=== PATIENT | male | born 1940 | race Caucasian/White ===

== ENCOUNTER 2016-11-20 19:35 | Inpatient (IN) | payer MEDICARE, OTHER ==
[~2016-11-20] VITALS: Ht 180.3 cm; Wt 87.4 kg
[~2016-11-20 19:35] MED LIST: ACET-2321 PO; ACET-62 PO; ACET325T51 PO; ASPI81TA2 PO; ATOR40TA64 PO; CARV25TA PO; CARV6.252 PO; CHOL100047 PO; CILO50TA PO; CLIN300C86 PO; DOCU-175 PO; DONE23TA7 PO; ESCI10TA PO; FLUT16SP EA NOSTRIL; FURO20TA4 PO; FURO40TA5 PO; IPRA3AMP AEROSOL; LATA2.5D7 BOTH EYES; MAGN400T6 PO; MULT-933 PO; NYST15CR TOP; OLAN20TA17 PO; PANT40TA27 PO; POLY17PO6 PO; POTA-81 PO; TIMO5DRO7 OP; VITA1TAB21 PO; WARF1TAB6 PO; WARF5TAB6 PO; [UNRECOGNIZED DRUG - CODE] BOTH EYES
[2016-11-20 19:43] VITALS: BP 126/92; PULSE 95; RESP 16; TEMP 97.6; O2SAT 96
--- OUTSIDE RECORDS SUMMARY | 2016-11-20 19:59 | XMS REPORT | Continuity of Care Document ---
Author Author [facility] Organization [facility] Address Unknown Phone Unavailable Allergies Active Description Code Type Severity Reaction Onset Reported/Identified Relationship to Patient Clinical Status Yes NKDA N/A N/A Yes No Known Drug Allergies No Known Drug Allergies Drug Allergy Unknown NKDA 03/02/2013 Medications Problems Date Dx Coded Attending Type Code Diagnosis Diagnosed By 03/09/2013 Raghu Barfield MD 272.4 HYPERLIPIDEMIA NEC/NOS 03/09/2013 Raghu Barfield MD 275.2 DIS MAGNESIUM METABOLISM 03/09/2013 Raghu Barfield MD 276.8 HYPOPOTASSEMIA 03/09/2013 Raghu Barfield MD 285.1 AC POSTHEMORRHAG ANEMIA 03/09/2013 Raghu Barfield MD 365.9 GLAUCOMA NOS 03/09/2013 Raghu Barfield MD 403.90 HYPTNSV CHR KID DIS, UNSPEC, 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 03/09/2013 Raghu Barfield MD 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 [place] CORONARY VESSEL 03/09/2013 Raghu Barfield MD 427.31 ATRIAL FIBRILLATION 03/09/2013 Raghu Barfield MD 428.0 CONGESTIVE HEART FAILURE NOS 03/09/2013 Raghu Barfield MD 585.9 CHRONIC KIDNEY DISEASE, UNSPECIFIED 03/09/2013 Raghu Barfield MD 715.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 03/09/2013 Raghu Barfield MD 719.46 JOINT PAIN-L/LEG 03/09/2013 Raghu Barfield MD V45.82 PERCUTANEOUS TRANSLUM CORON ANGIOPLASTY STATUS Procedures Code Description Performed By Performed On 81.54 TOTAL KNEE REPLACEMENT Raghu Barfield MD 03/09/2013 Results Test Result Range URINALYSIS WITH MICROSCOPIC - 03/02/13 13:45 UA LEUKOCYTE ESTERASE DIPSTICK NEGATIVE NEGATIVE UA NITRITE DIPSTICK NEGATIVE NEGATIVE UA PROTEIN DIPSTICK NEGATIVE NEGATIVE UA GLUCOSE DIPSTICK NEGATIVE NEGATIVE UA KETONE DIPSTICK NEGATIVE NEGATIVE UA UROBILINOGEN DIPSTICK NORMAL NORMAL UA BILIRUBIN DIPSTICK NEGATIVE NEGATIVE UA BLOOD DIPSTICK NEGATIVE NEGATIVE UA EPITHELIAL CELLS 1+ epi/hpf 0 - 1+ UA RBC 0-3 rbc/hpf 0 - 3 UA VOLUME FOR EXAM 12.0 mL (12mL STD) UA WBC 0-1 wbc/hpf 0 - 5 UA SPECIFIC GRAVITY 1.015 1.015-1.025 UR PH 7.0 5.0-7.0 MRSA SURVEILLANCE SCREEN - 03/02/13 13:45 Uncategorized CBC W/DIFF - 03/02/13 14:00 BASOPHIL # 0.1 k/cumm 0.0-0.2 BASOPHIL % 1 % 0-1 EOSINOPHIL # 0.4 k/cumm 0.1-0.5 EOSINOPHIL % 6 % 2-4 GRANULOCYTE # 4.8 k/cumm 2.0-9.0 GRANULOCYTE % 67 % 50-75 LYMPHOCYTE # 1.2 k/cumm 1.0-4.0 LYMPHOCYTE % 17 % 20-30 MEAN CELL HGB 32.2 pg 27.0-33.0 MEAN CELL HGB CONCENTRATION 35.0 g/dL 32.0-37.0 MEAN CELL VOLUME 91.9 fl 80.0-100.0 MONOCYTE # 0.7 k/cumm 0.1-1.0 MONOCYTE % 9 % 4-6 RED BLOOD CELL 4.47 m/cumm 4.00-6.00 RED CELL DISTRIBUTION WIDTH 12.4 % 11.0- 15.6 WHITE BLOOD CELL 7.2 k/cumm 5.0-10.0 HEMOGLOBIN 14.4 gm/dL 14.0-18.0 HEMATOCRIT 41.1 % 40.0-54.0 PLATELET COUNT 236 k/cumm 150-400 SED RATE - 03/02/13 14:00 SED RATE 10 mm/hr 0-7 PROTHROMBIN TIME WITH INR - 03/02/13 14:00 INTERNATIONAL NORMAL RATIO 2.9 0.9-1.1 PROTHROMBIN TIME 31.4 sec 9.3-12.2 PARTIAL THROMBOPLASTIN TIME - 03/02/13 14:00 PARTIAL THROMBOPLASTIN TIME 49 sec 24-36 METABOLIC PANEL, BASIC - 03/02/13 14:00 POTASSIUM 3.7 mmol/L 3.5-5.3 EST GFR (MDRD) 57 mL/min > 59 ANION GAP 8 mmol/L 5-15 EST CrCl (CG) 51 mL/min > 59 GLUCOSE 77 mg/dL 70-99 CALCIUM 9.5 mg/dL 8.5-10.1 BLOOD UREA NITROGEN 32 mg/dL 7-20 CREATININE 1.3 mg/dL 0.8-1.3 SODIUM 140 mmol/L 135-148 CHLORIDE 105 mmol/L 98-110 CARBON DIOXIDE 27 mmol/L 21-32 PROTHROMBIN TIME WITH INR - 03/09/13 09:48 INTERNATIONAL NORMAL RATIO 1.0 0.9-1.1 PROTHROMBIN TIME 11.3 sec 9.3-12.2 PROTHROMBIN TIME WITH INR - 03/09/13 14:39 INTERNATIONAL NORMAL RATIO 1.1 0.9-1.1 PROTHROMBIN TIME 11.7 sec 9.3-12.2 CBC - 03/10/13 04:34 MEAN CELL HGB 31.6 pg 27.0-33.0 MEAN CELL HGB CONCENTRATION 33.6 g/dL 32.0-37.0 MEAN CELL VOLUME 94.0 fl 80.0-100.0 RED BLOOD CELL 3.83 m/cumm 4.00-6.00 RED CELL DISTRIBUTION WIDTH 12.6 % 11.0- 15.6 WHITE BLOOD CELL 11.8 k/cumm 5.0-10.0 HEMOGLOBIN 12.1 gm/dL 14.0-18.0 HEMATOCRIT 36.0 % 40.0-54.0 PLATELET COUNT 171 k/cumm 150-400 METABOLIC PANEL, COMPREHN - 03/10/13 04:34 POTASSIUM 3.5 mmol/L 3.5-5.3 EST GFR (MDRD) 53 mL/min > 59 ANION GAP 7 mmol/L 5-15 EST CrCl (CG) 47 mL/min > 59 GLUCOSE 129 mg/dL 70-99 CALCIUM 8.3 mg/dL 8.5-10.1 BLOOD UREA NITROGEN 22 mg/dL 7-20 CREATININE 1.4 mg/dL 0.8-1.3 SODIUM 141 mmol/L 135-148 CHLORIDE 103 mmol/L 98-110 AST/SGOT 21 Units/L 10-37 ALT/SGPT 25 Units/L < 66 CARBON DIOXIDE 31 mmol/L 21-32 TOTAL PROTEIN 5.9 gm/dL 6.4-8.2 ALBUMIN 3.4 gm/dL 3.4-5.0 BILI TOTAL 0.8 mg/dL 0.0-1.0 ALKALINE PHOSPHATASE TOTAL 55 Units/L 50- 136 PROTHROMBIN TIME WITH INR - 03/10/13 04:34 INTERNATIONAL NORMAL RATIO 1.1 0.9-1.1 PROTHROMBIN TIME 11.9 sec 9.3-12.2 CBC - 03/11/13 04:47 MEAN CELL HGB 32.3 pg 27.0-33.0 MEAN CELL HGB CONCENTRATION 34.7 g/dL 32.0-37.0 MEAN CELL VOLUME 93.2 fl 80.0-100.0 RED BLOOD CELL 3.37 m/cumm 4.00-6.00 RED CELL DISTRIBUTION WIDTH 12.4 % 11.0- 15.6 WHITE BLOOD CELL 13.2 k/cumm 5.0-10.0 HEMOGLOBIN 10.9 gm/dL 14.0-18.0 HEMATOCRIT 31.4 % 40.0-54.0 PLATELET COUNT 166 k/cumm 150-400 PROTHROMBIN TIME WITH INR - 03/11/13 04:47 INTERNATIONAL NORMAL RATIO 1.5 0.9-1.1 PROTHROMBIN TIME 16.1 sec 9.3-12.2 METABOLIC PANEL, BASIC - 03/11/13 04:47 POTASSIUM 3.1 mmol/L 3.5-5.3 EST GFR (MDRD) > 60 mL/min > 59 ANION GAP 9 mmol/L 5-15 EST CrCl (CG) 55 mL/min > 59 GLUCOSE 158 mg/dL 70-99 CALCIUM 8.6 mg/dL 8.5-10.1 BLOOD UREA NITROGEN 19 mg/dL 7-20 CREATININE 1.2 mg/dL 0.8-1.3 SODIUM 139 mmol/L 135-148 CHLORIDE 104 mmol/L 98-110 CARBON DIOXIDE 26 mmol/L 21-32 CBC - 03/12/13 04:43 MEAN CELL HGB 31.9 pg 27.0-33.0 MEAN CELL HGB CONCENTRATION 34.4 g/dL 32.0-37.0 MEAN CELL VOLUME 92.9 fl 80.0-100.0 RED BLOOD CELL 3.10 m/cumm 4.00-6.00 RED CELL DISTRIBUTION WIDTH 12.6 % 11.0- 15.6 WHITE BLOOD CELL 11.6 k/cumm 5.0-10.0 HEMOGLOBIN 9.9 gm/dL 14.0-18.0 HEMATOCRIT 28.8 % 40.0-54.0 PLATELET COUNT 170 k/cumm 150-400 PROTHROMBIN TIME WITH INR - 03/12/13 04:43 INTERNATIONAL NORMAL RATIO 1.7 0.9-1.1 PROTHROMBIN TIME 18.6 sec 9.3-12.2 METABOLIC PANEL, BASIC - 03/12/13 04:43 POTASSIUM 3.4 mmol/L 3.5-5.3 EST GFR (MDRD) > 60 mL/min > 59 ANION GAP 9 mmol/L 5-15 EST CrCl (CG) 60 mL/min > 59 GLUCOSE 118 mg/dL 70-99 CALCIUM 8.8 mg/dL 8.5-10.1 BLOOD UREA NITROGEN 21 mg/dL 7-20 CREATININE 1.1 mg/dL 0.8-1.3 SODIUM 140 mmol/L 135-148 CHLORIDE 105 mmol/L 98-110 CARBON DIOXIDE 26 mmol/L 21-32 MAGNESIUM - 03/12/13 04:43 MAGNESIUM 1.6 mg/dL 1.8-2.4 Encounters ACCT No. Visit Date/Time Discharge Status Pt. Type Provider Facility Loc./Unit Complaint [id number] 03/09/2013 07:54:00 2012 14:57:00 DIS Inpatient Lico DUFFY, [facility] [id number] 03/02/2013 12:55:00 2012 12:55:00 DIS Outpatient Lico DUFFY, [facility] SHARI
--- OUTSIDE RECORDS SUMMARY | 2016-11-20 20:01 | XMS REPORT | Continuity of Care Document ---
Author Author [facility] Organization [facility] Address Unknown Phone Unavailable Support Name Relationship Address Phone ANIBAL WALSH MD Caregiver [address] [place] [address] Unavailable TORRES MIJARES MD Caregiver [address] [place] [address] Unavailable EMMANUELLE MINOR MD Caregiver [address] [place] [address] Unavailable CHAY HURD MD Caregiver [address] [place] [address] Unavailable LUPILLO MCKINLEY DPOA Next Of Kin [address] [place] [address] Insurance Providers Guarantor Onur Garay Address [address] [place] [address] Email DENIED 16 Payer Medicare Policy Number [id number] Subscriber's Name Onur Garay Relationship 18 Self Effective Date 03 Payer [employer] Medicare Supplement Policy Number [id number] Subscriber's Name Onur Garay Relationship 18 Self Group Number [id number] Advance Directives Directive Response Recorded Date/Time Advanced Directives Type Unable to Obtain 11/11/16 2:53pm Dr Montelongo Resuscitation Status Do Not Resuscitate 11/11/16 9:19pm Resuscitation Documents on File Yes 11/11/16 8:35pm DPOA for Healthcare Only Yes 11/16/16 8:56pm Living Will No 11/11/16 8:35pm Problems Active Problems Medical Problem Onset Date Status ASHD (arteriosclerotic heart disease) Unknown Chronic Alcohol use disorder, severe, in sustained remission, in controlled environment Unknown Alzheimer's dementia without behavioral disturbance Unknown Chronic Ambulatory dysfunction Unknown Atrial fibrillation with rapid ventricular response Unknown Chronic Atrial fibrillation, chronic Unknown Chronic Bursitis of right knee Unknown CKD (chronic kidney disease) Unknown Cardiomegaly Unknown Chronic Chronic kidney disease (CKD) stage G3a/A1, moderately decreased glomerular filtration rate (GFR) between 45-59 mL/min/1.73 square meter and albuminuria creatinine ratio less than 30 mg/g Unknown Chronic Dehydration Unknown Acute Dysphagia, oropharyngeal ~10/2016 Chronic Encephalopathy chronic Unknown Chronic GERD (gastroesophageal reflux disease) Unknown Chronic Hyperlipidemia Unknown Chronic Hypernatremia Unknown Resolved Hypertension Unknown Chronic Hypokalemia Unknown Resolved Major neurocognitive disorder Unknown Medication-induced movement disorder Unknown Osteoarthritis of right knee Unknown Chronic Parkinsonian tremor Unknown Pericardial effusion Unknown Chronic Schizophrenia, unspecified Unknown Chronic Sinusitis Unknown Unspecified psychosis not due to a substance or known physiological condition Unknown Past Problems Medical Problem Onset Date Pneumonia Unknown Sepsis Unknown Medications Current Home Medications Medication Dose Units Route Directions Days Qty Instructions Start Date Acetaminophen (Tylenol) 325 Mg Tablet 325-650 Mg Oral Every 5 Hours as needed for Discomfort 30 Tablet 11/20/16 Aspirin 81 Mg Tab.chew 81 Mg Oral Daily 11/11/16 Atorvastatin Calcium 40 Mg Tablet 40 Mg Oral Bedtime 11/11/16 Carvedilol (Coreg) 25 Mg Tablet 25 Mg Oral Twice Daily With Meals 60 Tablet 11/20/16 Cholecalciferol (Vitamin D3) (Vitamin D) 1,000 Unit Tablet 1,000 Unit Oral Daily 11/11/16 Cilostazol 50 Mg Tablet 50 Mg Oral Daily 11/11/16 Clindamycin Hcl 300 Mg Capsule 1 Cap Oral Three Times A Day 5 Days 15 Capsule TAKE WITH A FULL GLASS OF WATER TO AVOID ESOPHAGEAL IRRITATION. Docusate Sodium 100 Mg Capsule 100 Mg Oral Daily 11/11/16 Dorzolamide Hcl/Timolol Maleat (Cosopt Eye Drops) 10 Ml Drops 1 Drop Both Eyes Daily 11/11/16 Escitalopram Oxalate (Lexapro) 10 Mg Tablet 10 Mg Oral Daily Fluticasone Propionate (Fluticasone Prop 50 Mcg/Actuation Nasal [place]) 120 [place]/16 G [place] 1 [place] Each Nostril Daily 1 Milliliter 11/20/16 Furosemide 20 Mg Tablet 20 Mg Oral 08,14 60 Tablet 11/20/16 Ipratropium/Albuterol Sulfate (Iprat-Albut 0.5-3(2.5) Mg/3 Ml) 3 Ml Ampul.neb 3 Ml Aerosol Tx. Twice A Day 1 Box 11/20/16 Ipratropium/Albuterol Sulfate (Iprat-Albut 0.5-3(2.5) Mg/3 Ml) 3 Ml Ampul.neb 3 Ml Aerosol Tx. Every Two Hours as needed for Shortness Of Air/Wheezing 1 Box 11/20/16 Latanoprost 2.5 Ml Drops 1 Drop Both Eyes Bedtime 11/11/16 Magnesium Oxide 400 Mg Tablet 400 Mg Oral Twice A Day 11/11/16 Multivitamin (Multi-Day Vitamins) 1 Each Tablet 1 Tab Oral Daily 11/11/16 Pantoprazole Sodium 40 Mg Tablet.dr 40 Mg Oral Daily 11/11/16 Polyethylene Glycol 3350 (Miralax) 17 Gm Powd.pack 17 G Oral Every Other Day 11/11/16 Potassium Chloride 20 Meq Tablet.er 20 Meq Oral Twice A Day 11/11 Timolol Maleate 5 Ml Drops 1 Drop Ophthalmic Twice A Day 11/11/16 Vitamin B Complex 1 Each Tablet 1 Tab Oral Daily 11/11/16 Past Home Medications Medication Directions Ordered Status Acetaminophen 500 Mg Tablet, 500 Mg Oral Every 4 Hours as needed for Pain Discontinued Acetaminophen 325 Mg Tablet, 2 Tab Oral Every 6 Hours as needed for Pain Discontinued Carvedilol 6.25 Mg Tablet, 6.25 Mg Oral Twice A Day 11/11/16 Discontinued Donepezil Hcl 23 Mg Tablet, 23 Mg Oral Bedtime 11/11/16 Discontinued Furosemide 40 Mg Tablet, 40 Mg Oral Daily 11/11/16 Discontinued Nystatin 15 Applic/15 G Cr, 1 Applic Topically Twice A Day as needed for Prn Orders 11/11/16 Discontinued Olanzapine 20 Mg Tablet, 20 Mg Oral Daily 11/11/16 Discontinued Warfarin Sodium 1 Mg Tablet, 0.5 Mg Oral Daily 11/11/16 Discontinued Warfarin Sodium 5 Mg Tablet, 5 Mg Oral Bedtime 11/11/16 Discontinued Social History Social History Problem Response Recorded Date/Time Onset Date Status Reason for Hospitalization pneumonia, sepsis 11/20/2016 6:46pm Not Applicable Not Applicable Chewing Tobacco Status No 11/11/2016 5:37pm Not Applicable Not Applicable Hx Substance Use No 11/11/2016 5:37pm Not Applicable Not Applicable Hx Alcohol Use No 11/11/2016 5:37pm Not Applicable Not Applicable Has the pt used tobacco in the last 12 months No 11/12/2016 9:18am Not Applicable Not Applicable Query Response Start Date Stop Date Smoking Status Never smoker Hospital Discharge Instructions Instructions: Care Instructions: Reason for Hospitalization: pneumonia, sepsis I was in the hospital because (patient own words): Pt nonverbal. Discharge Diet: mechanical soft diet, chopped meats, regular liquids, sit up at 90 for po Discharge Activity: up with sit to stand lift Follow Up Appointments: follow up with Dr Walsh at discharge Pending Lab / Results: No Pending Lab Wound/Incision Care: n/a Pain Management/Treatment: tylenol Expected Signs/Symptoms: n/a Notify Physician If: fever, elevated heart rate, dyspnea During Business Hours:: Please call the physician's office at hospital After Business Hours:: Please call [phone] and have the pulverizer operator page the physician. Condition at time of discharge: Good Plan of Care Discharge Date 11/20/16 7:28pm Disposition 63 TO [facility] Instructions/Education Provided Sepsis (GEN) Prescriptions See Medication Section Additional Instructions/Education Psychiatric medications per psychiatry We'll check daily INR and consult pharmacy for warfarin management-hospitalist will order Check basic metabolic profile tomorrow-hospitalist will order Consult PT for strengthening-hospitalist will order Care Plan and Goals See Discharge Instructions Section Functional Status Query Response Date Recorded Mobility Status Transfer w/assist November 20, 2016 6:46pm Assistive Devices Wheelchair November 20, 2016 6:46pm Activity Limitations Weakness Fatigue Shortness of breath November 20, 2016 6:46pm Feeding Ability Independent November 20, 2016 6:46pm Toileting Ability Dependent November 20, 2016 6:46pm Grooming Ability Dependent November 20, 2016 6:46pm Dressing Ability Dependent November 20, 2016 6:46pm Driving Ability Dependent November 20, 2016 6:46pm Housework Ability Dependent November 20, 2016 6:46pm Meal Preparation Ability Dependent November 20, 2016 6:46pm Stair Climbing Ability Dependent November 20, 2016 6:46pm Ability to complete ADL's impeded by Impaired Mobility Change in Cognition November 20, 2016 6:46pm Cognitive/Perceptual Impairments Chronic confusion Imp. verbal communication November 20, 2016 6:46pm Preferred Method of Learning Listening November 14, 2016 11:32pm Allergies, Adverse Reactions, Alerts No known allergies. Immunizations Query Response on File Recorded Date/Time Influenza Vaccine Hx 06/201611/14/16 12:00pm Vital Signs Acute Vital Signs Vital Response Date/Time Temperature (Fahrenheit) 97.5 deg F (96.8 - 99.1) 11/20/2016 3:43pm Temperature (Calculated Celsius) 36.24746 degrees C (36.0 - 37.3) 11/20/2016 3:43pm Pulse Rate (adult) 100 bpm (60 - 100) 11/20/2016 3:43pm Respiratory Rate 18 breaths/min (10 - 20) 11/20/2016 3:43pm O2 Sat by Pulse Oximetry 94 % (90 - 100) 11/20/2016 3:43pm Oxygen Delivery Method Nasal Cannula 11/14/2016 8:01pm Oxygen Delivery Method Room Air 11/20/2016 3:43pm Oxygen Flow Rate 1.00 L/min 11/15/2016 12:05am Blood Pressure 150/95 mm Hg 11/20/2016 3:43pm Blood Pressure Source Automatic Cuff 11/20/2016 3:43pm Height (Feet) 5 feet 11/19/2016 4:18pm Height (Inches) 11.00 inches 11/19/2016 4:18pm Weight (Kilograms) 88.100 kg 11/20/2016 7:48am Body Mass Index (BMI) 25.6 11/11/2016 11:06pm Results Laboratory Results Test Name Result Units Flags Reference Collection Date/Time Result Date/ Time Comments White Blood Count 8.9 T/MM3 4.5-11.0 11/18/2016 6:08am 11/18/2016 6: 24am Red Blood Count 4.12 M/MM3 L 4.50-5.90 11/18/2016 6:08am 11/18/2016 6: 24am Hemoglobin 11.3 GM/DL L 13.5-17.5 11/18/2016 6:08am 11/18/2016 6:24am Hematocrit 36.8 % L 41-53 11/18/2016 6:08am 11/18/2016 6:24am Mean Corpuscular Volume 89.3 UM3 80-100 11/18/2016 6:08am 11/18/2016 6: 24am Mean Corpuscular Hemoglobin 27.4 UUG 26-34 11/18/2016 6:08am 2016 6:24am Mean Corpuscular Hemoglobin Concent 30.7 GM/DL L 31-37 11/18/2016 6:08am 11/18/2016 6:24am RDW Standard Deviation 56.5 FL H 36.9-50.2 11/18/2016 6:0811/18/2016 6:24am Platelet Count 293 T/MM3 130-400 11/18/2016 6:0811/18/2016 6:24am Mean Platelet Volume 9.9 UM3 9.4-12.4 11/18/2016 6:0811/18/2016 6: 24am Neutrophils (%) (Auto) 82.6 % H 33-66 11/18/2016 6:0811/18/2016 6: 24am Lymphocytes (%) (Auto) 8.9 % L 23-45 11/18/2016 6:0811/18/2016 6: 24am Monocytes (%) (Auto) 8.1 % 0-9.0 11/18/2016 6:0811/18/2016 6:24am Eosinophils (%) (Auto) 0.0 % 0-4 11/18/2016 6:0811/18/2016 6:24am Basophils (%) (Auto) 0.1 % 0-2 11/18/2016 6:0811/18/2016 6:24am Immature Granulocyte % (Auto) 0.3 % 0.0-0.5 11/18/2016 6:082016 6:24am Absolute Neutrophils (auto) 7.3 T/MM3 1.8-7.7 11/18/2016 6:082016 6:24am Absolute Lymphocytes (auto) 0.8 T/MM3 L 1-4.8 11/18/2016 6:082016 6:24am Absolute Monocytes (auto) 0.7 T/MM3 0-0.8 11/18/2016 6:0811/18/2016 6:24am Absolute Eosinophils (auto) 0.0 T/MM3 0-0.5 11/18/2016 6:082016 6:24am Absolute Basophils (auto) 0.0 T/MM3 0-0.2 11/18/2016 6:0811/18/2016 6:24am Absolute Immature Granulocyte (auto 0.03 T/MM3 0.00-0.03 11/18/2016 6: 0811/18/2016 6:24am Neutrophils % (Manual) 96.0 % H 3366 11/15/2016 4:29am 11/15/2016 5: 38am Band Neutrophils % 3.0 % 0-6 11/11/2016 3:pm 11/11/2016 3:55pm Lymphocytes % (Manual) 4.0 % L 23-45 11/15/2016 4:am 11/15/2016 5: 38am Monocytes % (Manual) 10.0 % H 0-9.0 11/11/2016 3:pm 11/11/2016 3:55pm Band Neutrophils # 0.3 T/MM3 11/11/2016 3:pm 11/11/2016 3:55pm Absolute Neutrophils (Manual) 6.2 T/MM3 1.8-7.7 11/15/2016 4:am 11/15 5:38am Lymphocytes # (Manual) 0.3 T/MM3 L 1-4.8 11/15/2016 4:11/15/2016 5: 38am Monocytes # (Manual) 1.1 T/MM3 H 0-0.8 11/11/2016 3:pm 11/11/2016 3: 55pm Red Cell Morphology Comment NORMAL 11/15/2016 4:11/15/2016 5: 38am Prothromb Time International Ratio 1.97 H 0.76-1.04 11/20/2016 4:11/20/2016 5:15am THERAPUTIC RANGE=2.00-3.00 FOR ANTI-THROMBOSIS THERAPUTIC RANGE=2.50-3.50 FOR IMPLANTED VALVE Icterus Index < 2 0-7 11/20/2016 4:11/20/2016 10:15am Chemistry Specimen Hemolysis < 15 0-25 11/20/2016 4:11/20/2016 10:15am 0-25: Specimen Exhibited No Hemolysis. Turbidity < 20 0-20 11/20/2016 4:11/20/2016 10:15am Sodium Level 142 MEQ/L 134-144 11/20/2016 4:11/20/2016 10:15am Potassium Level 3.3 MEQ/L L 3.6-5 11/20/2016 4:11/20/2016 10:15am Chloride Level 103 MEQ/L 98-107 11/20/2016 4:11/20/2016 10:15am Carbon Dioxide Level 31 MEQ/L H 22-30 11/20/2016 4:11/20/2016 10: 15am Anion Gap 8 MEQ/L 5-15 11/20/2016 4:11/20/2016 10:15am Blood Urea Nitrogen 34.0 MG/DL H 9-20 11/20/2016 4:11/20/2016 10: 15am Creatinine 1.1 MG/DL 0.8-1.5 11/20/2016 4:11/20/2016 10:15am BUN/Creatinine Ratio 31 RATIO H 6-11/20/2016 4:11/20/2016 10: 15am Glomerular Filtration Rate Calc 65 11/20/2016 4:11/20/2016 10: 15am Glucose Level 120 MG/DL H 75-110 11/20/2016 4:11/20/2016 10:15am Calculated Osmolality 282 MOSM/KG H 261-280 11/20/2016 4:2016 10:15am Calcium Level 9.5 MG/DL 8.4-10.2 11/20/2016 4:11/20/2016 10:15am Ionized Calcium (Measured) 1.43 MMOL/L H 1.12-1.32 11/18/2016 3:07am 01/2017 3:28am Phosphorus Level 3.2 MG/DL 2.5-4.5 11/18/2016 3:07am 11/19/2016 3:06pm Total Bilirubin 0.50 MG/DL 0.20-1.30 11/12/2016 4:54am 11/12/2016 5: 42am Alkaline Phosphatase 54 U/L 38-126 11/12/2016 4:54am 11/12/2016 5:42am Total Protein 6.1 G/DL L 6.3-8.2 11/12/2016 4:54am 11/12/2016 5:42am Albumin 2.6 G/DL L 3.5-5.0 11/19/2016 4:38am 11/19/2016 5:05am Globulin 3.3 G/DL 2.4-3.6 11/12/2016 4:54am 11/12/2016 5:42am Albumin/Globulin Ratio 0.8 RATIO L 1.1-2.2 11/12/2016 4:54am 11/12/2016 5:42am Aspartate Amino Transf (AST/SGOT) 41 U/L 17-59 11/12/2016 4:54am 2016 5:42am Alanine Aminotransferase (ALT/SGPT) 42 U/L 21-72 11/12/2016 4:54am 5:42am Total Creatine Kinase 34 U/L L 55-170 11/16/2016 4:42am 11/16/2016 5: 21am FQ-Vhi-Q-Type Natriuretic Peptide 6580 PG/ML H 0-175 11/18/2016 3:07am 11/18/2016 3:38am Rule in cut points: <50 years old=450; 50-75 years old=900; >75 years old=1800; When utilizing ProBNP rule-in cut points, adjustment for impaired renal function is typically not required. Magnesium Level 1.7 MG/DL 1.6-2.3 11/20/2016 4:28am 11/20/2016 10:15am Uric Acid 5.4 MG/DL 3.5-8.5 11/18/2016 6:08am 11/19/2016 3:09pm Plasma Lactate 1.2 MMOL/L 0.6-2.2 11/11/2016 11:59pm 11/12/2016 12: 17am Procalcitonin 4.94 NG/ML *H 11/12/2016 4:54am 11/12/2016 6:50am PCT </ =0.5 ng/mL - sepsis not likely; PCT >0.5 and </=2 ng/mL - sepsis possible; PCT >2 ng/mL - sepsis likely; PCT >/=10 ng/mL - systemic inflammatory response - sepsis or septic shock highly indicated. Vancomycin Level Trough 15.15 UG/ML 15-20 11/13/2016 4:39am 11/13/2016 5:27am Thyroid Stimulating Hormone (TSH) 1.60 MIU/L 0.47-4.68 11/15/2016 4: 29am 11/15/2016 5:37pm Parathyroid Hormone (Intact) 62.3 PG/ML 12.1-64.0 11/18/2016 3:07am 01/2017 7:51am Influenza Type A Antigen NEGATIVE NEGATIVE 11/11/2016 5:32pm 2016 5:58pm Negative for Flu A protein antigen. Assay sensitivity is 90%. Influenza Type B Antigen NEGATIVE NEGATIVE 11/11/2016 5:32pm 2016 5:58pm Negative for Flu B protein antigen. Assay sensitivity is 90%. MRSA Specimen Source NASAL 11/12/2016 4:09pm 11/12/2016 5:34pm Methicillin-Resist S.aureus DNA PCR NEGATIVE NEGATIVE 11/12/2016 4: 09pm 11/12/2016 5:34pm Urine Collection Type BURNETTE INDWELLING 11/11/2016 4:30pm 2016 4:44pm Urine Color YELLOW YELLOW 11/11/2016 4:30pm 11/11/2016 4:44pm Urine Turbidity CLEAR CLEAR 11/11/2016 4:30pm 11/11/2016 4:44pm Urine Specific [place] 1.015 1.015-1.025 11/11/2016 4:30pm 2016 4:44pm Urine pH 6.5 5.0-8.0 11/11/2016 4:30pm 11/11/2016 4:44pm Urine Leukocyte Esterase NEGATIVE NEGATIVE 11/11/2016 4:30pm 2016 4:44pm Urine Nitrite NEGATIVE NEGATIVE 11/11/2016 4:30pm 11/11/2016 4:44pm Urine Protein NEGATIVE NEGATIVE 11/11/2016 4:30pm 11/11/2016 4:44pm Urine Glucose (UA) NEGATIVE NEGATIVE 11/11/2016 4:30pm 11/11/2016 4: 44pm Urine Ketones NEGATIVE NEGATIVE 11/11/2016 4:30pm 11/11/2016 4:44pm Urine Urobilinogen 0.2 EU/DL NORMAL 11/11/2016 4:30pm 11/11/2016 4: 44pm Urine Bilirubin NEGATIVE NEGATIVE 11/11/2016 4:30pm 11/11/2016 4: 44pm Urine Blood 1+ A NEGATIVE 11/11/2016 4:30pm 11/11/2016 4:44pm Urine WBC NONE SEEN /HPF 0-5 11/11/2016 4:30pm 11/11/2016 4:54pm Urine RBC 5-10 /HPF H 0-3 11/11/2016 4:30pm 11/11/2016 4:54pm Urine Bacteria TRACE H NEGATIVE 11/11/2016 4:30pm 11/11/2016 4:54pm Urine Culture Indicated CULT NOT INDICATED 11/11/2016 4:30pm 2016 4:54pm Microbiology Results Procedure Source Organism/Result Collection Date/Time Result Date/Time Result Status Sputum Culture Sputum, Suctioned Sputum NORMAL HEIDI 11/11/2016 3:29pm 10/2016 7:50am Final STAPHYLOCOCCUS AUREUS 11/11/2016 3:29pm 11/15/2016 7:50am Final Urine Culture Urine, [place] Indwelling NO GROWTH AFTER 48 HOURS 11/11/2016 4 :30pm 11/14/2016 7:05am Final Blood Culture Peripheral/Iv Start NO GROWTH AFTER 5 DAYS 11/11/2016 3:42pm 11/16/2016 6:11pm Final Name: ONUR GARAY Unit #: [id number] : 1940 Sex: M DISCHARGE SUMMARY Admit Date: 11/11/16 Report #: [id number] [facility] General Date Date DATE: 11/20/16 TIME: 18:44 Attending Physician Torres Mijares MD Admitting Physician Torres Mijares MD Consulting Physician Minda Hdez MD Admitting Diagnosis sepsis, HCAP, acute hypoxic resp failure Discharge Diagnosis Pneumonia right upper lobe and right lower lobe, consistent with aspiration- currently on day 9 of antibiotics, tolerating oral clindamycin Sepsis Parkinsonian tremor Alzheimer's dementia Schizophrenia with recent recurrence of hallucinations especially at night Encephalopathy chronic A. fib chronic Rapid ventricular response-resolved with increased cord dose Chronic anticoagulation with Coumadin Chronic kidney disease Dysphagia-resolved Hypernatremia-resolved Dehydration-resolved Fluid overload-improved, changed to oral Lasix prior to discharge Muscle rigidity possible secondary to Zyprexa Pansinusitis with air-fluid levels-continue clindamycin for 5 more days for a total of 14 days treatment with antibiotics Procedures None Laboratory Item Value Date Time White Blood Count 8.9 T/MM3 11/18/16 0608 Red Blood Count 4.12 M/MM3 L 11/18/16 0608 Hemoglobin 11.3 GM/DL L 11/18/16 0608 Hematocrit 36.8 % L 11/18/16 0608 Mean Corpuscular Volume 89.3 UM3 11/18/16 0608 Mean Corpuscular Hemoglobin 27.4 UUG 11/18/16 0608 Mean Corpuscular Hemoglobin Concent 30.7 GM/DL L 11/18/16 0608 RDW Standard Deviation 56.5 FL H 11/18/16 0608 Platelet Count 293 T/MM3 11/18/16 0608 Prothromb Time International Ratio 1.97 H 11/20/16 0428 Prothromb Time International Ratio 2.31 H 11/19/16 0438 Prothromb Time International Ratio 1.55 H 11/18/16 0307 Prothromb Time International Ratio 1.55 H 11/17/16 0435 Prothromb Time International Ratio 3.39 H 11/16/16 0442 Prothromb Time International Ratio 5.38 *H 11/15/16 0429 Prothromb Time International Ratio 5.07 *H 11/14/16 0442 Prothromb Time International Ratio 5.72 *H 11/13/16 0439 Prothromb Time International Ratio 5.68 *H 11/12/16 0454 Prothromb Time International Ratio 3.94 H 11/11/16 1529 PW-Pez-W-Type Natriuretic Peptide 6580 PG/ML H 11/18/16 0307 Calcium Level 10.1 MG/DL 11/18/16 0608 Calcium Level 9.5 MG/DL 11/20/16 0428 Procalcitonin 6.37 NG/ML *H 11/11/16 1529 Plasma Lactate 1.2 MMOL/L 11/11/16 2359 Procalcitonin 4.94 NG/ML *H 11/12/16 0454 Laboratory Tests Test 11/20/16 04:28 Prothromb Time International Ratio 1.97 (0.76-1.04) Turbidity < 20 (0-20) Sodium Level 142MEQ/L (134-144) Potassium Level 3.3MEQ/L (3.6-5) Chloride Level 103MEQ/L (98-107) Carbon Dioxide Level 31MEQ/L (22-30) Anion Gap 8MEQ/L (5-15) Blood Urea Nitrogen 34.0MG/DL (9-20) Creatinine 1.1MG/DL (0.8-1.5) Glomerular Filtration Rate Calc 65 BUN/Creatinine Ratio 31RATIO (6-26) Glucose Level 120MG/DL (75-110) Calculated Osmolality 282MOSM/KG (261-280) Calcium Level 9.5MG/DL (8.4-10.2) Magnesium Level 1.7MG/DL (1.6-2.3) Icterus Index < 2 (0-7) Chemistry Specimen Hemolysis < 15 (0-25) Microbiology Blood cultures negative 2 from 11/11/2016 Urine culture negative from 11/11/2016 GRAM STAIN Final 11/12/16-1593 RESULT FEW GRAM POSITIVE RODS FEW GRAM NEGATIVE RODS FEW GRAM POSITIVE COCCI IN PAIRS FEW EPITHELIAL CELLS MANY WHITE BLOOD CELLS SPUTUM CULTURE Final 11/15/16-5069 Organism 1 STAPHYLOCOCCUS AUREUS QUANTITY: SLIGHT GROWTH Organism 2 NORMAL HEIDI QUANTITY: MODERATE GROWTH S AUREUS INTERP SCOOBY ------ --------- CIPROFLOXACIN S <=0.5 CLINDAMYCIN S <=0.12 DOXYCYCLINE S <=0.5 ERYTHROMYCIN S <=0.25 GENTAMICIN S <=0.5 LEVOFLOXACIN S <=0.12 LINEZOLID S 2 OXACILLIN S <=0.25 TETRACYCLINE S <=1 TIGECYCLINE S <=0.12 TRIMETH/SULFA S <=10 VANCOMYCIN S <=0.5 SPUTUM CULTURE Preliminary (changed) 11/15/164761 Organism 1 STAPHYLOCOCCUS AUREUS QUANTITY: SLIGHT GROWTH Organism 2 NORMAL HEIDI QUANTITY: MODERATE GROWTH Radiology Chest x-ray on admission showed right-sided pneumonia. There is probably an element of mild congestive failure as well. Severe enlargement of the cardiac silhouette could be due to cardiomegaly or pericardial effusion Chest x-ray prior to discharge shows small bilateral effusions left greater than right. Left pleural fluid is increased. Fluid along the right minor fissure is again noted. Compressive atelectasis noted in both lower lobes. No pneumothorax. CT head done due to increased weakness and new tremor showed no acute intracranial abnormality or hemorrhage. Pansinusitis was seen. History of Present Illness Mr. Garay is a 76-year-old gentleman who resides at [facility]. He is nonverbal today, unclear if this is his baseline, and no further information can be obtained from the patient so the bulk of what is available here is from review of the scant records sent with him today as he has not been admitted here previously. It seems he has a history of alzheimers dementia and schizophrenia as well as HTN, CKD III, chronic encephalopathy (? etiology) as well as CAD, dysphagia, atrial fibrillation. He was febrile today and was sent in for evaluation; CXR demonstrates both RUL and RLL infiltrates. Urinalysis is not concerning for infection. He is septic with tachycardia, and fever; his mental status may be in part to sepsis but unable to d etermine his baseline. In the ED he has received IVF bolus, blood cultures were drawn, he is receiving vancomycin, cefepime, levaquin for broad spectrum HCAP coverage. Per records from the nursing facility he does have an active DNR order and a copy was sent with him. Hospital Course 11/11/16 Admit to the floor with telemetry monitoring for sepsis and HCAP with acute hypoxic respiratory failure Continue IV vancomycin, cefepime, levaquin for broad spectrum coverage with cultures pending 02 support as needed and duoneb treatments as well as RT assessment tonight Hold warfarin anticoagulation and check daily INR, goal 2-3 for afib management Hold antihypertensives acutely due to sepsis; hemodynamics stable currently NS @ 100 cc/hour overnight Keep NPO until swallow can be evaluated by speech tomorrow given h/o dysphagia and altered mental status on arrival Hold home medications until they can be administered safely Repeat CMP, CBC in am for surveillance Will make DNR based on signed DNR order that accompanies him from his nursing facility. 11/12 Clinically improving with patient now responding verbally and able to provide limited history. Discussed with patient's daughter who denies history of dementia although reports patient has been increasingly confused over the past 3 weeks. She describes history of schizophrenia with onset of hallucinations about one year ago requiring several psychiatric hospitalizations and culminating in care home placement. The patient's daughter Lupillo is the patient's DPOA. Patient has an effective cough and continues to require 5-6 L of supplemental oxygen. Speech therapy has seen the patient and recommended pured diet with thickened liquids; aspiration pneumonia likely based on degree of dysphasia and radiographic findings. White count somewhat improved following initiation of antibiotics. Continue same pending blood cultures but will hopefully be able to de-escalate tomorrow. Dr. Hdez consulted for tremors which are consistent with Parkinson's but may be due to psychiatric medications. Haldol discontinued and Zyprexa on hold. Formal psychiatric consultation may become necessary. Attempting to clarify where patient previously hospitalized for psychiatric care so records can be obtained. Resume carvedilol for rate control provided systolic blood pressure above 90. Renal function slightly improved, urine output borderline but oxygenation precludes high-volume fluids. Resume Lasix. Cardiomegaly present on chest [id number] if due to CHF or pericardial effusion, medications consistent with cardiomyopathy/CHF. Will attempt to obtain outpatient records. INR elevated-warfarin on hold. 11/13 Clinically improving with decreased oxygen demand. White count and chest x-ray improved following initiation of antibiotics. Blood cultures negative, patient afebrile. Presentation consistent with aspiration pneumonia/ pneumonitis. Discontinue vancomycin (MRSA swab negative), discontinue Levaquin and cefepime. Convert to Unysyn as single agent. Patient's ex- reports prior hospitalizations in [place] for psychiatric care and outpatient psychiatric care at mental health clinic in [facility]. She additionally reported that the patient's past physician (Dr. Chay Musa in [place], ) would have information regarding past hospitalizations. Tremor significantly improved with initiation of Sinemet and discontinuation of Zyprexa. We'll need to obtain psychiatric records tomorrow. Resume atorvastatin and Pletal in light of history of coronary disease and PVD. Continue carvedilol at current dose but may require slight increase for rate control or addition of second agent. INR remains significantly elevated-warfarin on hold. PT initiated. Bladder retraining overnight-discontinue Burnette in a.m. 11/14 Clinically improving with decreased oxygen demand and currently on 1 L. White count and chest x-ray improved following initiation of antibiotics. Blood cultures negative. Recurrent low-grade fever, probable intermittent aspiration. Speech therapy working with patient. Sputum culture with staph aureus- sensitivity pending, add doxycycline to Unysyn. Spoke with prior caregiver (Dr. Chay Musa in [place], ) who reported patient clearly has dementia but was uncertain of prior psychiatric hospitalizations she had been out on maternity leave. She confirmed that the patient had been hearing voices and had been threatening his based on instructions of the voices he heard. She additionally reported that the patient did not have a tremor when she was seeing him 6 months ago prior to that time which corresponds to pretreatment with antipsychotics. Psychiatry to see. Tremor significantly improved with initiation of Sinemet but not resolved, increase Sinemet to 3 times a day. Discussed the potential conflict in managing Parkinsonian symptoms and psychosis with the patient's daughter Resume atorvastatin and Pletal in light of history of coronary disease and PVD. Carvedilol dose increased for improved rate control, the pressure will support modification in dose. INR remains modestly elevated, warfarin on hold PT initiated. discontinue Burnette catheter. Potassium to be replaced orally and added to IV fluids to prevent recurrent hypokalemia.. 3/2 Clinically improving with decreased white count, resolution of fever, and currently on room air. Chest x-ray to be reassessed in the morning. Staph aureus pansensitive- doxycycline and Unasyn discontinued, clindamycin initiated orally. Continues to have significant tachyarrhythmia with A. fib. Single dose digoxin given IV without slowing; cardiology consulted and echocardiogram being obtained-significant cardiomegaly on chest x- ray, probable underlying cardiomyopathy versus pericardial effusion. Tremor significantly improved although still present and muscle tone remains increased. No further adjustment in Sinemet at this time. On atorvastatin and Pletal in light of history of coronary disease and PVD. Carvedilol dose increased for improved rate control yesterday. INR remains modestly elevated, warfarin on hold since admission, will give 1 mg vitamin K orally today. PT initiated, poor exercise tolerance demonstrated with initial evaluation. discontinue Burnette catheter. Potassium improved, sodium climbing and normal saline discontinued. Psychiatry consultation anticipated today. 3/3 Aspiration pneumonia is radiographically and clinically improved. Patient on room air. Previously treated with triple antibiotics later narrowed to Unasyn and now on oral clindamycin-day 2. Doing well. Remains on pured diet with nectar thickened liquids but speech therapy indicates patient is progressing. There is indication of dehydration with worsening hypernatremia, increasing BUN and minor increase in creatinine/calcium. Half-normal saline started at 75 mL per hour 1 L, labs to be reevaluated in the morning. Persistent tachycardia, carvedilol dose increased yesterday. Dehydration likely contributing. May require saline bolus in addition to above fluids. Tremor significantly improved and rigidity not as bad as it was prior days. Discussed with Dr. Dixon last night who expressed concern that Zyprexa may have induced extrapyramidal symptoms causing the motor symptoms/tremor. Subsequently Sinemet has been discontinued. Cogentin trial plan today. Anticipate discharge to [facility] unit for further evaluation of hallucinations and underlying psychiatric disorder when medically stable and bed available. On atorvastatin and Pletal in light of history of coronary disease and PVD. INR improving, warfarin on hold since admission, anticipate resuming warfarin if INR lower tomorrow. Continue PT/OT/speech therapy. 11/17/16 Pt's mentation stable. Persistent tachy is likely afib with rvr and will evaluate with EKG and try to control better with meds. Work up high Ca, treat hypernatremia (as noted in problem list). Restart Warfarin as INR finally down. Will plan for total of 10 days of abx, currently on D7. Cont. to optimize medically for a transfer to [facility] on Saturday. 11/18/16 Pt seems to be hypervolemic, possibly why he's going into RVR. Echo results don' t seem to be that impressive but mild HFrEF is present. Will try to diurese gently and see how he responds. Otherwise stable, cont. abx tx. Pt will need neuro/psych eval to figure out if he needs further treatment for parkinsonian like sx's. Likely can go to [facility] early next week. 11/18/2016 Aspiration PNA -Much improved -On Clinda currently, total Abx D7/10 -Cx's inconclusive Afib -Tachycardia has been persistent, EKG shows afib with RVR -Will increase Carvedilol to 25mg BID, re-started Warfarin on 11/17 -INR subtherapeutic since just re-started Warfarin (initially supra-therapeutic) , no need for bridging CHF -Echo 11/15/16-->EF 45-50%, LVH -BNP ~6500, LE swelling-->Becoming hypervolemic, could be why pt going into RVR -CXR shows mild effusion with some edema but nothing too impressive -Will have to monitor closely with uptitrated Carvedilol -Will give test dose of lasix and monitor response and then likely start 20mg IV BID lasix and titrate up as needed -Compression stockings, low salt diet, daily weights Hypercalcemia -Even higher when corrected for albumin, ionized Ca elevated at 1.43 -PTH pending Hypernatremia -Likely due to ongoing water losses and poor intake of replacement d/t AMS -Needed 200ml/hr D5 overnight, Na improved to 147, cont. 150ml/hr and check Na this afternoon -Since more acute/subacute in nature, can correct a bit more rapidly Dysphagia -Speech/Swallow following, puree diet Muscle Rigidity -Improved -Possibly extrapyramidal sx's related to zyprexa, d/c zyprexa -Psych following -PT/OT Dementia/Schizophrenia -Stable, psych following -Only psych med currently started is lexapro Ppx DVT-On warfarin 11/20/2016-Dr. Mijares Overall, the patient is medically improving. He is on day 9 of antibiotics for aspiration pneumonia and pansinusitis. I would recommend a 14 day course of antibiotics, and therefore he will need 5 more days of oral clindamycin to finish his course. His diet has been upgraded to regular liquids and soft mechanical with chopped meats. Vital signs have improved and heart rate is no longer tachycardic with an increase in his Coreg. Hypernatremia has resolved. Fluid overload is improved and he we'll be dismissed on twice-daily Lasix. We'll need to monitor fluid status closely. The patient is being [facility] for treatment of his schizophrenia. All of his psychiatric medications were held this hospitalization. He had a possible reaction to Zyprexa with increased rigidity. He continues to have cogwheeling in the arms. He has been getting up with a [id number] lift. We'll consult physical therapy to see him in [facility]. Regarding chronic A. fib, he will continue chronic anticoagulation with Coumadin. Will consult pharmacy to manage Coumadin. Need to check a basic metabolic profile tomorrow regarding initiation of oral Lasix. On exam today the patient is alert and in no acute distress. He denies any pain. He denies shortness of breath. He denies nausea or vomiting. He had a bowel movement today. He states he is urinating okay. Chest is clear to auscultation. Cardiovascular reveals an irregularly irregular rhythm with a normal rate. Abdomen is soft and nontender. Extremities reveal trace to +1 edema. Neurologic reveals that he is slow to answer and has cogwheeling in the upper extremities. Greater than 30 minutes of time was spent on the dismissal day. Problems: (1) Sepsis Status: Resolved Assessment & Plan: Severe sepsis secondary to HCAP; blood cultures drawn and pending at admission (2) Pneumonia Status: Acute Assessment & Plan: RUL/RLL infiltrate as well, c/w aspiration (3) Parkinsonian tremor Assessment & Plan: Subacute vs EPS (4) Bursitis of right knee Assessment & Plan: Subacute per patient history (5) Alzheimer's dementia without behavioral disturbance Status: Chronic Assessment & Plan: Patient's daughter/DPOA denies history dementia however on medications for dementia; history of behavioral abnormalities/hospitalizations in [place] (6) Hypertension Status: Chronic (7) ASHD (arteriosclerotic heart disease) Status: Chronic (8) Dysphagia, oropharyngeal Onset Date: ~ 10/2016 Status: Chronic (9) Schizophrenia, unspecified Status: Chronic Assessment & Plan: Onset of hallucinations within the past year-several psychiatric hospitalizations per patient's daughter (10) Encephalopathy chronic Status: Chronic (11) GERD (gastroesophageal reflux disease) Status: Chronic Assessment & Plan: Aspiration PNA - (12) Hyperlipidemia Status: Chronic (13) Atrial fibrillation, chronic Status: Chronic Assessment & Plan: A. fib with RVR; on chronic warfarin anticoagulation, INR supratherapeutic on arrival (14) CKD (chronic kidney disease) Assessment & Plan: GFR 65 (15) Ambulatory dysfunction Assessment & Plan: Recent falls (16) Cardiomegaly Status: Chronic (17) Hypokalemia Status: Resolved (18) Hypernatremia Status: Resolved (19) Dehydration Status: Acute (20) Sinusitis DVT Prophylaxis: Coumadin Code Status Do Not Resuscitate Home Meds Active Scripts Clindamycin HCl (Clindamycin HCl) 300 Mg Capsule, 1 CAP PO TID for 5 Days, #15 CAP TAKE WITH A FULL GLASS OF WATER TO AVOID ESOPHAGEAL IRRITATION. Prov:TORRES MIJARES MD 11/20/16 Fluticasone Propionate (Fluticasone Prop 50 mcg/actuation Nasal [place]) 120 [place] /16 G [place], 1 SPRAY EA NOSTRIL DAILY, #1 ML Prov:TORRES MIJARES MD 11/20/16 Furosemide (Furosemide) 20 Mg Tablet, 20 MG PO , #60 TAB Prov:TORRES MIJARES MD 11/20/16 Acetaminophen (Tylenol) 325 Mg Tablet, 325-650 MG PO Q5H Y for DISCOMFORT, #30 TAB Prov:TORRES MIJARES MD 11/20/16 Carvedilol (Coreg) 25 Mg Tablet, 25 MG PO BIDWM, #60 TAB Prov:TORRES MIJARES MD 11/20/16 Ipratropium/Albuterol Sulfate (Iprat-Albut 0.5-3(2.5) mg/3 ml) 3 Ml Ampul.neb, 3 ML AEROSOL Q2HR Y for SHORTNESS OF AIR/WHEEZING, #1 BOX Prov:TORRES MIJARES MD 11/20/16 Ipratropium/Albuterol Sulfate (Iprat-Albut 0.5-3(2.5) mg/3 ml) 3 Ml Ampul.neb, 3 ML AEROSOL BID, #1 BOX Prov:TORRES MIJARES MD 11/20/16 Reported Medications Docusate Sodium (Docusate Sodium) 100 Mg Capsule, 100 MG PO DAILY 11/11/16 Cilostazol (Cilostazol) 50 Mg Tablet, 50 MG PO DAILY 11/11/16 Atorvastatin Calcium (Atorvastatin Calcium) 40 Mg Tablet, 40 MG PO HS 11/11/16 Aspirin (Aspirin) 81 Mg Tab.chew, 81 MG PO DAILY 11/11/16 Cholecalciferol (Vitamin D3) (Vitamin D) 1,000 Unit Tablet, 1000 UNIT PO DAILY 11/11/16 Vitamin B Complex (Vitamin B Complex) 1 Each Tablet, 1 TAB PO DAILY 11/11/16 Timolol Maleate (Timolol Maleate) 5 Ml Drops, 1 DROP OP BID 11/11/16 Potassium Chloride (Potassium Chloride) 20 Meq Tablet.er, 20 MEQ PO BID 11/11/16 Pantoprazole Sodium (Pantoprazole Sodium) 40 Mg Tablet.dr, 40 MG PO DAILY 11/11/16 Multivitamin (Multi-Day Vitamins) 1 Each Tablet, 1 TAB PO DAILY 11/11/16 Polyethylene Glycol 3350 (Miralax) 17 Gm Powd.pack, 17 G PO QOD 11/11/16 Magnesium Oxide (Magnesium Oxide) 400 Mg Tablet, 400 MG PO BID 11/11/16 Escitalopram Oxalate (Lexapro) 10 Mg Tablet, 10 MG PO DAILY 11/11/16 Latanoprost (Latanoprost) 2.5 Ml Drops, 1 DROP BOTH EYES HS 11/11/16 Dorzolamide HCl/Timolol Maleat (Cosopt Eye Drops) 10 Ml Drops, 1 DROP BOTH EYES DAILY 11/11/16 Discontinued Reported Medications Carvedilol (Carvedilol) 6.25 Mg Tablet, 6.25 MG PO BID BEST WITH FOOD. 11/11/16 Olanzapine (Olanzapine) 20 Mg Tablet, 20 MG PO DAILY 11/11/16 Donepezil HCl (Donepezil HCl) 23 Mg Tablet, 23 MG PO HS 11/11/16 Warfarin Sodium (Warfarin Sodium) 5 Mg Tablet, 5 MG PO HS 11/11/16 Warfarin Sodium (Warfarin Sodium) 1 Mg Tablet, 0.5 MG PO DAILY GIVE WITH 5MG TAB TO EQUAL 5.5MG DAILY 11/11/16 Acetaminophen (Acetaminophen) 325 Mg Tablet, 2 TAB PO Q6H Y for PAIN 11/11/16 Acetaminophen (Acetaminophen) 500 Mg Tablet, 500 MG PO Q4H Y for PAIN 11/11/16 Nystatin (Nystatin) 15 Applic/15 G Cr, 1 APPLIC TOP BID Y for PRN ORDERS 11/11/16 Furosemide (Furosemide) 40 Mg Tablet, 40 MG PO DAILY 11/11/16 Face to Face Encounter I met with patient on the day of dismissal and discussed follow up appointments , medications, and safety plan. Discharge Disposition Dismiss to [facility] unit in stable condition Copies To 1: ANIBAL WALSH MD; LIBBY PRICE MD, STEPHANIE L MD Nov 20, 2016 18:47 Procedures No known history of procedures. Encounters Encounter Location Arrival/Admit Date Discharge/Depart Date Attending Provider Discharged Inpatient [facility] 11/11/16 6:39pm 11/20/16 7:28pm TORRES MIJARES MD
[2016-11-20] MEDS ORDERED: HALOPERIDOL 5 MG/ML INJECTION IM PRN (22:00)
[2016-11-20] MEDS ORDERED: PRN ORDERS MC (22:00)
[2016-11-20] MEDS ORDERED: HALOPERIDOL 0.5 MG TABLET PO PRN (22:00)
[2016-11-20] MEDS ORDERED: LORAZEPAM 2 MG/ML INJECTION IM PRN (22:00)
[2016-11-20] MEDS: LORAZEPAM 0.5 MG TABLET PO PRN (22:35)
--- NOTE | 2016-11-20 23:12 | NUR ---
PRN Pt received Ativan 0.5mg @ 2245 for restlessness. Pt took medications crushed in pudding.
[2016-11-20 23:53] VITALS: Ht 180.3 cm; Wt 87.4 kg
--- NOTE | 2016-11-21 00:12 | NUR ---
PRN Follow up Pt is sleeping comfortably. No S/S of discomfort or restlessness at this time.
--- NOTE | 2016-11-21 00:32 | NUR ---
ADMISSION Pt is a 76 year old male admitted from [facility] unit at 1945 today. Pt was transported in by and 2 [facility] staff to [facility] room 190. Pt was dressed in hospital gown when admitted. Pt requires a sit to stand lift to transfer and is incontinent of B&B. Pt is oriented to person only and has a flat affect. 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 Pt has no visible wounds other than small scrapes and bruising on arms and legs and no complaints of pain upon admission. When patient is asked why he is here with us he simply states " I don't know why i am here". Pt responds to simple questions and redirects well. Report received from Luly SANCHEZ.
--- NOTE | 2016-11-21 01:43 | NUR ---
STATUS PT was cooperative with assessment, cares and medications. Pt took medications crushed in pudding and is able to take thin liquids but needs to be at 90 degrees. Pt has no complaints of pain or discomfort and no hallucinations have been witnessed. Pt was 1:1 for the first few hours of being on the unit due to poor safety awareness. Pt would continually try and get out of bed. Pt redirected well to get back into bed. Pt is a mechanical soft diet and regular liquids (supervised). Pt is incontinent and has a stage 2 pressure sore on his coccyx with a Mepilex dressing. Dressing is CDI. It was reported that there are issues within the family and that the of the patient has tried to present legal documents when the patient was not of sound mind. The daughter/DPOA has asked that the be restricted from visitation. Pt uses a sit to stand lift to transfer and is very SAMISH so speaking loudly and clearly is necessary. PT is currently in bed sleeping with side rails up x 2 and bed alarm activated.
--- NOTE | 2016-11-21 03:30 | NUR ---
Chart Check 24 hour chart check completed
[2016-11-21 04:24] VITALS: O2SAT 97
[2016-11-21] MEDS: ALBUTEROL/IPRATROPIUM INHAL. 2.5mg-0.5mg/3ml Neb. AEROSOL PRN (04:32)
--- NOTE | 2016-11-21 06:25 | NUR ---
Summary Pt slept 3.0 last night. He was very restless and required additional supervision throughout the shift due to him trying to get out of bed on a consistent basis. Pt has poor safety awareness and is a sit to stand transfer unable to bare weight for any length of time. Pt had incontinent void tonight resulting in bed change. Pt has had no S/S of pain or discomfort and received no additional PRN medications this shift. Pt has had no auditory or visual hallucinations witnessed this shift. Pt is currently in bed sleeping with side rails up x2 and bed alarm activated.
[2016-11-21 06:57] LABS: HCT - HEMATOCRIT 37.5 % (41-53); HGB - HEMOGLOBIN 12.1 GM/DL (13.5-17.5); MEAN CORPUSCULAR HGB 27.9 UUG (26-34); MEAN CORPUSCULAR HGB CONC(MCHC 32.3 GM/DL (31-37); MEAN CORPUSCULAR VOLUME 86.4 UM3 (80-100); MEAN PLATELET VOLUME 10.1 UM3 (9.4-12.4); RED BLOOD COUNT 4.34 M/MM3 (4.50-5.90); WBC - WHITE BLOOD COUNT 13.7 T/MM3 (4.5-11.0)
[2016-11-21 07:08] LABS: ANION GAP 10 MEQ/L (5-15); BUN/CREATININE RATIO 33 RATIO (6-26); CALCIUM 9.3 MG/DL (8.4-10.2); CHLORIDE 104 MEQ/L (98-107); CO2 - CARBON DIOXIDE 29 MEQ/L (22-30); CREATININE 0.9 MG/DL (0.8-1.5); GLOMERULAR FILTRATION RATE 82; GLUCOSE 109 MG/DL (75-110); POTASSIUM 3.5 MEQ/L (3.6-5); SODIUM 143 MEQ/L (134-144)
[2016-11-21 07:18] LABS: INR 1.94 (0.76-1.04); PROTHROMBIN TIME 21.1 SEC (9.31-12.49)
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
[2016-11-21 08:02] LABS: EOSINOPHILS # (MANUAL) 0.1 T/MM3 (0-0.5); LYMPHOCYTES # (MANUAL) 0.5 T/MM3 (1-4.8); MONOCYTES # (MANUAL) 0.7 T/MM3 (0-0.8); NEUTROPHILS #(MANUAL)-ABSOLUTE 12.3 T/MM3 (1.8-7.7); TOTAL CELLS COUNTED 100 %
[2016-11-21 08:03] LABS: BURR CELLS 1+; HELMET CELLS 1+
[2016-11-21 08:04] LABS: ANISOCYTOSIS 2+; OVALOCYTES 1+
[2016-11-21 08:22] LABS: PHOSPHORUS 2.4 MG/DL (2.5-4.5)
--- NOTE | 2016-11-21 09:33 | NUR ---
COUMADIN CONSULT (Recurring): Today's INR = 1.94. Will give Warfarin 2mg today. Will continue to monitor & make adjustments accordingly. Thank you.
[2016-11-21] MEDS: CILOSTAZOL 50 MG TABLET PO SCH (09:38)
[2016-11-21] MEDS: PANTOPRAZOLE 40 MG TABLET PO SCH (09:38)
[2016-11-21] MEDS: ASPIRIN 81 MG CHEWABLE TABLET PO SCH (09:38)
[2016-11-21] MEDS: MAGNESIUM OXIDE 400 MG TABLET PO SCH ×2 (09:38→18:53)
[2016-11-21] MEDS: ESCITALOPRAM 10 MG TABLET PO SCH (09:38)
[2016-11-21] MEDS: CLINDAMYCIN 300 MG CAPSULE PO SCH ×3 (09:39→18:53)
[2016-11-21] MEDS: POTASSIUM CHLORIDE 20 MEQ TABLET PO SCH ×2 (09:39→17:20)
[2016-11-21] MEDS: FUROSEMIDE 20 MG TABLET PO SCH ×2 (09:39→17:19)
[2016-11-21] MEDS: FLUTICASONE NASAL SPRAY 50 MCG EA NOSTRIL SCH (09:39)
[2016-11-21] MEDS: POLYETHYL.GLYCOL 3350 PACKET 17gm PO SCH (09:39)
[2016-11-21 09:51] VITALS: BP 162/98; PULSE 101; RESP 20; O2SAT 96
--- NOTE | 2016-11-21 09:59 | HPPDOC ---
PAULETTE PAEZ V FEATHER EDGER 11/21/16 0925: HPI - Adult Date DATE: 11/21/16 TIME: 09:20 General Chief Complaint: Dementia, schizophrenia History of Present Illness Patient is a 76-year-old male who is well known to the hospitalist services as he was recently admitted acutely with sepsis and pneumonia. He was medically treated and improved with antibiotic therapy. Given his known history of dementia and schizophrenia with hallucinations further psychiatric evaluation and medication recommendations is needed. Patient was screened and [facility] for further inpatient evaluation and treatment. Did review this morning laboratory studies white count 13.7, hemoglobin 12.1, hematocrit 37.5, platelet count 331, neutrophils 90%. Sodium is 143, potassium 3.5, BUN 30 , creatinine 0.9, glucose 109. Hemoglobin A1c 5.8. Lipid panel, B12 and folate are pending. Last reported. Vital signs temperature 97.6, pulse 95, respiration rate 16, blood pressure 126/92, room air saturations 96%. New is seen this morning on initial examination. He is alert, and denies having any discomfort upon examination. Since staff is using a lift to get patient up out of the bed. 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 Current Medications Home Meds Active Scripts Clindamycin HCl (Clindamycin HCl) 300 Mg Capsule, 1 CAP PO TID for 5 Days, #15 CAP TAKE WITH A FULL GLASS OF WATER TO AVOID ESOPHAGEAL IRRITATION. Prov:TORRES MIJARES MD 11/20/16 Fluticasone Propionate (Fluticasone Prop 50 mcg/actuation Nasal [place]) 120 [place] /16 G [place], 1 SPRAY EA NOSTRIL DAILY, #1 ML Prov:TORRES MIJARES MD 11/20/16 Furosemide (Furosemide) 20 Mg Tablet, 20 MG PO 08,14, #60 TAB Prov:TORRES MIJARES MD 11/20/16 Acetaminophen (Tylenol) 325 Mg Tablet, 325-650 MG PO Q5H Y for DISCOMFORT, #30 TAB Prov:TORRES MIJARES MD 11/20/16 Carvedilol (Coreg) 25 Mg Tablet, 25 MG PO BIDWM, #60 TAB Prov:TORRES MIJARES MD 11/20/16 Ipratropium/Albuterol Sulfate (Iprat-Albut 0.5-3(2.5) mg/3 ml) 3 Ml Ampul.neb, 3 ML AEROSOL Q2HR Y for SHORTNESS OF AIR/WHEEZING, #1 BOX Prov:TORRES MIJARES MD 11/20/16 Ipratropium/Albuterol Sulfate (Iprat-Albut 0.5-3(2.5) mg/3 ml) 3 Ml Ampul.neb, 3 ML AEROSOL BID, #1 BOX Prov:TORRES MIJARES MD 11/20/16 Reported Medications Docusate Sodium (Docusate Sodium) 100 Mg Capsule, 100 MG PO DAILY 11/11/16 Cilostazol (Cilostazol) 50 Mg Tablet, 50 MG PO DAILY 11/11/16 Atorvastatin Calcium (Atorvastatin Calcium) 40 Mg Tablet, 40 MG PO HS 11/11/16 Aspirin (Aspirin) 81 Mg Tab.chew, 81 MG PO DAILY 11/11/16 Cholecalciferol (Vitamin D3) (Vitamin D) 1,000 Unit Tablet, 1000 UNIT PO DAILY 11/11/16 Vitamin B Complex (Vitamin B Complex) 1 Each Tablet, 1 TAB PO DAILY 11/11/16 Timolol Maleate (Timolol Maleate) 5 Ml Drops, 1 DROP OP BID 11/11/16 Potassium Chloride (Potassium Chloride) 20 Meq Tablet.er, 20 MEQ PO BID 11/11/16 Pantoprazole Sodium (Pantoprazole Sodium) 40 Mg Tablet.dr, 40 MG PO DAILY 11/11/16 Multivitamin (Multi-Day Vitamins) 1 Each Tablet, 1 TAB PO DAILY 11/11/16 Polyethylene Glycol 3350 (Miralax) 17 Gm Powd.pack, 17 G PO QOD 11/11/16 Magnesium Oxide (Magnesium Oxide) 400 Mg Tablet, 400 MG PO BID 11/11/16 Escitalopram Oxalate (Lexapro) 10 Mg Tablet, 10 MG PO DAILY 11/11/16 Latanoprost (Latanoprost) 2.5 Ml Drops, 1 DROP BOTH EYES HS 11/11/16 Dorzolamide HCl/Timolol Maleat (Cosopt Eye Drops) 10 Ml Drops, 1 DROP BOTH EYES DAILY 11/11/16 Discontinued Reported Medications Carvedilol (Carvedilol) 6.25 Mg Tablet, 6.25 MG PO BID BEST WITH FOOD. 11/11/16 Olanzapine (Olanzapine) 20 Mg Tablet, 20 MG PO DAILY 11/11/16 Donepezil HCl (Donepezil HCl) 23 Mg Tablet, 23 MG PO HS 11/11/16 Warfarin Sodium (Warfarin Sodium) 5 Mg Tablet, 5 MG PO HS 11/11/16 Warfarin Sodium (Warfarin Sodium) 1 Mg Tablet, 0.5 MG PO DAILY GIVE WITH 5MG TAB TO EQUAL 5.5MG DAILY 11/11/16 Acetaminophen (Acetaminophen) 325 Mg Tablet, 2 TAB PO Q6H Y for PAIN 11/11/16 Acetaminophen (Acetaminophen) 500 Mg Tablet, 500 MG PO Q4H Y for PAIN 11/11/16 Nystatin (Nystatin) 15 Applic/15 G Cr, 1 APPLIC TOP BID Y for PRN ORDERS 11/11/16 Furosemide (Furosemide) 40 Mg Tablet, 40 MG PO DAILY 11/11/16 Allergies: Coded Allergies: No Known Allergies (Unverified , 11/12/16) Family History Family History: Unable to obtain from patient Social History Smoking Status: Unknown if ever smoked Does patient use chewing tobac: No Alcohol Intake: former alcohol drinker Marital Status: Housing: [facility] Advance Directives: Yes DNR, Yes DPOA for Healthcare Only Social History Comments Primary care provider, Dr. Walsh Review of Systems Unable to Obtain ROS Due to: clinical condition, dementia Comments Although patient states no pain accurate review of systems is unable to be obtained due to clinical condition in mentation Physical Exam General General Nourishment: well nourished, well developed Vital Signs Vital Signs Date Time Temp Pulse Resp B/P Pulse Ox O2 Delivery O2 Flow Rate FiO2 11/21/16 04:34 115 11/21/16 04:24 20 97 11/20/16 19:43 97.6 126/92 Room Air Height (Feet): 5 Height (Inches): 11.00 Eyes Brief: FOUND: EOMI, PERRL Respiratory Brief: FOUND: clear all sullivan, equal bilaterally Cardiovascular (brief) Cardiac Brief: FOUND: regular rate, regular rhythm Abdomen (brief) Abdominal Brief: FOUND: BS normo active x4, soft Integumentary (brief) Integumentary Brief: FOUND: dry, pink, warm Neurologic (brief) Neurological Brief: FOUND: cranial 2-12 intact Neurologic RN Documented GCS Eye Opening: Verbal: Motor: Total: Psychiatric (brief) FOUND: alert, attentive, normal affect Laboratory Laboratory Tests Test 11/21/16 06:15 White Blood Count 13.7T/MM3 Red Blood Count 4.34M/MM3 Hemoglobin 12.1GM/DL Hematocrit 37.5% Mean Corpuscular Volume 86.4UM3 Mean Corpuscular Hemoglobin 27.9UUG Mean Corpuscular Hemoglobin Concent 32.3GM/DL RDW Standard Deviation 53.3FL Platelet Count 331T/MM3 Mean Platelet Volume 10.1UM3 Immature Granulocyte % (Auto) % Neutrophils (%) (Auto) % Lymphocytes (%) (Auto) % Monocytes (%) (Auto) % Eosinophils (%) (Auto) % Basophils (%) (Auto) % Absolute Immature Granulocyte (auto T/MM3 Absolute Neutrophils (auto) T/MM3 Absolute Lymphocytes (auto) T/MM3 Absolute Monocytes (auto) T/MM3 Absolute Eosinophils (auto) T/MM3 Absolute Basophils (auto) T/MM3 Neutrophils % (Manual) 90.0% Lymphocytes % (Manual) 4.0% Monocytes % (Manual) 5.0% Eosinophils % (Manual) 1.0% Absolute Neutrophils (Manual) 12.3T/MM3 Lymphocytes # (Manual) 0.5T/MM3 Monocytes # (Manual) 0.7T/MM3 Eosinophils # (Manual) 0.1T/MM3 Anisocytosis 2+ Ovalocytes 1+ Helmet Cells 1+ Hailee Cells 1+ Red Cell Morphology Comment Abnormal Prothromb Time International Ratio 1.94 Turbidity < 20 Sodium Level 143MEQ/L Potassium Level 3.5MEQ/L Chloride Level 104MEQ/L Carbon Dioxide Level 29MEQ/L Anion Gap 10MEQ/L Blood Urea Nitrogen 30.0MG/DL Creatinine 0.9MG/DL Glomerular Filtration Rate Calc 82 BUN/Creatinine Ratio 33RATIO Glucose Level 109MG/DL Hemoglobin A1c 5.8% Calculated Osmolality 282MOSM/KG Calcium Level 9.3MG/DL Phosphorus Level 2.4MG/DL Icterus Index < 2 Albumin 3.0G/DL Chemistry Specimen Hemolysis < 15 Assessment & Plan Problems: (1) Schizophrenia, unspecified Status: Chronic (2) Alzheimer's dementia without behavioral disturbance Status: Chronic (3) Ambulatory dysfunction Status: Chronic (4) Hypertension Status: Chronic (5) ASHD (arteriosclerotic heart disease) Status: Chronic (6) Hyperlipidemia Status: Chronic (7) GERD (gastroesophageal reflux disease) Status: Chronic (8) Atrial fibrillation, chronic Status: Chronic (9) CKD (chronic kidney disease) Status: Chronic (10) Parkinsonian tremor (11) Cardiomegaly Status: Chronic (12) Alcohol use disorder, severe, in sustained remission, in controlled environment Status: Chronic Plan/Intensity of Service Agree with admission to [facility] for ongoing psychiatric care and treatment recommendations It is reported that patient has have a significant cognitive decline over the past 6 months. It is unclear regarding the length at which patient has had tremor/rigidity. He did have psychosis and was prescribed Zyprexa initially. However, this has been held since admission to the hospital. PT was consulted given that patient is requiring a lift for transfers. It is unclear if this is patient's baseline. Noted to have a cough as well as increase in WBC count today to 13.7 from 8.9 yesterday. Will recheck a Chest Xray today. Will also recheck UA to rule out infection Continues on Clindamycin antibiotic for treatment of Pneumonia. End date for 2 week course. INR today is 1.94, Continue with Coumadin daily via pharmacy dosing/management. Will give one time dose of oral potassium supplementation given mild hypokalemia of 3.5 Continue with Coreg 25mg BID for rate control Recheck CBC and BMP tomorrow DVT Prophylaxis: Coumadin Code Status Do Not Resuscitate Hospital Course Summary Disclaimer The hospital course summary below is not to be considered part of the above Progress Note. Hospital Course Summary 11/21/16 Agree with admission to [facility] for ongoing psychiatric care and treatment recommendations It is reported that patient has have a significant cognitive decline over the past 6 months. It is unclear regarding the length at which patient has had tremor/rigidity. He did have psychosis and was prescribed Zyprexa initially. However, this has been held since admission to the hospital. PT was consulted given that patient is requiring a lift for transfers. It is unclear if this is patient's baseline. Noted to have a cough as well as increase in WBC count today to 13.7 from 8.9 yesterday. Will recheck a Chest Xray today. Will also recheck UA to rule out infection Continues on Clindamycin antibiotic for treatment of Pneumonia. End date for 2 week course. INR today is 1.94, Continue with Coumadin daily via pharmacy dosing/management. Will give one time dose of oral potassium supplementation given mild hypokalemia of 3.5 Continue with Coreg 25mg BID for rate control Recheck CBC and BMP tomorrow TORRES MIJARES MD 11/21/16 2019: Past Medical History Current Medications Home Meds Active Scripts Clindamycin HCl (Clindamycin HCl) 300 Mg Capsule, 1 CAP PO TID for 5 Days, #15 CAP TAKE WITH A FULL GLASS OF WATER TO AVOID ESOPHAGEAL IRRITATION. Prov:TORRES MIJARES MD 11/20/16 Fluticasone Propionate (Fluticasone Prop 50 mcg/actuation Nasal [place]) 120 [place] /16 G [place], 1 SPRAY EA NOSTRIL DAILY, #1 ML Prov:TORRES MIJARES MD 11/20/16 Furosemide (Furosemide) 20 Mg Tablet, 20 MG PO 08,14, #60 TAB Prov:TORRES MIJARES MD 11/20/16 Acetaminophen (Tylenol) 325 Mg Tablet, 325-650 MG PO Q5H Y for DISCOMFORT, #30 TAB Prov:TORRES MIJARES MD 11/20/16 Carvedilol (Coreg) 25 Mg Tablet, 25 MG PO BIDWM, #60 TAB Prov:TORRES MIJARES MD 11/20/16 Ipratropium/Albuterol Sulfate (Iprat-Albut 0.5-3(2.5) mg/3 ml) 3 Ml Ampul.neb, 3 ML AEROSOL Q2HR Y for SHORTNESS OF AIR/WHEEZING, #1 BOX Prov:TORRES MIJARES MD 11/20/16 Ipratropium/Albuterol Sulfate (Iprat-Albut 0.5-3(2.5) mg/3 ml) 3 Ml Ampul.neb, 3 ML AEROSOL BID, #1 BOX Prov:TORRES MIJARES MD 11/20/16 Reported Medications Docusate Sodium (Docusate Sodium) 100 Mg Capsule, 100 MG PO DAILY 11/11/16 Cilostazol (Cilostazol) 50 Mg Tablet, 50 MG PO DAILY 11/11/16 Atorvastatin Calcium (Atorvastatin Calcium) 40 Mg Tablet, 40 MG PO HS 11/11/16 Aspirin (Aspirin) 81 Mg Tab.chew, 81 MG PO DAILY 11/11/16 Cholecalciferol (Vitamin D3) (Vitamin D) 1,000 Unit Tablet, 1000 UNIT PO DAILY 11/11/16 Vitamin B Complex (Vitamin B Complex) 1 Each Tablet, 1 TAB PO DAILY 11/11/16 Timolol Maleate (Timolol Maleate) 5 Ml Drops, 1 DROP OP BID 11/11/16 Potassium Chloride (Potassium Chloride) 20 Meq Tablet.er, 20 MEQ PO BID 11/11/16 Pantoprazole Sodium (Pantoprazole Sodium) 40 Mg Tablet.dr, 40 MG PO DAILY 11/11/16 Multivitamin (Multi-Day Vitamins) 1 Each Tablet, 1 TAB PO DAILY 11/11/16 Polyethylene Glycol 3350 (Miralax) 17 Gm Powd.pack, 17 G PO QOD 11/11/16 Magnesium Oxide (Magnesium Oxide) 400 Mg Tablet, 400 MG PO BID 11/11/16 Escitalopram Oxalate (Lexapro) 10 Mg Tablet, 10 MG PO DAILY 11/11/16 Latanoprost (Latanoprost) 2.5 Ml Drops, 1 DROP BOTH EYES HS 11/11/16 Dorzolamide HCl/Timolol Maleat (Cosopt Eye Drops) 10 Ml Drops, 1 DROP BOTH EYES DAILY 11/11/16 Discontinued Reported Medications Carvedilol (Carvedilol) 6.25 Mg Tablet, 6.25 MG PO BID BEST WITH FOOD. 11/11/16 Olanzapine (Olanzapine) 20 Mg Tablet, 20 MG PO DAILY 11/11/16 Donepezil HCl (Donepezil HCl) 23 Mg Tablet, 23 MG PO HS 11/11/16 Warfarin Sodium (Warfarin Sodium) 5 Mg Tablet, 5 MG PO HS 11/11/16 Warfarin Sodium (Warfarin Sodium) 1 Mg Tablet, 0.5 MG PO DAILY GIVE WITH 5MG TAB TO EQUAL 5.5MG DAILY 11/11/16 Acetaminophen (Acetaminophen) 325 Mg Tablet, 2 TAB PO Q6H Y for PAIN 11/11/16 Acetaminophen (Acetaminophen) 500 Mg Tablet, 500 MG PO Q4H Y for PAIN 11/11/16 Nystatin (Nystatin) 15 Applic/15 G Cr, 1 APPLIC TOP BID Y for PRN ORDERS 11/11/16 Furosemide (Furosemide) 40 Mg Tablet, 40 MG PO DAILY 11/11/16 Allergies: Coded Allergies: No Known Allergies (Unverified , 11/12/16) Assessment & Plan Assessment 11/21/2016-I reviewed this chart, the patient history, and the FEATHER EDGER's/PA's documented findings as above. We discussed and formulated the assessment and plan as above with the additions below.-Dr. Mijares Patient was seen this evening lying in bed. He was awake and slowly "bicycling" his legs pretty continuously. He complained of bilateral knee pain and arm pains. He was confused and mildly agitated. I have not seen him confused like this before but have not seen him in the evenings before either. Physically he appears in no distress. HEENT reveals mouth to be moist, neck is supple. Chest is clear to auscultation anteriorly. Cardiovascular reveals a borderline tachycardic rate with an irregularly irregular rhythm. Abdomen is soft and nontender. Extremities reveal +1 pretibial edema. Bilateral knees reveal no edema, erythema or increased warmth. Skin is warm and dry and without rashes. Treatment of encephalopathy/agitation per psychiatry. A. fib with mild RVR-increased heart rate may be secondary to his continuous movement. Will watch trend and heart rate and may require change in medication and/or cardiology consultation with Dr. Estrada who saw the patient when he was in the acute inpatient setting. Elevated white count with recent sinusitis and aspiration pneumonia. No fevers. No bandemia. Recheck CBC with differential tomorrow. Lasix was restarted for CHF, fluid retention. Chest x-ray today showed small pleural effusions and mild pulmonary edema. May need to increase Lasix tomorrow. We'll check a renal panel and magnesium tomorrow. I did ask the nurse to give him Tylenol for his knee pains. PAULETTE PAEZ APRN Nov 21, 2016 09:25 TORRES MIJARES MD Nov 21, 2016 20:19
[2016-11-21] MEDS ORDERED: POTASSIUM CHLORIDE 20 MEQ TABLET PO ONE (10:00)
--- NOTE | 2016-11-21 10:00 | NUR ---
MOTION STUDY TECHNICIAN--AM GROUP Althought arriving late, pt. was present and passively engaged in psychoeducational group facilitated by [facility]. Pt. is Ox1 and remains calm throughout group. He does not appear to be aware of the content of the group. Topic was on importance of acts of kindness and how it can help both physically and mentally. Stressed that benefits can be reciprocal and most are free and able to be completed in any environment. Patients identified ways they can show kindness. One pt. identified smiling and saying "hello." Other acts included being polite, giving a compliment or offering help to another. Pt. sat passive during the group. He did not contribute any ideas. Finished group by listening to a variety of songs. Pt. was emotionally blank and did not show any recognition to songs--hearing impairment may have contributed.
[2016-11-21] MEDS: CARVEDILOL 25 MG TABLET PO SCH ×2 (11:15→17:20)
[2016-11-21] MEDS ORDERED: WARFARIN 2 MG TABLET PO SCH (12:00)
--- NOTE | 2016-11-21 12:02 | DI ---
Indication: ITS.REASON: coughing, Leukocytosis PROCEDURE: CHEST 1 VIEW: Encounter: Initial Comparison: November 18, 2016 Findings: Persistent small bilateral pleural effusions. Hypoinflation. Fluid tracking along the fissures on the right. No pneumothorax. Bilateral lower lobe airspace opacities are similar. Heart size and mediastinal contours are stable. Pulmonary vascularity appears more congested than the prior. Impression: Small pleural effusions and mild pulmonary edema. .
--- NOTE | 2016-11-21 12:04 | NUR ---
status pt is alert and oriented to self. he knows that he came from [place] but doesn't know how he got here. pleasant and cooperative with cares. took medications crushed in pudding with no issues. fed self breakfast and lunch. able to transfer with assist of 2 from wheelchair to recliner and then back to w/c. denies any visual or auditory hallucinations.
--- NOTE | 2016-11-21 14:53 | NUR ---
CRICKET COACH--PSH/ADVANCE DIRECTIVE [facility] made phone call to pt's daughter/DPOA-HC (Ana Mariano) to gather information for psychosocial history (PSH). Pt. is a DNR. Pt. was born in [place]. He and his first adopted a daughter, Ana, who lives in [place]. Daughter reports it has been two years since she last saw her father prior to this hospitalization. Pt. has been 3-4 times. He remarried his current , Lou, who lives in [place], [place]. Pt's has refused to provide any financial support to pay for pt's LTC expenses. The daughter and pt's sisters have been working with an network admin and filed for divorce on behalf of the patient so he can get half of their assets to help pay for his care. The DPOA does not want to forbid the pt's (Lou) from visiting him while he is on [facility] but she does not want pt. to be left alone in his room with his and/or her network admin. Just recently the came to visit pt. while he was on medical unit. She attempted to get pt. to sign a new DPOA form but was stopped by a physician. The daughter also asked that this SW find out whether or not hospital filling room operator has been by to visit the patient. She had sent email to Isamar Fernandez. Pt. has a high school diploma. 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 Daughter says discharge plan is for pt. to return to [facility] when stable. Once the divorce issue is resolved, she would like to move him to [place] where he will be close to family. [facility] reviewed contents of proposed [place] plan. Daughter had no additional information to add. She gave permission to sign her name on the form. [facility] made phone all to Isamar Fernandez. She had made arrangements for [facility] filling room operator to visit pt. last night. Addendum: 11/21/16 at 1502 by ROXANA JACOME Amended: Links added.
--- NOTE | 2016-11-21 15:35 | NUR ---
KOREY NAIR SPOKE WITH PT DAUGHTER. CM EXPLAINED ROLE AND PROVIDED CONTACT INFORMATION. PT WILL RETURN TO [facility] AT TIME OF D/C FROM [facility]. PT DAUGHTER IS AWARE TO CONTACT CM IF NEEDS ARISE. KOREY SPOKE WITH JESUS FROM [facility] AND HE IS AWARE OF PT STATUS. JESUS IS AWARE TO CONTACT CM IF NEEDS ARISE.
[2016-11-21 16:00] VITALS: BP 157/97; PULSE 130; RESP 20; TEMP 97.4; O2SAT 92
[2016-11-21] MEDS: LORAZEPAM 0.5 MG TABLET PO PRN (18:52)
[2016-11-21] MEDS: TIMOLOL 0.5% EYE DROPS 5ml BOTH EYES SCH (18:53)
[2016-11-21] MEDS: LATANOPROST 0.005% EYE DROPS 2.5 ML BOTTLE BOTH EYES SCH (18:53)
[2016-11-21] MEDS: ATORVASTATIN 40 MG TABLET PO SCH (18:53)
[2016-11-21] MEDS ORDERED: QUETIAPINE 25 MG TABLET PO PRN (19:00)
--- NOTE | 2016-11-21 19:01 | NUR ---
Pt with extreme agitation. Trying to get out of bed, but does not want to set up. He was given many alternative tasks to avoid medication ie music, talking with staff, up to chair and in day room. All without any help or decrease in agitation. Pt was given Haldol and Ativan prn dose. See Mar.
[2016-11-21 20:39] VITALS: BP 151/72; PULSE 96; RESP 22; TEMP 98.1; O2SAT 98
[2016-11-21] MEDS ORDERED: QUETIAPINE 25 MG TABLET PO SCH (21:00)
--- NOTE | 2016-11-21 21:58 | GENPN ---
[facility] Subjective Date DATE: 11/21/16 TIME: 21:39 Subjective/Severity of Illness Medications Current Medications Medications (Trade) Dose Ordered Sig/Lilly Start Time Stop Time Status Last Admin Dose Admin Acetaminophen (Tylenol Regular Strength) 1-2 tabs PRN for pain Q5H PRN 11/20/16 22:00 Aspirin (ASA) 81 mg DAILY 11/21/16 09:00 11/21/16 09:38 81 MG Atorvastatin Calcium (LIPITOR 40 mg) 40 mg HS 11/21/16 21:00 11/21/16 18:53 40 MG Cilostazol (Pletal 50 Mg) 50 mg ACB30 11/21/16 07:30 11/21/16 09:38 50 MG Clindamycin HCl (Cleocin) 300 mg TID 11/21/16 09:00 11/25/16 21:01 11/21/16 18:53 300 MG Escitalopram Oxalate (LEXAPRO 10mg) 10 mg DAILY 11/21/16 09:00 11/21/16 09:38 10 MG Fluticasone Propionate (Flonase) 1 spray DAILY 11/21/16 09:00 11/21/16 09:39 1 SPRAY Furosemide (Lasix) 20 mg 08,14 11/21/16 08:00 11/21/16 17:19 20 MG Albuterol/ Ipratropium (Duoneb) 3 ml BID PRN 11/20/16 22:00 11/21/16 04:32 3 ML Albuterol/ Ipratropium (Duoneb) 3 ml Q2HR PRN 11/20/16 22:00 Latanoprost (Xalatan) 1 drop HS 11/21/16 21:00 11/21/16 18:53 1 DROP Magnesium Oxide (Magox) 400 mg BID 11/21/16 09:00 11/21/16 18:53 400 MG Pantoprazole Sodium (Protonix) 40 mg DAILY 11/21/16 09:00 11/21/16 09:38 40 MG Polyethylene Glycol (Miralax) 17 g Q2D@09 11/21/16 09:00 11/21/16 09:39 17 G Potassium Chloride (Kdur) 20 meq BIDWM 11/21/16 08:00 11/21/16 17:20 20 MEQ Miscellaneous Medication (May use PRN orders) 1 PRN PRN 11/20/16 22:00 Haloperidol (Haldol) 0.5 mg Q6H PRN 11/20/16 22:00 11/21/16 19:02 DC 11/21/16 18:52 0.5 MG Lorazepam (Ativan) 0.5 mg Q6H PRN 11/20/16 22:00 11/21/16 18:52 0.5 MG Lorazepam (Ativan) 0.5 mg Q6H PRN 11/20/16 22:00 Haloperidol Lactate (Haldol 5 Mg/ml Inj) 0.5 mg Q6H PRN 11/20/16 22:00 11/21/16 19:02 DC Warfarin Sodium (Coumadin Protocol) NOTE 11/21/16 07:00 Warfarin Sodium (COUMADIN 2 mg) 2 mg NOON 11/21/16 12:00 11/21/16 12:30 DC 11/21/16 11:16 2 MG Carvedilol (Coreg) 25 mg BIDWM 11/21/16 10:45 11/21/16 17:20 25 MG Dorzolamide/ Timolol (Cosopt Ocumeter Plus) 1 drop DAILY 11/22/16 09:00 Timolol Hemihydrate (Timoptic 0.5% Eye Drops) 1 drop BID 11/21/16 21:00 11/21/16 18:53 1 DROP Quetiapine Fumarate (Seroquel) 25 mg Q6HR PRN 11/21/16 19:00 UNV Quetiapine Fumarate (Seroquel) 12.5 mg HS 11/21/16 21:00 11/22/16 09:00 UNV 11/21/16 19:07 12.5 MG Subjective Patient seen and chart reviewed. Patient was transferred yesterday for hallucinations and restlessness. He was said to have received Ativan 0.5mg and Haloperidol 0.5mg at about 2245 last night. However, he was co-operative this morning. 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 Patient has history of alcohol use disorder in the past, but has not used alcohol for a long time. Patient will be started 12.5mg q hs tonight to target restlessness. Patient is also on Lexapro 10mg daily Time of Service: 16:30 Start Time: 16:30 Stop Time: 16:45 Care >50% of this visit spent in counseling/coordination care. [facility] Exam Vitals Vital Signs Date Time Temp Pulse Resp B/P Pulse Ox O2 Delivery O2 Flow Rate FiO2 11/21/16 20:39 98.1 96 22 151/72 98 Room Air Physical examination performed by the hospitalist. Height (Feet): 5 Height (Inches): 11.00 Mental Status Exam Muscle Strength/Tone: Weak Dressing: Neat Grooming: Fair Attitude: Tense Motor Activity: Agitation, Restless Eye Contact: Fair Speech: Slowed Volume: Normal Rhythm: Mumbled, Paucity of Language Sensory: Alert Orientation: Oriented to person Mood: Anxious Affect: Exaggerated Rate of Thoughts: Delayed Thought Organization: [place] Associations: Loose-associations Abstract Reasoning: Impaired, concrete Computation: Poor Computation Thought Content: Delusions Current Hallucinations: Auditory Attention Span/Concentration: Distractable Language: Naming Impaired Fund of Knowledge: Poor fund of knowledge Memory: Poor-immediate, Poor-recent Suicidal Ideation: None Homicidal Ideation: None Insight: Poor Judgment: Poor Impulse Control: Poor Laboratory Tests Test 11/21/16 06:15 White Blood Count 13.7T/MM3 Red Blood Count 4.34M/MM3 Hemoglobin 12.1GM/DL Hematocrit 37.5% Mean Corpuscular Volume 86.4UM3 Mean Corpuscular Hemoglobin 27.9UUG Mean Corpuscular Hemoglobin Concent 32.3GM/DL RDW Standard Deviation 53.3FL Platelet Count 331T/MM3 Mean Platelet Volume 10.1UM3 Immature Granulocyte % (Auto) % Neutrophils (%) (Auto) % Lymphocytes (%) (Auto) % Monocytes (%) (Auto) % Eosinophils (%) (Auto) % Basophils (%) (Auto) % Absolute Immature Granulocyte (auto T/MM3 Absolute Neutrophils (auto) T/MM3 Absolute Lymphocytes (auto) T/MM3 Absolute Monocytes (auto) T/MM3 Absolute Eosinophils (auto) T/MM3 Absolute Basophils (auto) T/MM3 Neutrophils % (Manual) 90.0% Lymphocytes % (Manual) 4.0% Monocytes % (Manual) 5.0% Eosinophils % (Manual) 1.0% Absolute Neutrophils (Manual) 12.3T/MM3 Lymphocytes # (Manual) 0.5T/MM3 Monocytes # (Manual) 0.7T/MM3 Eosinophils # (Manual) 0.1T/MM3 Anisocytosis 2+ Ovalocytes 1+ Helmet Cells 1+ [place] Cells 1+ Red Cell Morphology Comment Abnormal Prothromb Time International Ratio 1.94 Turbidity < 20 Sodium Level 143MEQ/L Potassium Level 3.5MEQ/L Chloride Level 104MEQ/L Carbon Dioxide Level 29MEQ/L Anion Gap 10MEQ/L Blood Urea Nitrogen 30.0MG/DL Creatinine 0.9MG/DL Glomerular Filtration Rate Calc 82 BUN/Creatinine Ratio 33RATIO Glucose Level 109MG/DL Hemoglobin A1c 5.8% Calculated Osmolality 282MOSM/KG Calcium Level 9.3MG/DL Phosphorus Level 2.4MG/DL Icterus Index < 2 Albumin 3.0G/DL Triglycerides Level Pending Cholesterol Level Pending LDL Cholesterol, Calculated Pending VLDL Cholesterol Pending HDL Cholesterol Direct Pending Cholesterol/HDL Ratio Pending Vitamin B12 Level Pending Folate Pending Chemistry Specimen Hemolysis < 15 Assessment and Plan (1) 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 Plan: -Admit to [facility] unit. Obtain Vitamin B12 and folate. Observe patient in the unit. 11/21/16: Seroquel 12.5mg po qhs. Thiamine 100mg TID. LIBBY PRICE MD Nov 21, 2016 21:52
[2016-11-21 22:10] VITALS: PULSE 96
--- NOTE | 2016-11-22 00:16 | NUR ---
Mid shift status Pt was lying in bed at beginning of shift. Pt is fatigued and recently received PRN Ativan/Haldol prior to coming on shift. Pt is [place]. Woke only for a short time during assessment. Alert to person. Up with sit to stand lift. No hallucinations displayed at this time. Pt has been sleeping since coming on shift. No delusions present at this time. Compliant with HS meds, taking crushed in pudding. Currently sleeping. Bed rails up x 3 and alarm on. Will continue to monitor
[2016-11-22 01:00] LABS: LDL CHOLESTEROL,CALCULATED 66.6 (66-159); RISK FACTOR 4.1 RATIO (0-5.0); VLDL CHOLESTEROL 33.4 MG/DL (0-28)
--- NOTE | 2016-11-22 02:38 | NUR ---
PRN Pt increasingly restless, attempting to get out of bed. Additional staff needed to sit with pt for safety precautions as pt is a sit to stand lift. PRN Seroquel 25 mg given at 0235. Will continue to monitor
--- NOTE | 2016-11-22 03:31 | NUR ---
Chart Check 24 hour chart check completed
[2016-11-22 05:40] LABS: HGB - HEMOGLOBIN 11.6 GM/DL (13.5-17.5); MEAN CORPUSCULAR HGB CONC(MCHC 32.2 GM/DL (31-37); MEAN PLATELET VOLUME 10.3 UM3 (9.4-12.4); RED BLOOD COUNT 4.14 M/MM3 (4.50-5.90); WBC - WHITE BLOOD COUNT 12.2 T/MM3 (4.5-11.0)
[2016-11-22 05:41] LABS: INR 1.83 (0.76-1.04); PROTHROMBIN TIME 19.9 SEC (9.31-12.49)
[2016-11-22 05:50] LABS: ALBUMIN 2.7 G/DL (3.5-5.0); ANION GAP 6 MEQ/L (5-15); BUN/CREATININE RATIO 30 RATIO (6-26); CALCIUM 9.2 MG/DL (8.4-10.2); CHLORIDE 104 MEQ/L (98-107); CO2 - CARBON DIOXIDE 30 MEQ/L (22-30); CREATININE 0.9 MG/DL (0.8-1.5); GLOMERULAR FILTRATION RATE 82; GLUCOSE 119 MG/DL (75-110); MAGNESIUM 1.6 MG/DL (1.6-2.3); PHOSPHORUS 2.2 MG/DL (2.5-4.5); POTASSIUM 3.6 MEQ/L (3.6-5); SODIUM 140 MEQ/L (134-144)
[2016-11-22 06:03] LABS: ANISOCYTOSIS 1+; EOSINOPHILS # (MANUAL) 0.1 T/MM3 (0-0.5); LYMPHOCYTES # (MANUAL) 0.4 T/MM3 (1-4.8); MONOCYTES # (MANUAL) 0.2 T/MM3 (0-0.8); NEUTROPHILS #(MANUAL)-ABSOLUTE 11.5 T/MM3 (1.8-7.7); TOTAL CELLS COUNTED 100 %
--- NOTE | 2016-11-22 06:20 | NUR ---
Summary: Patient slept 8 hours this shift. Was incontinent once throughout the night. Patient is anxious when awake with a lot of leg movement and pulling covers off. Patient was given Seroquel 25mg at 0230. Patient slept well after given. He is able to report that he is [place] in [facility]. Patient does not display any signs and denies any hallucinations. Does not report delusions. Patient denies any pain. He is deaf in left ear and can only hear partially in right ear. Pleasant when awake.
--- NOTE | 2016-11-22 07:56 | NUR ---
WARFARIN CONSULT S: 76 y/o M on warfarin for afib; home dose is 5.5 mg daily. Goal INR 2-3. O: Date INR Warfarin Dose 11/12 5.68 HELD 11/13 5.72 HELD 11/14 5.07 HELD 11/15 5.38 HELD...VITAMIN K 1 MG PO GIVEN 11/16 3.39 HELD 11/17 1.55 3 mg 11/18 1.55 4 mg 11/19 2.31 1 mg 11/20 1.97 2 mg 11/21 1.94 2 mg 11/22 1.83 PLAN: 3 mg A/P: INR subtherapeutic. No significant drug-drug interactions with warfarin. Will order warfarin 3 mg PO today. Will continue to monitor & make adjustments accordingly. Thank you for the consult. Donna Ramos, PharmD, BCPS
[2016-11-22 08:00] VITALS: BP 156/106; PULSE 87; RESP 22; TEMP 97.4; O2SAT 96
--- NOTE | 2016-11-22 10:00 | NUR ---
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 was in his room in bed and did not participate in psychoeducational group facilitated by [facility].
[2016-11-22 10:43] VITALS: PULSE 96
[2016-11-22] MEDS ORDERED: WARFARIN 3 MG TABLET PO ONE (12:00)
--- NOTE | 2016-11-22 13:01 | PNPDOC ---
PAULETTE PAEZ V CHURN DRILLER 11/22/16 1258: Subjective Date DATE: 11/22/16 TIME: 0900 Subjective New is seen this morning while he is still sleeping in bed. He does arouse and answers questions appropriately. He states that overall he slept well and feels good. He denies having pain on examination. He is comfortably breathing on room air and does not appear to be in any acute distress. He was given Seroquel 25 milligrams at approximately 230 a.m. and slept well following this. Last reported blood pressure was 151/72. Objective Vital Signs Vital signs Vital Signs Date Time Temp Pulse Resp B/P Pulse Ox O2 Delivery O2 Flow Rate FiO2 11/22/16 12:25 80 11/22/16 12:14 20 11/22/16 08:00 97.4 156/106 96 Room Air Height (Feet): 5 Height (Inches): 11.00 Weight (Kilograms): 87.800 General General Appearance: Alert, Orientated x 3, Cooperative, No Acute Distress Eyes (Brief) Eyes: FOUND: EOMI ENMT (Brief) ENMT: FOUND: mucosa moist, normal dentition, NOT FOUND: pharnyx erythema Neck (Brief) Neck: FOUND: midline, NOT FOUND: adenopathy, carotid bruits, tracheal deviation Respiratory (Brief) Respiratory: FOUND: clear all sullivan, equal bilaterally, NOT FOUND: wheezes Cardiovascular (Brief) Cardiac: FOUND: regular rate, regular rhythm, NOT FOUND: murmur, pedal edema Capillary Refill: <2 sec Abdomen (Brief) Abdominal: FOUND: BS normo active x4, soft, NOT FOUND: distended, tender Lymphatic (Brief) Lymphatic: NOT FOUND: adenopathy Musculoskeletal (Brief) Musculoskeletal: NOT FOUND: tenderness Integumentary (Brief) Integumentary: FOUND: dry, pink, warm Neurologic (Brief) Neurological: FOUND: cranial 2-12 intact Psychiatric (Brief) Psychiatric: FOUND: alert, attentive, normal affect Laboratory Laboratory Laboratory Tests 11/21/16 06:15 11/22/16 04:54 Laboratory Tests 11/21/16 06:15 11/22/16 04:54 Assessment & Plan Problems: (1) Schizophrenia, unspecified Status: Chronic (2) Alzheimer's dementia without behavioral disturbance Status: Chronic (3) Ambulatory dysfunction Status: Chronic (4) Hypertension Status: Chronic (5) ASHD (arteriosclerotic heart disease) Status: Chronic (6) Hyperlipidemia Status: Chronic (7) GERD (gastroesophageal reflux disease) Status: Chronic (8) Atrial fibrillation, chronic Status: Chronic (9) CKD (chronic kidney disease) Status: Chronic (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 WBC count continues to be mildly elevated. Again asked nursing staff to obtain a urinalysis that was ordered yesterday. Continues on Clindamycin antibiotic for treatment of Pneumonia. End date for 2 week course. Blood pressure continues to be intermittently elevated. Continue on Coreg 25 twice a day, will continue to monitor Hypokalemia, improved following oral supplementation. Recheck CBC and BMP tomorrow Code Status Do Not Resuscitate Hospital Course Summary Disclaimer The hospital course summary below is not to be considered part of the above Progress Note. Hospital Course Summary 11/21/16 Agree with admission to [facility] unit for ongoing psychiatric care and treatment recommendations It is reported that patient has have a significant cognitive decline over the past 6 months. It is unclear regarding the length at which patient has had tremor/rigidity. He did have psychosis and was prescribed Zyprexa initially. However, this has been held since admission to the hospital. PT was consulted given that patient is requiring a lift for transfers. It is unclear if this is patient's baseline. Noted to have a cough as well as increase in WBC count today to 13.7 from 8.9 yesterday. Will recheck a Chest Xray today. Will also recheck UA to rule out infection Continues on Clindamycin antibiotic for treatment of Pneumonia. End date for 2 week course. INR today is 1.94, Continue with Coumadin daily via pharmacy dosing/management. Will give one time dose of oral potassium supplementation given mild hypokalemia of 3.5 Continue with Coreg 25mg BID for rate control Recheck CBC and BMP tomorrow 11/22/16 Appears to be less anxious and agitated this morning following dose of Seroquel overnight. WBC count continues to be mildly elevated. Again asked nursing staff to obtain a urinalysis that was ordered yesterday. Continues on Clindamycin antibiotic for treatment of Pneumonia. End date for 2 week course. Blood pressure continues to be intermittently elevated. Continue on Coreg 25 twice a day, will continue to monitor Hypokalemia, improved following oral supplementation. Recheck CBC and BMP tomorrow TORRES DUTTON MD 11/22/16 1919: PAULETTE PAEZ APRN Nov 22, 2016 12:58 TORRES DUTTON MD Nov 22, 2016 19:19
[2016-11-22] MEDS: CILOSTAZOL 50 MG TABLET PO SCH (13:02)
[2016-11-22] MEDS: ESCITALOPRAM 10 MG TABLET PO SCH (13:02)
[2016-11-22] MEDS: MAGNESIUM OXIDE 400 MG TABLET PO SCH ×2 (13:02→20:43)
[2016-11-22] MEDS: ASPIRIN 81 MG CHEWABLE TABLET PO SCH (13:03)
[2016-11-22] MEDS: POTASSIUM CHLORIDE 20 MEQ TABLET PO SCH ×2 (13:03→17:30)
[2016-11-22] MEDS: PANTOPRAZOLE 40 MG TABLET PO SCH (13:03)
[2016-11-22] MEDS: CARVEDILOL 25 MG TABLET PO SCH ×2 (13:03→17:30)
[2016-11-22] MEDS: THIAMINE 100 MG TABLET PO SCH ×3 (13:04→20:44)
[2016-11-22] MEDS: FUROSEMIDE 20 MG TABLET PO SCH ×2 (13:04→14:00)
[2016-11-22] MEDS: CLINDAMYCIN 300 MG CAPSULE PO SCH ×3 (13:04→20:42)
[2016-11-22] MEDS: TIMOLOL 0.5% EYE DROPS 5ml BOTH EYES SCH ×2 (13:04→20:44)
[2016-11-22] MEDS: TIMOLOL EYE BOTH EYES SCH (13:05)
[2016-11-22] MEDS: DORZOLAMIDE BOTH EYES SCH (13:05)
[2016-11-22] MEDS: FLUTICASONE NASAL SPRAY 50 MCG EA NOSTRIL SCH (13:05)
--- NOTE | 2016-11-22 14:44 | NUR ---
MID SHIFT NOTE PT IS ORIENTED TO PERSON AND PLACE. PT IS CONTINENT SO FAR FOR THIS SHIFT. PT SLEPT TILL ABOUT 0930 THIS AM AND THEN CAME OUT FOR BREAKFAST AND STAYED IN DAY ROOM TILL PRESENT. PT HAS HAD NO C/O PAIN BUT DID STATE HE FELT SHORT OF BREATH. RT WAS CALLED AND PT WAS GIVEN A BREATHING TX. PT O2 SATS HAVE BEEN BETWEEN 92%-97% AND NO ADDITIONAL O2 HAS BEEN GIVEN. PT HAS HAD NO BEHAVIORS AND HAS HAD NO PRN MEDS FOR THIS SHIFT.
[2016-11-22 16:00] VITALS: BP 149/82; PULSE 90; RESP 16; TEMP 97.6; O2SAT 90
[2016-11-22 16:37] LABS: BLOOD, URINE NEGATIVE (NEGATIVE); COLOR,URINE YELLOW (YELLOW); LEUKOCYTE ESTERASE ,URINE NEGATIVE (NEGATIVE); NITRITE,URINE NEGATIVE (NEGATIVE); UROBILINOGEN,URINE 0.2 EU/DL (NORMAL)
[2016-11-22] MEDS ORDERED: QUETIAPINE 25 MG TABLET PO PRN (18:15)
--- NOTE | 2016-11-22 19:00 | NUR ---
STATUS PT IS IN DINING AREA WATCHING THE OTHER PTS AT THIS TIME. ANSWERS QUESTIONS WITH SOME DIFFICULTY AND INAPPROPRIATE WORD CHOICES. TAKES SNACK OF PUDDING AND TALKS WITH DAUGHTER ON THE PHONE. HAS FLAT AFFECT AT THIS TIME.
--- NOTE | 2016-11-22 19:19 | NUR ---
SHIFT SUMMARY SEE PRIOR NOTE. PT HAS HAD NO BEHAVIORS AND HAS NOT NEEDED ANY PRN MEDICATION FOR THIS SHIFT. PT IS CONTINENT FOR THIS SHIFT AND A UA WAS COLLECTED THIS EVENING AND SENT. PT HAS STAYED UP AND ENGAGES IN GROUP AND ACTIVITIES FOR THIS SHIFT. WILL CONTINUE TO MONITOR PT TILL END OF SHIFT REPORT.
[2016-11-22 20:02] VITALS: BP 136/72; PULSE 82; RESP 16; TEMP 97.5; O2SAT 94
[2016-11-22] MEDS: ATORVASTATIN 40 MG TABLET PO SCH (20:42)
[2016-11-22] MEDS: QUETIAPINE 25 MG TABLET PO SCH (20:43)
[2016-11-22] MEDS: LATANOPROST 0.005% EYE DROPS 2.5 ML BOTTLE BOTH EYES SCH (20:44)
--- NOTE | 2016-11-22 21:38 | GENPN ---
[facility] Subjective Date DATE: 11/22/16 TIME: 21:25 Subjective/Severity of Illness Medications Current Medications Medications (Trade) Dose Ordered Sig/Lilly Start Time Stop Time Status Last Admin Dose Admin Acetaminophen (Tylenol Regular Strength) 1-2 tabs PRN for pain Q5H PRN 11/20/16 22:00 Aspirin (ASA) 81 mg DAILY 11/21/16 09:00 11/22/16 13:03 81 MG Atorvastatin Calcium (LIPITOR 40 mg) 40 mg HS 11/21/16 21:00 11/22/16 20:42 40 MG Cilostazol (Pletal 50 Mg) 50 mg ACB30 11/21/16 07:30 11/22/16 13:02 50 MG Clindamycin HCl (Cleocin) 300 mg TID 11/21/16 09:00 11/25/16 21:01 11/22/16 20:42 300 MG Escitalopram Oxalate (LEXAPRO 10mg) 10 mg DAILY 11/21/16 09:00 11/22/16 13:02 10 MG Fluticasone Propionate (Flonase) 1 spray DAILY 11/21/16 09:00 11/22/16 13:05 1 SPRAY Furosemide (Lasix) 20 mg 08,14 11/21/16 08:00 11/22/16 14:00 20 MG Albuterol/ Ipratropium (Duoneb) 3 ml BID PRN 11/20/16 22:00 11/21/16 04:32 3 ML Albuterol/ Ipratropium (Duoneb) 3 ml Q2HR PRN 11/20/16 22:00 Latanoprost (Xalatan) 1 drop HS 11/21/16 21:00 11/22/16 20:44 1 DROP Magnesium Oxide (Magox) 400 mg BID 11/21/16 09:00 11/22/16 20:43 400 MG Pantoprazole Sodium (Protonix) 40 mg DAILY 11/21/16 09:00 11/22/16 13:03 40 MG Polyethylene Glycol (Miralax) 17 g Q2D@09 11/21/16 09:00 11/21/16 09:39 17 G Potassium Chloride (Kdur) 20 meq BIDWM 11/21/16 08:00 11/22/16 17:30 20 MEQ Miscellaneous Medication (May use PRN orders) 1 PRN PRN 11/20/16 22:00 Haloperidol (Haldol) 0.5 mg Q6H PRN 11/20/16 22:00 11/21/16 19:02 DC 11/21/16 18:52 0.5 MG Lorazepam (Ativan) 0.5 mg Q6H PRN 11/20/16 22:00 11/21/16 18:52 0.5 MG Lorazepam (Ativan) 0.5 mg Q6H PRN 11/20/16 22:00 Haloperidol Lactate (Haldol 5 Mg/ml Inj) 0.5 mg Q6H PRN 11/20/16 22:00 11/21/16 19:02 DC Warfarin Sodium (Coumadin Protocol) NOTE 11/21/16 07:00 Warfarin Sodium (COUMADIN 2 mg) 2 mg NOON 11/21/16 12:00 11/21/16 12:30 DC 11/21/16 11:16 2 MG Carvedilol (Coreg) 25 mg BIDWM 11/21/16 10:45 11/22/16 17:30 25 MG Dorzolamide/ Timolol (Cosopt Ocumeter Plus) 1 drop DAILY 11/22/16 09:00 11/22/16 13:05 1 DROP Timolol Hemihydrate (Timoptic 0.5% Eye Drops) 1 drop BID 11/21/16 21:00 11/22/16 20:44 1 DROP Quetiapine Fumarate (Seroquel) 25 mg Q6HR PRN 11/21/16 19:00 11/22/16 18:12 DC 11/22/16 02:29 25 MG Quetiapine Fumarate (Seroquel) 12.5 mg HS 11/21/16 21:00 11/22/16 09:00 DC 11/21/16 19:07 12.5 MG Thiamine HCl (Vit. B1) 100 mg TID 11/22/16 09:00 11/22/16 20:44 100 MG Quetiapine Fumarate (Seroquel) 12.5 mg Q6HR PRN 11/22/16 18:15 Quetiapine Fumarate (Seroquel) 12.5 mg HS 11/22/16 21:00 11/22/16 20:43 12.5 MG Subjective Patient seen, chart reviewed and vitals noted to be stable. Patient was transferred from the medical unit on 11/20/16 after an admission for sepsis/ pneumonia. He has history of hallucinations and restlessness. He was said to have received Ativan 0.5mg at about 2245 last night and he was also given PRN Seroquel 25mg at about 0229 this morning. He continues to endorse auditory hallucinations and feels like the hallucinations are worst at night and better during the day. He has good appetite. He describes his mood as "good" and denies SI/HI. Examined patient for joint rigidity and there was none appreciated. The medical team are following him for pneumonia and he is on Clindamycin 250mg TID for that. His CBC today show mild leucocytosis with left shift. Time of Service: 17:30 Start Time: :30 Stop Time: 17:45 Care >50% of this visit spent in counseling/coordination care. [facility] Exam Vitals Vital Signs Date Time Temp Pulse Resp B/P Pulse Ox O2 Delivery O2 Flow Rate FiO2 11/22/16 20:02 97.5 82 16 136/72 94 Room Air Physical examination performed by the hospitalist. Height (Feet): 5 Height (Inches): 11.00 Mental Status Exam Muscle Strength/Tone: Weak Dressing: Casual Grooming: Disheveled Attitude: Cooperative Motor Activity: Normal Eye Contact: Fair Speech: Normal Volume: Loud Rhythm: Mumbled Sensory: Alert Orientation: Disoriented to place, Disoriented to situation, Oriented to person Mood: Neutral Affect: Restricted Rate of Thoughts: Appropriate Rate Thought Organization: Disorganized Associations: Loose-associations Abstract Reasoning: Impaired, concrete Computation: Poor Computation Thought Content: Delusions Current Hallucinations: Auditory Attention Span/Concentration: Short Span Language: Naming Impaired Fund of Knowledge: Poor fund of knowledge Memory: Poor-immediate, Poor-recent Suicidal Ideation: None Homicidal Ideation: None Insight: Poor Judgment: Poor Impulse Control: Poor Laboratory Tests Test 11/22/16 04:54 11/22/16 16:30 White Blood Count 12.2T/MM3 Red Blood Count 4.14M/MM3 Hemoglobin 11.6GM/DL Hematocrit 36.0% Mean Corpuscular Volume 87.0UM3 Mean Corpuscular Hemoglobin 28.0UUG Mean Corpuscular Hemoglobin Concent 32.2GM/DL RDW Standard Deviation 53.9FL Platelet Count 287T/MM3 Mean Platelet Volume 10.3UM3 Neutrophils % (Manual) 94.0% Lymphocytes % (Manual) 3.0% Monocytes % (Manual) 2.0% Eosinophils % (Manual) 1.0% Absolute Neutrophils (Manual) 11.5T/MM3 Lymphocytes # (Manual) 0.4T/MM3 Monocytes # (Manual) 0.2T/MM3 Eosinophils # (Manual) 0.1T/MM3 Anisocytosis 1+ Red Cell Morphology Comment Abnormal Prothromb Time International Ratio 1.83 Turbidity < 20 Sodium Level 140MEQ/L Potassium Level 3.6MEQ/L Chloride Level 104MEQ/L Carbon Dioxide Level 30MEQ/L Anion Gap 6MEQ/L Blood Urea Nitrogen 27.0MG/DL Creatinine 0.9MG/DL Glomerular Filtration Rate Calc 82 BUN/Creatinine Ratio 30RATIO Glucose Level 119MG/DL Calculated Osmolality 275MOSM/KG Calcium Level 9.2MG/DL Phosphorus Level 2.2MG/DL Magnesium Level 1.6MG/DL Icterus Index < 2 Albumin 2.7G/DL Chemistry Specimen Hemolysis < 15 Urine Collection Type Voided-not cc-midstr Urine Color Yellow Urine Turbidity Clear Urine pH 7.0 Urine Specific [place] 1.010 Urine Protein Negative Urine Glucose (UA) Negative Urine Ketones Negative Urine Blood Negative Urine Nitrite Negative Urine Bilirubin Negative Urine Urobilinogen 0.2EU/DL Urine Leukocyte Esterase Negative Urinalysis Comment Microscopic not ind. 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 Plan: -Admit to [facility] unit. Obtain Vitamin B12 and folate. Observe patient in the unit. 11/21/16: Seroquel 12.5mg po qhs. Thiamine 100mg TID. 11/21/16: Cont Seroquel 12.5mg and also change PRN Seroquel to 12.5mg q6 prn agitation LIBBY PRICE MD Nov 22, 2016 21:33
--- NOTE | 2016-11-23 00:02 | NUR ---
PRN MEDICATION PT IS VERY UNSETTLED THIS PM. SETS ON SIDE OF THE BED SEVERAL TIMES. IS OFFERED THE URINAL AND DECLINES. SERAQUEL IS GIVEN AT THIS TIME FOR AGITATION AND PT REQUIRING CONSTANT STAFF PRESENTS.
--- NOTE | 2016-11-23 00:56 | NUR ---
REASSESSMENT OF PRN MED PT IS RESTING WITHOUT CONCERNS. BED ALARM IS ON AND BED IS IN LOW POSITION.
--- NOTE | 2016-11-23 02:06 | NUR ---
Chart Check 24 hour chart check completed
[2016-11-23 03:19] LABS: FOLATE 12.7 NG/ML (2.76-20)
[2016-11-23 05:22] LABS: INR 1.61 (0.76-1.04); PROTHROMBIN TIME 17.6 SEC (9.31-12.49)
[2016-11-23] MEDS: ACETAMINOPHEN 325 MG TABLET PO PRN (05:40)
--- NOTE | 2016-11-23 06:25 | NUR ---
SHIFT SUMMARY PT IS IN THE COMMON ROOM AT THE AT SHIFT CHANGE. REQUEST SNACK PUDDING IS PROVIDED. PT IS PLEASANTLY CONFUSED AND VERY YOMBA SHOSHONE. PT TALKS WITH FAMILY ON THE PHONE WHILE IN THE COMMON AREA. NO SIGNS OF DISTRESS OR ANXIETY ARE NOTED. TAKES PO MEDICATIONS WITHOUT INCIDENT. PT IS SHOWERED PRIOR TO BED WITH PM CARES ASSISTED BY JUAN X2. PT IS PIVOT TRANSFER TO FULL LIFT THROUGH THE SHIFT. AT 0030 PT IS RESTLESS AND STATES THAT HE CANNOT SLEEP. SEROQUEL IS GIVEN PRN AT THIS TIME. PT SETTLES AND RESTS FOR A SHORT TIME. PT IS UP AND DOWN ON THE SIDE OF THE BED. STATES FIRST THAT HE IS HAVING DIFFICULTY BREATHING. VITALS ARE TAKEN ALL WNL. PT IS GIVEN TYLENOL FOR GENERAL DISCOMFORT. PT DOES NOT SLEEP WELL. RT IS CALLED AND PRN BREATHING TREATMENT IS GIVEN.
[2016-11-23 06:30] VITALS: O2SAT 100
[2016-11-23] MEDS: ALBUTEROL/IPRATROPIUM INHAL. 2.5mg-0.5mg/3ml Neb. AEROSOL PRN ×2 (06:40→19:50)
[2016-11-23 08:00] VITALS: BP 148/91; PULSE 96; RESP 20; TEMP 98.3; O2SAT 97
--- NOTE | 2016-11-23 08:00 | NUR ---
Pt status Pt responds to name and is cooperative with gettting dressed and personal care. Pt did brush dentures and washed face with prompts. No negative verbalizations or complaints of discomfort. Pt fed self and took medication crushed without problems.
[2016-11-23] MEDS: CILOSTAZOL 50 MG TABLET PO SCH (08:34)
[2016-11-23] MEDS: CARVEDILOL 25 MG TABLET PO SCH ×2 (08:35→17:19)
[2016-11-23] MEDS: ASPIRIN 81 MG CHEWABLE TABLET PO SCH (08:35)
[2016-11-23] MEDS: CLINDAMYCIN 300 MG CAPSULE PO SCH ×3 (08:35→19:44)
[2016-11-23] MEDS: FUROSEMIDE 20 MG TABLET PO SCH ×2 (08:35→14:38)
[2016-11-23] MEDS: PANTOPRAZOLE 40 MG TABLET PO SCH (08:35)
[2016-11-23] MEDS: ESCITALOPRAM 10 MG TABLET PO SCH (08:35)
[2016-11-23] MEDS: THIAMINE 100 MG TABLET PO SCH ×3 (08:35→19:45)
[2016-11-23] MEDS: POTASSIUM CHLORIDE 20 MEQ TABLET PO SCH ×2 (08:35→17:19)
[2016-11-23] MEDS: MAGNESIUM OXIDE 400 MG TABLET PO SCH ×2 (08:35→19:44)
[2016-11-23] MEDS: POLYETHYL.GLYCOL 3350 PACKET 17gm PO SCH (08:36)
[2016-11-23] MEDS: FLUTICASONE NASAL SPRAY 50 MCG EA NOSTRIL SCH (08:37)
[2016-11-23] MEDS: TIMOLOL 0.5% EYE DROPS 5ml BOTH EYES SCH ×2 (08:37→19:46)
[2016-11-23] MEDS: DORZOLAMIDE BOTH EYES SCH (08:38)
[2016-11-23] MEDS: TIMOLOL EYE BOTH EYES SCH (08:38)
--- NOTE | 2016-11-23 09:34 | NUR ---
WARFARIN CONSULT S: 76 y/o M on warfarin for afib; home dose is 5.5 mg daily. Goal INR 2-3. O: Date INR Warfarin Dose 11/12 5.68 HELD 11/13 5.72 HELD 11/14 5.07 HELD 11/15 5.38 HELD...VITAMIN K 1 MG PO GIVEN 11/16 3.39 HELD 11/17 1.55 3 mg 11/18 1.55 4 mg 11/19 2.31 1 mg 11/20 1.97 2 mg 11/21 1.94 2 mg 11/22 1.83 3 mg 11/23 1.61 PLAN 5MG A/P: INR subtherapeutic. Will order warfarin 5 mg PO today. Will continue to monitor & make adjustments accordingly. Thank you for the consult.
--- NOTE | 2016-11-23 11:16 | NUR ---
WIRE FENCE BUILDER--AM GROUP Pt. was present and passively participated in psychoeducational group facilitated by [facility]. Topic was on anxiety and how it impacts someone both physically and/or mentally. Reminded patients that people come into our lives for a reason, season or lifetime and it is important to cherish people, no matter what purpose they serve. Pt. is restless and wants to go back to his room to go to bed. With encouragement, he stays through almost all of the group. He does not attempt to answer any questions asked of him. Finished group by listening to Hoahaoism hymns. Pt.'s facial expressions do not change at all during the group process.
[2016-11-23] MEDS ORDERED: WARFARIN 5 MG TABLET PO SCH (12:00)
[2016-11-23 16:34] VITALS: BP 127/75; PULSE 94; RESP 18; TEMP 97.3; O2SAT 99
--- NOTE | 2016-11-23 18:06 | NUR ---
Shift Summary Pt does not describe any auditory hallucinations or expresses agitation or anger. Is passive and doesn't interact with others but is very [place] right ear and deaf in left ear. Pt able to verbalize his needs and requests for help in appropriate manner.
[2016-11-23 18:40] VITALS: O2SAT 99
[2016-11-23] MEDS: ATORVASTATIN 40 MG TABLET PO SCH (19:44)
[2016-11-23] MEDS: QUETIAPINE 25 MG TABLET PO SCH (19:45)
[2016-11-23] MEDS: LATANOPROST 0.005% EYE DROPS 2.5 ML BOTTLE BOTH EYES SCH (19:46)
[2016-11-23 22:33] VITALS: BP 112/67; PULSE 94; RESP 18; TEMP 98.1; O2SAT 96
--- NOTE | 2016-11-23 23:35 | GENPN ---
[facility] Subjective Date DATE: 11/23/16 TIME: 23:29 Subjective/Severity of Illness Medications Current Medications Medications (Trade) Dose Ordered Sig/Lilly Start Time Stop Time Status Last Admin Dose Admin Acetaminophen (Tylenol Regular Strength) 1-2 tabs PRN for pain Q5H PRN 11/20/16 22:00 11/23/16 05:40 325 MG Aspirin (ASA) 81 mg DAILY 11/21/16 09:00 11/23/16 08:35 81 MG Atorvastatin Calcium (LIPITOR 40 mg) 40 mg HS 11/21/16 21:00 11/23/16 19:44 40 MG Cilostazol (Pletal 50 Mg) 50 mg ACB30 11/21/16 07:30 11/23/16 08:34 50 MG Clindamycin HCl (Cleocin) 300 mg TID 11/21/16 09:00 11/25/16 21:01 11/23/16 19:44 300 MG Escitalopram Oxalate (LEXAPRO 10mg) 10 mg DAILY 11/21/16 09:00 11/23/16 08:35 10 MG Fluticasone Propionate (Flonase) 1 spray DAILY 11/21/16 09:00 11/23/16 08:37 1 SPRAY Furosemide (Lasix) 20 mg 08,14 11/21/16 08:00 11/23/16 14:38 20 MG Albuterol/ Ipratropium (Duoneb) 3 ml BID PRN 11/20/16 22:00 11/23/16 19:50 3 ML Albuterol/ Ipratropium (Duoneb) 3 ml Q2HR PRN 11/20/16 22:00 Latanoprost (Xalatan) 1 drop HS 11/21/16 21:00 11/23/16 19:46 1 DROP Magnesium Oxide (Magox) 400 mg BID 11/21/16 09:00 11/23/16 19:44 400 MG Pantoprazole Sodium (Protonix) 40 mg DAILY 11/21/16 09:00 11/23/16 08:35 40 MG Polyethylene Glycol (Miralax) 17 g Q2D@09 11/21/16 09:00 11/23/16 08:36 17 G Potassium Chloride (Kdur) 20 meq BIDWM 11/21/16 08:00 11/23/16 17:19 20 MEQ Miscellaneous Medication (May use PRN orders) 1 PRN PRN 11/20/16 22:00 Haloperidol (Haldol) 0.5 mg Q6H PRN 11/20/16 22:00 11/21/16 19:02 DC 11/21/16 18:52 0.5 MG Lorazepam (Ativan) 0.5 mg Q6H PRN 11/20/16 22:00 11/21/16 18:52 0.5 MG Lorazepam (Ativan) 0.5 mg Q6H PRN 11/20/16 22:00 Haloperidol Lactate (Haldol 5 Mg/ml Inj) 0.5 mg Q6H PRN 11/20/16 22:00 11/21/16 19:02 DC Warfarin Sodium (Coumadin Protocol) NOTE 11/21/16 07:00 Warfarin Sodium (COUMADIN 2 mg) 2 mg NOON 11/21/16 12:00 11/21/16 12:30 DC 11/21/16 11:16 2 MG Carvedilol (Coreg) 25 mg BIDWM 11/21/16 10:45 11/23/16 17:19 25 MG Dorzolamide/ Timolol (Cosopt Ocumeter Plus) 1 drop DAILY 11/22/16 09:00 11/23/16 08:38 1 DROP Timolol Hemihydrate (Timoptic 0.5% Eye Drops) 1 drop BID 11/21/16 21:00 11/23/16 19:46 1 DROP Quetiapine Fumarate (Seroquel) 25 mg Q6HR PRN 11/21/16 19:00 11/22/16 18:12 DC 11/22/16 02:29 25 MG Quetiapine Fumarate (Seroquel) 12.5 mg HS 11/21/16 21:00 11/22/16 09:00 DC 11/21/16 19:07 12.5 MG Thiamine HCl (Vit. B1) 100 mg TID 11/22/16 09:00 11/23/16 19:45 100 MG Quetiapine Fumarate (Seroquel) 12.5 mg Q6HR PRN 11/22/16 18:15 11/22/16 23:50 12.5 MG Quetiapine Fumarate (Seroquel) 12.5 mg HS 11/22/16 21:00 11/23/16 19:45 12.5 MG Warfarin Sodium (COUMADIN 5 mg) 5 mg NOON 11/23/16 12:00 11/23/16 12:15 DC 11/23/16 12:08 5 MG Subjective Patient seen and chart examined. Case discussed with treatment team. Nursing reports pt is doing better. Mood stable. No behaviors noted. On face tt face the pt states he is feeling better. He is alert and oriented x 2. He reports his mood is stable. He reports tolerating his medication well. Voices no concerns at this time. Time of Service: 16:45 Start Time: 16:45 Stop Time: 17:00 Care >50% of this visit spent in counseling/coordination care. [facility] Exam Vitals Vital Signs Date Time Temp Pulse Resp B/P Pulse Ox O2 Delivery O2 Flow Rate FiO2 11/23/16 22:33 98.1 94 18 112/67 96 Room Air Physical examination performed by the hospitalist. Height (Feet): 5 Height (Inches): 11.00 Mental Status Exam Muscle Strength/Tone: Normal Dressing: Casual Grooming: Good Attitude: Cooperative Motor Activity: Retardation Eye Contact: Fair Speech: Slowed Volume: Soft Rhythm: Appropriate Rhythm Sensory: Alert Orientation: Oriented to person, Oriented to place Mood: Neutral Affect: Congruent Rate of Thoughts: Delayed Thought Organization: [place] Associations: Intact Abstract Reasoning: Impaired, concrete Thought Content: Normal Perception/Psychotic: Perception Normal Attention Span/Concentration: Short Span Fund of Knowledge: Poor fund of knowledge Memory: Poor-immediate, Poor-recent Suicidal Ideation: None Homicidal Ideation: None Insight: Fair Judgment: Fair Impulse Control: Fair Laboratory Tests Test 11/23/16 04:56 Prothromb Time International Ratio 1.61 Assessment and Plan (1) 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 Plan: -Admit to [facility]. Obtain Vitamin B12 and folate. Observe patient in the unit. 11/21/16: Seroquel 12.5mg po qhs. Thiamine 100mg TID. 11/21/16: Cont Seroquel 12.5mg and also change PRN Seroquel to 12.5mg q6 prn agitation 11/22/16: Continue current care Cont. current psych. meds EDWAR ADDISON MD Nov 23, 2016 23:33
[2016-11-23 23:36] VITALS: PULSE 94
--- NOTE | 2016-11-24 00:58 | NUR ---
Mid shift status Pt was sitting in day room at beginning of shift. Pt alert to person and place. Up assist x 2 with pivot to WC. Pt pleasant and cooperative with assessment. Denies pain. Denies SOA. Pt [place] right ear. Deaf in left ear. Pt has not displayed any aggression, or agitation. No behaviors noted. No PRNs given at this time. Pt denies hallucinations at assessment. Pt presents with wheezing upon exertion. Received PRN breathing treatment prior to beginning of shift. Pt was restless a short time after going to bed. He repeatedly was up and down in bed, setting off the alarm. Upon entering pt room, pt was sitting on side of bed. Repositioned pt at that time. Pt wears TOMÁS hose during day. Currently sleeping. Bed rails up x 3. Alarm on. Will continue to monitor
--- NOTE | 2016-11-24 00:58 | NUR ---
Chart Check 24 hour chart check completed
[2016-11-24] MEDS: ALBUTEROL/IPRATROPIUM INHAL. 2.5mg-0.5mg/3ml Neb. AEROSOL PRN ×3 (05:15→16:18)
[2016-11-24 06:05] LABS: INR 1.95 (0.76-1.04); PROTHROMBIN TIME 21.3 SEC (9.31-12.49)
--- NOTE | 2016-11-24 06:21 | NUR ---
Summary Pt slept 6.5 hours this shift. Alert x 2. Up assist x 2 pivot to WC and transfer. Pleasant and cooperative with cares. Compliant with all meds, taking crushed in pudding without difficulty. Pt has not displayed any aggression, verbal or physical. No agitation or behaviors noted. PRN breathing treatment given at 0505 for c/o SOA and crackles auscultated in lower bases along with wet cough. No behavioral PRNs given. Currently sleeping. Bed rails up x 2 and alarm on. Will continue to monitor Addendum: 11/24/16 at 0640 by MACARIO CARROLL RN Obtained pt daily weight this shift. Results 82.8 kg compared to weight of 87.8 kg on 11/22/16, showing a loss of 11 lbs. Will have pt reweighed when awake. Will continue to monitor
--- NOTE | 2016-11-24 06:51 | NUR ---
PRN Oxygen Pt continued to c/o SOA and presenting with wet, productive cough. PRN O2 2L NC started at 0650. Will continue to monitor
[2016-11-24 08:11] VITALS: BP 129/87; PULSE 102; RESP 20; TEMP 98.3; O2SAT 94
[2016-11-24 10:03] VITALS: PULSE 102
--- NOTE | 2016-11-24 10:35 | GENPN ---
[facility] Subjective Date DATE: 11/24/16 TIME: 10:31 Subjective/Severity of Illness Medications Current Medications Medications (Trade) Dose Ordered Sig/Lilly Start Time Stop Time Status Last Admin Dose Admin Acetaminophen (Tylenol Regular Strength) 1-2 tabs PRN for pain Q5H PRN 11/20/16 22:00 11/23/16 05:40 325 MG Aspirin (ASA) 81 mg DAILY 11/21/16 09:00 11/23/16 08:35 81 MG Atorvastatin Calcium (LIPITOR 40 mg) 40 mg HS 11/21/16 21:00 11/23/16 19:44 40 MG Cilostazol (Pletal 50 Mg) 50 mg ACB30 11/21/16 07:30 11/23/16 08:34 50 MG Clindamycin HCl (Cleocin) 300 mg TID 11/21/16 09:00 11/25/16 21:01 11/23/16 19:44 300 MG Escitalopram Oxalate (LEXAPRO 10mg) 10 mg DAILY 11/21/16 09:00 11/23/16 08:35 10 MG Fluticasone Propionate (Flonase) 1 spray DAILY 11/21/16 09:00 11/23/16 08:37 1 SPRAY Furosemide (Lasix) 20 mg 08,14 11/21/16 08:00 11/23/16 14:38 20 MG Albuterol/ Ipratropium (Duoneb) 3 ml BID PRN 11/20/16 22:00 11/23/16 19:50 3 ML Albuterol/ Ipratropium (Duoneb) 3 ml Q2HR PRN 11/20/16 22:00 11/24/16 05:15 3 ML Latanoprost (Xalatan) 1 drop HS 11/21/16 21:00 11/23/16 19:46 1 DROP Magnesium Oxide (Magox) 400 mg BID 11/21/16 09:00 11/23/16 19:44 400 MG Pantoprazole Sodium (Protonix) 40 mg DAILY 11/21/16 09:00 11/23/16 08:35 40 MG Polyethylene Glycol (Miralax) 17 g Q2D@09 11/21/16 09:00 11/23/16 08:36 17 G Potassium Chloride (Kdur) 20 meq BIDWM 11/21/16 08:00 11/23/16 17:19 20 MEQ Miscellaneous Medication (May use PRN orders) 1 PRN PRN 11/20/16 22:00 Haloperidol (Haldol) 0.5 mg Q6H PRN 11/20/16 22:00 11/21/16 19:02 DC 11/21/16 18:52 0.5 MG Lorazepam (Ativan) 0.5 mg Q6H PRN 11/20/16 22:00 11/21/16 18:52 0.5 MG Lorazepam (Ativan) 0.5 mg Q6H PRN 11/20/16 22:00 Haloperidol Lactate (Haldol 5 Mg/ml Inj) 0.5 mg Q6H PRN 11/20/16 22:00 11/21/16 19:02 DC Warfarin Sodium (Coumadin Protocol) NOTE 11/21/16 07:00 Warfarin Sodium (COUMADIN 2 mg) 2 mg NOON 11/21/16 12:00 11/21/16 12:30 DC 11/21/16 11:16 2 MG Carvedilol (Coreg) 25 mg BIDWM 11/21/16 10:45 11/23/16 17:19 25 MG Dorzolamide/ Timolol (Cosopt Ocumeter Plus) 1 drop DAILY 11/22/16 09:00 11/23/16 08:38 1 DROP Timolol Hemihydrate (Timoptic 0.5% Eye Drops) 1 drop BID 11/21/16 21:00 11/23/16 19:46 1 DROP Quetiapine Fumarate (Seroquel) 25 mg Q6HR PRN 11/21/16 19:00 11/22/16 18:12 DC 11/22/16 02:29 25 MG Quetiapine Fumarate (Seroquel) 12.5 mg HS 11/21/16 21:00 11/22/16 09:00 DC 11/21/16 19:07 12.5 MG Thiamine HCl (Vit. B1) 100 mg TID 11/22/16 09:00 11/23/16 19:45 100 MG Quetiapine Fumarate (Seroquel) 12.5 mg Q6HR PRN 11/22/16 18:15 11/22/16 23:50 12.5 MG Quetiapine Fumarate (Seroquel) 12.5 mg HS 11/22/16 21:00 11/23/16 19:45 12.5 MG Warfarin Sodium (COUMADIN 5 mg) 5 mg NOON 11/23/16 12:00 11/23/16 12:15 DC 11/23/16 12:08 5 MG Subjective Patient seen and chart examined. Nursing reports pt is doing well. On face to face the pt states he is feeling better. He is alert and oriented x 2. Believes it is January 2016. Pt slept well. Pt voices no concerns at this time. Tolerating meds Time of Service: 10:30 Start Time: 10:30 Stop Time: 10:45 Care >50% of this visit spent in counseling/coordination care. [facility] Exam Vitals Vital Signs Date Time Temp Pulse Resp B/P Pulse Ox O2 Delivery O2 Flow Rate FiO2 11/24/16 10:03 102 11/24/16 08:11 98.3 20 129/87 94 Nasal Cannula 2.00 Physical examination performed by the hospitalist. Height (Feet): 5 Height (Inches): 11.00 Mental Status Exam Muscle Strength/Tone: Normal Dressing: Casual Grooming: Good Attitude: Cooperative Motor Activity: Retardation Eye Contact: Fair Speech: Slowed Volume: Soft Rhythm: Appropriate Rhythm Sensory: Alert Orientation: Oriented to person, Oriented to place Mood: Neutral Affect: Congruent Rate of Thoughts: Delayed Thought Organization: [place] Associations: Intact Abstract Reasoning: Impaired, concrete Thought Content: Normal Perception/Psychotic: Hx psychosis,not current Attention Span/Concentration: Short Span Fund of Knowledge: Poor fund of knowledge Memory: Poor-immediate, Poor-recent Suicidal Ideation: None Homicidal Ideation: None Insight: Fair Judgment: Fair Impulse Control: Fair Laboratory Tests Test 11/24/16 05:41 Prothromb Time International Ratio 1.95 Assessment and Plan (1) 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 Plan: -Admit to [facility]. Obtain Vitamin B12 and folate. Observe patient in the unit. 11/21/16: Seroquel 12.5mg po qhs. Thiamine 100mg TID. 11/21/16: Cont Seroquel 12.5mg and also change PRN Seroquel to 12.5mg q6 prn agitation 11/22/16: Continue current care 11/24/16 Continue current care Cont. current psych. meds EDWAR ADDISON MD Nov 24, 2016 10:35
[2016-11-24] MEDS: CARVEDILOL 25 MG TABLET PO SCH ×2 (11:17→17:08)
[2016-11-24] MEDS: CILOSTAZOL 50 MG TABLET PO SCH (11:17)
[2016-11-24] MEDS: FUROSEMIDE 20 MG TABLET PO SCH ×2 (11:18→15:31)
[2016-11-24] MEDS: ASPIRIN 81 MG CHEWABLE TABLET PO SCH (11:18)
[2016-11-24] MEDS: CLINDAMYCIN 300 MG CAPSULE PO SCH ×3 (11:18→19:39)
[2016-11-24] MEDS: POTASSIUM CHLORIDE 20 MEQ TABLET PO SCH ×2 (11:18→17:08)
[2016-11-24] MEDS: ESCITALOPRAM 10 MG TABLET PO SCH (11:19)
[2016-11-24] MEDS: MAGNESIUM OXIDE 400 MG TABLET PO SCH ×2 (11:19→19:39)
[2016-11-24] MEDS: PANTOPRAZOLE 40 MG TABLET PO SCH (11:19)
[2016-11-24] MEDS: DORZOLAMIDE BOTH EYES SCH (11:20)
[2016-11-24] MEDS: FLUTICASONE NASAL SPRAY 50 MCG EA NOSTRIL SCH (11:20)
[2016-11-24] MEDS: THIAMINE 100 MG TABLET PO SCH ×3 (11:20→19:39)
[2016-11-24] MEDS: TIMOLOL EYE BOTH EYES SCH (11:20)
[2016-11-24] MEDS: TIMOLOL 0.5% EYE DROPS 5ml BOTH EYES SCH ×2 (11:21→19:40)
[2016-11-24] MEDS ORDERED: WARFARIN 4 MG TABLET PO ONE (12:00)
--- NOTE | 2016-11-24 13:49 | NUR ---
Status Pt is alert to person and place. Pleasant and cooperative with cares and assessment this morning. Pt slept until 9 am then got up for breakfast. Pt sat in recliner visiting with other pts and staff this morning. Pt ate 100% of breakfast and lunch. 02 on at 2L/N to assist with breathing. Pt is laying down at this time. No behaviors noted, no hallucinations.
--- NOTE | 2016-11-24 15:46 | PNPDOC ---
Subjective Date DATE: 11/24/16 TIME: 15:35 Brandt Wolff is seen today in follow up for his recent pneumonia. He is seen while resting in the recliner in the day room. He arouses easily with soft touch and denies any concerns or complaints. Nursing reports that he complained of feeling short of breath today when receiving his breathing treatment by respiratory therapy. At that time his pulse ox was noted to be 100%. He was placed on 2L NC for comfort. He remains on clindamycin until 11/25/16 for his recent pneumonia. He denies any fevers, chills, chest pain, abdominal pain, nausea, vomiting or dizziness. On exam, he is breathing easily on 2L NC. Initial respiratory exam revealed course rhonchi which cleared with cough and bibasilar crackles. Cardiac exam revealed regular rate and rhythm. Abdomen is soft, nontender with active bowel sounds. 1+ edema to bilateral lower extremities with TOMÁS hose in place. Appetite stable and bowels moving. No new labs. Objective Vital Signs Vital signs Vital Signs Date Time Temp Pulse Resp B/P Pulse Ox O2 Delivery O2 Flow Rate FiO2 11/24/16 12:16 96 11/24/16 12:00 20 11/24/16 08:11 98.3 129/87 94 Nasal Cannula 2.00 Height (Feet): 5 Height (Inches): 11.00 Weight (Kilograms): 82.800 General General Appearance: Alert, Cooperative, No Acute Distress Eyes (Brief) Eyes: FOUND: PERRL ENMT (Brief) ENMT: FOUND: mucosa moist Neck (Brief) Neck: FOUND: midline, NOT FOUND: nuchal rigidity, tracheal deviation Respiratory (Brief) Respiratory: FOUND: rales, symmetrical, NOT FOUND: wheezes Comments rhonchi cleared with self induced cough. Cardiovascular (Brief) Cardiac: FOUND: pedal edema (1+), regular rate, regular rhythm Abdomen (Brief) Abdominal: FOUND: BS normo active x4, soft, NOT FOUND: distended, tender Extremities (Brief) Extremity : Side: Bilateral Extremity: leg Extremity Finding: FOUND: edema, NOT FOUND: deformity Comments TOMÁS hose in place Musculoskeletal (Brief) Musculoskeletal: FOUND: extremities move equally, NOT FOUND: deformity, loss of motion Integumentary (Brief) Integumentary: FOUND: dry, pink, warm Comments afebrile Neurologic (Brief) Neurological: NOT FOUND: facial droop Psychiatric (Brief) Psychiatric: FOUND: alert, attentive Assessment & Plan Problems: (1) Schizophrenia, unspecified Status: Chronic (2) Alzheimer's dementia without behavioral disturbance Status: Chronic (3) Ambulatory dysfunction Status: Chronic (4) Hypertension Status: Chronic (5) ASHD (arteriosclerotic heart disease) Status: Chronic (6) Hyperlipidemia Status: Chronic (7) GERD (gastroesophageal reflux disease) Status: Chronic (8) Atrial fibrillation, chronic Status: Chronic (9) CKD (chronic kidney disease) Status: Chronic (10) Parkinsonian tremor (11) Cardiomegaly Status: Chronic (12) Alcohol use disorder, severe, in sustained remission, in controlled environment Status: Chronic Plan/Intensity of Service 11/24/16: Edwin. Nursing reported that New was complaining of feeling short of breath today with pulse ox 100% on room air. he was started on supplemental oxygen for comfort. Lung sounds revealed rhonchi initially which cleared with self forced cough revealing bilateral basilar crackles. He continues on clindamycin for prior pneumonia with treatment to be complete tomorrow (11/25/16). Will repeat CXR and monitor closely for signs of deterioration. Continue with psychiatric care per Dr. Dixon. Continue to provide safe and supportive environment. No new labs. Previous WBC trending down. Will recheck CBC and BMP in AM to monitor blood counts, electrolytes and renal function In light of edema, will monitor daily weights for signs of fluid over load. UA on 11/22 was unremarkable. Blood pressure stable. Continue with treatment. Mucinex added for mucolytic. Code Status Do Not Resuscitate Hospital Course Summary Disclaimer The hospital course summary below is not to be considered part of the above Progress Note. Hospital Course Summary 11/21/16 Agree with admission to [facility] unit for ongoing psychiatric care and treatment recommendations It is reported that patient has have a significant cognitive decline over the past 6 months. It is unclear regarding the length at which patient has had tremor/rigidity. He did have psychosis and was prescribed Zyprexa initially. However, this has been held since admission to the hospital. PT was consulted given that patient is requiring a lift for transfers. It is unclear if this is patient's baseline. Noted to have a cough as well as increase in WBC count today to 13.7 from 8.9 yesterday. Will recheck a Chest Xray today. Will also recheck UA to rule out infection Continues on Clindamycin antibiotic for treatment of Pneumonia. End date for 2 week course. INR today is 1.94, Continue with Coumadin daily via pharmacy dosing/management. Will give one time dose of oral potassium supplementation given mild hypokalemia of 3.5 Continue with Coreg 25mg BID for rate control Recheck CBC and BMP tomorrow 11/22/16 Appears to be less anxious and agitated this morning following dose of Seroquel overnight. WBC count continues to be mildly elevated. Again asked nursing staff to obtain a urinalysis that was ordered yesterday. Continues on Clindamycin antibiotic for treatment of Pneumonia. End date for 2 week course. Blood pressure continues to be intermittently elevated. Continue on Coreg 25 twice a day, will continue to monitor Hypokalemia, improved following oral supplementation. Recheck CBC and BMP tomorrow 11/24/16: Edwin. Nursing reported that New was complaining of feeling short of breath today with pulse ox 100% on room air. he was started on supplemental oxygen for comfort. Lung sounds revealed rhonchi initially which cleared with self forced cough revealing bilateral basilar crackles. He continues on clindamycin for prior pneumonia with treatment to be complete tomorrow (11/25/16). Will repeat CXR and monitor closely for signs of deterioration. Continue with psychiatric care per Dr. Dixon. Continue to provide safe and supportive environment. No new labs. Previous WBC trending down. Will recheck CBC and BMP in AM to monitor blood counts, electrolytes and renal function In light of edema, will monitor daily weights for signs of fluid over load. UA on 11/22 was unremarkable. Blood pressure stable. Continue with treatment. Mucinex added for mucolytic. NONA UGARTE Nov 24, 2016 15:39
[2016-11-24 15:52] VITALS: BP 146/83; PULSE 100; RESP 18; TEMP 97.2; O2SAT 98
[2016-11-24] MEDS: ACETAMINOPHEN 325 MG TABLET PO PRN (17:09)
--- NOTE | 2016-11-24 17:58 | NUR ---
Shift Summary Pt continues to be pleasant and cooperative with cares. No behaviors, no hallucinations noted. Pt did complain of pain, before supper pt given Tylenol 650mg. Pt states pain is better. Pt ate 100% of supper. Pt is watching TV at this time. Pt's daughter did call this afternoon update on how pt was doing given.
[2016-11-24] MEDS: ATORVASTATIN 40 MG TABLET PO SCH (19:38)
[2016-11-24] MEDS: LATANOPROST 0.005% EYE DROPS 2.5 ML BOTTLE BOTH EYES SCH (19:40)
[2016-11-24] MEDS: QUETIAPINE 25 MG TABLET PO SCH (19:40)
[2016-11-24 21:41] VITALS: BP 117/67; PULSE 86; RESP 18; TEMP 97.6; O2SAT 98
--- NOTE | 2016-11-25 01:33 | NUR ---
Chart Check 24 hour chart check completed
--- NOTE | 2016-11-25 01:33 | NUR ---
Mid shift status Pt sitting in day room at beginning of shift. Pt alert x 2. Up assist x 2 to WC. Pleasant and cooperative. Denies pain at assessment. Denies SOA. Currently on 2L O2 NC continuous for comfort. Pt presents with a wet cough. Has not coughed near as much as the previous night. Received shower this shift. Mepilex dressing on coccyx changed and barrier cream applied to coccyx area. Pt has not exhibited any hallucinations this shift. No verbal or physical aggression noted. No agitation or behaviors noted. No PRNs given. Pt has TOMÁS hose during day and off at night. Pt has edema +1 LEs. LEs elevated on pillow in bed. No breathing treatments needed at this time. Currently sleeping. Bed rails up x 2 and alarm on. Will continue to monitor
[2016-11-25 05:37] LABS: BASOPHILS % (AUTO) 0.1 % (0-2); EOSINOPHILS # (AUTO) 0.1 T/MM3 (0-0.5); EOSINOPHILS % (AUTO) 1.2 % (0-4); HCT - HEMATOCRIT 34.1 % (41-53); IMMATURE GRANULOCYTE # (AUTO) 0.02 T/MM3 (0.00-0.03); IMMATURE GRANULOCYTE % (AUTO) 0.2 % (0.0-0.5); LYMPHOCYTES # (AUTO) 0.9 T/MM3 (1-4.8); LYMPHOCYTES % (AUTO) 9.3 % (23-45); MEAN CORPUSCULAR HGB 28.2 UUG (26-34); MEAN CORPUSCULAR HGB CONC(MCHC 32.3 GM/DL (31-37); MEAN CORPUSCULAR VOLUME 87.4 UM3 (80-100); MEAN PLATELET VOLUME 10.2 UM3 (9.4-12.4); MONOCYTES # (AUTO) 0.8 T/MM3 (0-0.8); MONOCYTES % (AUTO) 8.7 % (0-9.0); NEUTROPHILS #(AUTO)-ABSOLUTE 7.7 T/MM3 (1.8-7.7); NEUTROPHILS % (AUTO) 80.5 % (33-66); WBC - WHITE BLOOD COUNT 9.5 T/MM3 (4.5-11.0)
[2016-11-25 05:39] LABS: INR 2.51 (0.76-1.04); PROTHROMBIN TIME 27.4 SEC (9.31-12.49)
[2016-11-25 05:51] LABS: ANION GAP 9 MEQ/L (5-15); BUN/CREATININE RATIO 24 RATIO (6-26); CALCIUM 8.9 MG/DL (8.4-10.2); CHLORIDE 104 MEQ/L (98-107); CO2 - CARBON DIOXIDE 27 MEQ/L (22-30); CREATININE 0.9 MG/DL (0.8-1.5); GLOMERULAR FILTRATION RATE 82; GLUCOSE 108 MG/DL (75-110); POTASSIUM 3.9 MEQ/L (3.6-5); SODIUM 140 MEQ/L (134-144)
--- NOTE | 2016-11-25 06:29 | NUR ---
Summary Pt slept 8.5 hours this shift. Alert x 2. Up assist x 2 to WC. Pt pleasant and cooperative with cares. No changes since previous status note. Compliant with meds. Pt incontinent. No displays of physical or verbal aggression. No agitation or behaviors noted. No hallucinations noted. PRN breathing treatment given this morning due to wet cough. Pt on 2L O2 NC continuous for comfort. Currently sleeping. Bed rails up x 2 and alarm on. Will continue to monitor
--- NOTE | 2016-11-25 06:53 | NUR ---
WARFARIN CONSULT S: 76 y/o M on warfarin for afib; home dose is 5.5 mg daily. Goal INR 2-3. O: Date INR Warfarin Dose 11/12 5.68 HELD 11/13 5.72 HELD 11/14 5.07 HELD 11/15 5.38 HELD...VITAMIN K 1 MG PO GIVEN 11/16 3.39 HELD 11/17 1.55 3 mg 11/18 1.55 4 mg 11/19 2.31 1 mg 11/20 1.97 2 mg 11/21 1.94 2 mg 11/22 1.83 3 mg 11/23 1.61 5 mg 11/24 1.95 4 mg 11/25 2.51 PLAN: 3 mg A/P: INR therapeutic. Will order warfarin 3 mg PO today. Will continue to monitor & make adjustments accordingly. Thank you for the consult. Donna Ramos, PharmD, BCPS
[2016-11-25 07:52] VITALS: BP 146/102; PULSE 68; RESP 16; TEMP 97.1; O2SAT 98
[2016-11-25] MEDS: CLINDAMYCIN 300 MG CAPSULE PO SCH ×3 (07:56→20:08)
[2016-11-25] MEDS: CILOSTAZOL 50 MG TABLET PO SCH (07:56)
[2016-11-25] MEDS: POTASSIUM CHLORIDE 20 MEQ TABLET PO SCH ×2 (07:56→17:08)
[2016-11-25] MEDS: ESCITALOPRAM 10 MG TABLET PO SCH (07:56)
[2016-11-25] MEDS: FUROSEMIDE 20 MG TABLET PO SCH ×3 (07:56→17:08)
[2016-11-25] MEDS: CARVEDILOL 25 MG TABLET PO SCH ×2 (07:56→17:08)
[2016-11-25] MEDS: THIAMINE 100 MG TABLET PO SCH ×3 (07:56→20:10)
[2016-11-25] MEDS: POLYETHYL.GLYCOL 3350 PACKET 17gm PO SCH (07:57)
[2016-11-25] MEDS: ASPIRIN 81 MG CHEWABLE TABLET PO SCH (07:57)
[2016-11-25] MEDS: PANTOPRAZOLE 40 MG TABLET PO SCH (07:57)
[2016-11-25] MEDS: MAGNESIUM OXIDE 400 MG TABLET PO SCH ×2 (07:57→20:09)
[2016-11-25] MEDS: DORZOLAMIDE BOTH EYES SCH (07:58)
[2016-11-25] MEDS: FLUTICASONE NASAL SPRAY 50 MCG EA NOSTRIL SCH (07:58)
[2016-11-25] MEDS: TIMOLOL 0.5% EYE DROPS 5ml BOTH EYES SCH ×2 (07:58→20:12)
[2016-11-25] MEDS: TIMOLOL EYE BOTH EYES SCH (07:58)
--- NOTE | 2016-11-25 11:13 | DI ---
Indication: ITS.REASON: recent pneumonia, SOA PROCEDURE: CHEST 1 VIEW: Encounter: Initial Comparison: November 21, 2016 Findings: Continued lower lobe areas of consolidation are slightly improved. Right pleural effusion is slightly smaller. Pulmonary edema has improved. No pneumothorax. Heart size and mediastinal contours are stable. Impression: Slightly improved pneumonia and decreasing edema. .
--- NOTE | 2016-11-25 11:23 | GENPN ---
[facility] Subjective Date DATE: 11/25/16 TIME: 11:21 Subjective/Severity of Illness Medications Current Medications Medications (Trade) Dose Ordered Sig/Lilly Start Time Stop Time Status Last Admin Dose Admin Acetaminophen (Tylenol Regular Strength) 1-2 tabs PRN for pain Q5H PRN 11/20/16 22:00 11/24/16 17:09 650 MG Aspirin (ASA) 81 mg DAILY 11/21/16 09:00 11/25/16 07:57 81 MG Atorvastatin Calcium (LIPITOR 40 mg) 40 mg HS 11/21/16 21:00 11/24/16 19:38 40 MG Cilostazol (Pletal 50 Mg) 50 mg ACB30 11/21/16 07:30 11/25/16 07:56 50 MG Clindamycin HCl (Cleocin) 300 mg TID 11/21/16 09:00 11/25/16 21:01 11/25/16 07:56 300 MG Escitalopram Oxalate (LEXAPRO 10mg) 10 mg DAILY 11/21/16 09:00 11/25/16 07:56 10 MG Fluticasone Propionate (Flonase) 1 spray DAILY 11/21/16 09:00 11/25/16 07:58 1 SPRAY Furosemide (Lasix) 20 mg 08,14 11/21/16 08:00 11/25/16 07:56 20 MG Albuterol/ Ipratropium (Duoneb) 3 ml BID PRN 11/20/16 22:00 11/23/16 19:50 3 ML Albuterol/ Ipratropium (Duoneb) 3 ml Q2HR PRN 11/20/16 22:00 11/24/16 16:18 3 ML Latanoprost (Xalatan) 1 drop HS 11/21/16 21:00 11/24/16 19:40 1 DROP Magnesium Oxide (Magox) 400 mg BID 11/21/16 09:00 11/25/16 07:57 400 MG Pantoprazole Sodium (Protonix) 40 mg DAILY 11/21/16 09:00 11/25/16 07:57 40 MG Polyethylene Glycol (Miralax) 17 g Q2D@09 11/21/16 09:00 11/25/16 07:57 17 G Potassium Chloride (Kdur) 20 meq BIDWM 11/21/16 08:00 11/25/16 07:56 20 MEQ Miscellaneous Medication (May use PRN orders) 1 PRN PRN 11/20/16 22:00 Haloperidol (Haldol) 0.5 mg Q6H PRN 11/20/16 22:00 11/21/16 19:02 DC 11/21/16 18:52 0.5 MG Lorazepam (Ativan) 0.5 mg Q6H PRN 11/20/16 22:00 11/21/16 18:52 0.5 MG Lorazepam (Ativan) 0.5 mg Q6H PRN 11/20/16 22:00 Haloperidol Lactate (Haldol 5 Mg/ml Inj) 0.5 mg Q6H PRN 11/20/16 22:00 11/21/16 19:02 DC Warfarin Sodium (Coumadin Protocol) NOTE 11/21/16 07:00 Warfarin Sodium (COUMADIN 2 mg) 2 mg NOON 11/21/16 12:00 11/21/16 12:30 DC 11/21/16 11:16 2 MG Carvedilol (Coreg) 25 mg BIDWM 11/21/16 10:45 11/25/16 07:56 25 MG Dorzolamide/ Timolol (Cosopt Ocumeter Plus) 1 drop DAILY 11/22/16 09:00 11/25/16 07:58 1 DROP Timolol Hemihydrate (Timoptic 0.5% Eye Drops) 1 drop BID 11/21/16 21:00 11/25/16 07:58 1 DROP Quetiapine Fumarate (Seroquel) 25 mg Q6HR PRN 11/21/16 19:00 11/22/16 18:12 DC 11/22/16 02:29 25 MG Quetiapine Fumarate (Seroquel) 12.5 mg HS 11/21/16 21:00 11/22/16 09:00 DC 11/21/16 19:07 12.5 MG Thiamine HCl (Vit. B1) 100 mg TID 11/22/16 09:00 11/25/16 07:56 100 MG Quetiapine Fumarate (Seroquel) 12.5 mg Q6HR PRN 11/22/16 18:15 11/22/16 23:50 12.5 MG Quetiapine Fumarate (Seroquel) 12.5 mg HS 11/22/16 21:00 11/24/16 19:40 12.5 MG Warfarin Sodium (COUMADIN 5 mg) 5 mg NOON 11/23/16 12:00 11/23/16 12:15 DC 11/23/16 12:08 5 MG Subjective Patient seen and chart examined. Nursing reports pt is doing well. Slept 8.5 hours and has a good appetite. No behaviors noted. On face to face the pt states he is feeling better. He is oriented x 2. [place] it was 2018. Mood is stable. Tolerating meds. Voices no concerns at this time Time of Service: 10:30 Start Time: 10:30 Stop Time: 10:45 Care >50% of this visit spent in counseling/coordination care. [facility] Exam Vitals Vital Signs Date Time Temp Pulse Resp B/P Pulse Ox O2 Delivery O2 Flow Rate FiO2 11/25/16 07:52 97.1 68 16 146/102 98 Nasal Cannula 2.00 Physical examination performed by the hospitalist. Height (Feet): 5 Height (Inches): 11.00 Mental Status Exam Muscle Strength/Tone: Normal Dressing: Casual Grooming: Good Attitude: Cooperative Motor Activity: Retardation Eye Contact: Fair Speech: Slowed Volume: Soft Rhythm: Appropriate Rhythm Sensory: Alert Orientation: Oriented to person, Oriented to place Mood: Neutral Affect: Congruent Rate of Thoughts: Delayed Thought Organization: [place] Associations: Intact Abstract Reasoning: Impaired, concrete Thought Content: Normal Perception/Psychotic: Hx psychosis,not current Attention Span/Concentration: Short Span Fund of Knowledge: Poor fund of knowledge Memory: Poor-immediate, Poor-recent Suicidal Ideation: None Homicidal Ideation: None Insight: Fair Judgment: Fair Impulse Control: Fair Laboratory Tests Test 11/24/16 17:04 11/25/16 05:26 Adenovirus (PCR) Negative Bordetella parapertussis DNA (PCR) Negative Chlamydia pneumoniae DNA (PCR) Negative Coronavirus Type OC43 (PCR) Negative Coronavirus Type HKU1 (PCR) Negative Coronavirus Type 229E (PCR) Negative Coronavirus Type NL63 (PCR) Negative Human Metapneumovirus (PCR) Negative Influenza Virus Type A (PCR) Negative Influenza Virus Type B (PCR) Negative Mycoplasma pneumoniae (PCR) Negative Parainfluenza Type 1 (PCR) Negative Parainfluenza Type 2 (PCR) Negative Parainfluenza Type 3 (PCR) Negative Parainfluenza Type 4 (PCR) Negative Respiratory Syncytial Virus (PCR) Negative Enterovirus/Rhinovirus (PCR) Negative White Blood Count 9.5T/MM3 Red Blood Count 3.90M/MM3 Hemoglobin 11.0GM/DL Hematocrit 34.1% Mean Corpuscular Volume 87.4UM3 Mean Corpuscular Hemoglobin 28.2UUG Mean Corpuscular Hemoglobin Concent 32.3GM/DL RDW Standard Deviation 56.9FL Platelet Count 249T/MM3 Mean Platelet Volume 10.2UM3 Immature Granulocyte % (Auto) 0.2% Neutrophils (%) (Auto) 80.5% Lymphocytes (%) (Auto) 9.3% Monocytes (%) (Auto) 8.7% Eosinophils (%) (Auto) 1.2% Basophils (%) (Auto) 0.1% Absolute Immature Granulocyte (auto 0.02T/MM3 Absolute Neutrophils (auto) 7.7T/MM3 Absolute Lymphocytes (auto) 0.9T/MM3 Absolute Monocytes (auto) 0.8T/MM3 Absolute Eosinophils (auto) 0.1T/MM3 Absolute Basophils (auto) 0.0T/MM3 Prothromb Time International Ratio 2.51 Turbidity < 20 Sodium Level 140MEQ/L Potassium Level 3.9MEQ/L Chloride Level 104MEQ/L Carbon Dioxide Level 27MEQ/L Anion Gap 9MEQ/L Blood Urea Nitrogen 22.0MG/DL Creatinine 0.9MG/DL Glomerular Filtration Rate Calc 82 BUN/Creatinine Ratio 24RATIO Glucose Level 108MG/DL Calculated Osmolality 273MOSM/KG Calcium Level 8.9MG/DL Icterus Index < 2 Chemistry Specimen Hemolysis < 15 Assessment and Plan (1) 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 Plan: -Admit to [facility]. Obtain Vitamin B12 and folate. Observe patient in the unit. 11/21/16: Seroquel 12.5mg po qhs. Thiamine 100mg TID. 11/21/16: Cont Seroquel 12.5mg and also change PRN Seroquel to 12.5mg q6 prn agitation 11/22/16: Continue current care 3/11/17 Continue current care 11/25/16 Continue current care Cont. current psych. meds EDWAR ADDISON MD Nov 25, 2016 11:23
--- NOTE | 2016-11-25 11:26 | NUR ---
status pt alert and oriented to person and place. thought today was saturday. ate 100% of breakfast and took am meds with no issues. pt is an assist of 2 with transfers. pt is pleasant and cooperative with cares. has a flat affect. pt stated that the voices are minimal this am. states that the voices are just repeating what he is saying and then they go away. denies any pain or discomfort. will continue to monitor.
[2016-11-25] MEDS ORDERED: WARFARIN 3 MG TABLET PO ONE (12:00)
--- NOTE | 2016-11-25 15:18 | PNPDOC ---
MADDISON PEREZ BOBTAIL DRIVER 11/25/16 1511: Subjective Date DATE: 11/25/16 TIME: 15:08 Subjective New is seen today in follow up. He is resting quietly. No SOA or cough observed. Chart is reviewed for collateral information- I did not attempt to wake pt. during his exam. Objective Vital Signs Vital signs Vital Signs Date Time Temp Pulse Resp B/P Pulse Ox O2 Delivery O2 Flow Rate FiO2 11/25/16 07:52 97.1 68 16 146/102 98 Nasal Cannula 2.00 Height (Feet): 5 Height (Inches): 11.00 Weight (Kilograms): 88.600 General General Appearance: No Acute Distress Neck (Brief) Neck: FOUND: midline, NOT FOUND: JVD, nuchal rigidity, spasm Respiratory (Brief) Respiratory: FOUND: clear all sullivan, equal bilaterally, symmetrical, NOT FOUND : rales, wheezes Comments Diminished in bases. Cardiovascular (Brief) Cardiac: FOUND: regular rate, NOT FOUND: pedal edema, regular rhythm Abdomen (Brief) Abdominal: FOUND: BS normo active x4, soft, NOT FOUND: distended, tender Extremities (Brief) Extremity : Extremity Finding: NOT FOUND: edema Integumentary (Brief) Integumentary: FOUND: dry, pink, warm Laboratory Laboratory Laboratory Tests 11/25/16 05:26 Laboratory Tests 11/25/16 05:26 Radiology CXR Impression: Slightly improved pneumonia and decreasing edema. 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 LV function at the lower limits of normal to mildly reduced with ejection fraction of about 45%-50%. 2. Biatrial dilation. 3. Mitral annulus calcification with mild mitral regurgitation. 4. Aortic sclerosis with trace of aortic insufficiency. 5. Mild tricuspid regurgitation with normal estimated pulmonary artery systolic pressure of 24. 6. Left ventricular hypertrophy. 7. Small pericardial effusion with no echocardiographic evidence of tamponade. Plan/Intensity of Service 11/25/16- Pt. was reporting an increase in SOA yesterday. Note is reviewed. His CXR still shows infiltrate and edema, but is slowly improving. Increase Lasix to 40am, 20pm, continue current KCL. BP should support. Clinda to finish today- observe progress off the antibiotics. Is wearing O2 for comfort. Appears to have some atelectasis- increase nebs to BID and PRN. repeat labs and CXR-2 view in AM to better visualize what is going on in the lung. Chronic AFib on Warfarin- Pharmacy monitoring. Continue supportive care via primary team for psychiatric concerns. Chart is reviewed. Code Status Do Not Resuscitate Hospital Course Summary Disclaimer The hospital course summary below is not to be considered part of the above Progress Note. Hospital Course Summary 11/21/16 Agree with admission to [facility] for ongoing psychiatric care and treatment recommendations It is reported that patient has have a significant cognitive decline over the past 6 months. It is unclear regarding the length at which patient has had tremor/rigidity. He did have psychosis and was prescribed Zyprexa initially. However, this has been held since admission to the hospital. PT was consulted given that patient is requiring a lift for transfers. It is unclear if this is patient's baseline. Noted to have a cough as well as increase in WBC count today to 13.7 from 8.9 yesterday. Will recheck a Chest Xray today. Will also recheck UA to rule out infection Continues on Clindamycin antibiotic for treatment of Pneumonia. End date for 2 week course. INR today is 1.94, Continue with Coumadin daily via pharmacy dosing/management. Will give one time dose of oral potassium supplementation given mild hypokalemia of 3.5 Continue with Coreg 25mg BID for rate control Recheck CBC and BMP tomorrow 11/22/16 Appears to be less anxious and agitated this morning following dose of Seroquel overnight. WBC count continues to be mildly elevated. Again asked nursing staff to obtain a urinalysis that was ordered yesterday. Continues on Clindamycin antibiotic for treatment of Pneumonia. End date for 2 week course. Blood pressure continues to be intermittently elevated. Continue on Coreg 25 twice a day, will continue to monitor Hypokalemia, improved following oral supplementation. Recheck CBC and BMP tomorrow 11/24/16: Edwin. Nursing reported that New was complaining of feeling short of breath today with pulse ox 100% on room air. he was started on supplemental oxygen for comfort. Lung sounds revealed rhonchi initially which cleared with self forced cough revealing bilateral basilar crackles. He continues on clindamycin for prior pneumonia with treatment to be complete tomorrow (11/25/16). Will repeat CXR and monitor closely for signs of deterioration. Continue with psychiatric care per Dr. Dixon. Continue to provide safe and supportive environment. No new labs. Previous WBC trending down. Will recheck CBC and BMP in AM to monitor blood counts, electrolytes and renal function In light of edema, will monitor daily weights for signs of fluid over load. UA on 11/22 was unremarkable. Blood pressure stable. Continue with treatment. Mucinex added for mucolytic. 11/25/16- Pt. was reporting an increase in SOA yesterday. Note is reviewed. His CXR still shows infiltrate and edema, but is slowly improving. Increase Lasix to 40am, 20pm, continue current KCL. BP should support. Clinda to finish today- observe progress off the antibiotics. Is wearing O2 for comfort. Appears to have some atelectasis- increase nebs to BID and PRN. repeat labs and CXR-2 view in AM to better visualize what is going on in the lung. Chronic AFib on Warfarin- Pharmacy monitoring. Continue supportive care via primary team for psychiatric concerns. Chart is reviewed. MEETA DOWD MD 11/25/16 [id number]: Assessment & Plan Assessment I have independently evaluated and examined this patient. I reviewed the chart, the patient's history, and the BOBTAIL DRIVER's documented findings as above. We discussed and formulated the assessment and plan as above with additions as below: Mr. Garay was seen resting in the day room. He reports his breathing is getting better and the shaking he had on admission has stopped. Knee pain is better per patient report that he continues to have trouble with his shoulders. Nursing reports that oxygen is being used for comfort and review of records indicates 1 recent oxygen saturation of 90% on room air although the vast majority have been in the upper 90s. Respirations are nonlabored although air flow is diminished. Breath sounds are clear anteriorly and laterally. Cardiac rhythm is irregular rate this no tremor in the arms at rest but motor tone is increased and there is cogwheeling at the wrists with repetitive movement. Low-grade tachycardia often present. INR 2.51 today-dose decreased from 4 mg to 3 mg Oxygen decreased to 1 L based on saturations, recent chest x-rays reviewed by myself-yesterday's clearly improved from several days earlier. Given improvement and don't believe chest x-ray needs to be repeated tomorrow and can discontinue antibiotics as scheduled with follow-up chest x-ray later in the week or if clinically stable can delay repeat imaging for 1-2 weeks. Plan/Intensity of Service Chest x-rays reviewed, laboratory data reviewed, discussed with nursing. High- risk medications in use-therapeutic warfarin. MADDISON PEREZ APRN Nov 25, 2016 15:11 MEETA DOWD MD Nov 25, 2016 17:26
[2016-11-25 16:09] VITALS: BP 142/84; PULSE 96; RESP 18; TEMP 97.8; O2SAT 98
--- NOTE | 2016-11-25 17:53 | NUR ---
summary pt has been very pleasant and cooperative all shift. took all medications. ate 100% of supper. denies voices at this time. no agitation, aggression or anxiety noted. talked to his daughter this afternoon. conversation went well. no prn's given this shift.
[2016-11-25 19:30] VITALS: O2SAT 98
[2016-11-25] MEDS: ALBUTEROL/IPRATROPIUM INHAL. 2.5mg-0.5mg/3ml Neb. AEROSOL SCH (19:45)
[2016-11-25] MEDS: ATORVASTATIN 40 MG TABLET PO SCH (20:09)
[2016-11-25] MEDS: QUETIAPINE 25 MG TABLET PO SCH (20:10)
[2016-11-25] MEDS: LATANOPROST 0.005% EYE DROPS 2.5 ML BOTTLE BOTH EYES SCH (20:11)
[2016-11-25 22:09] VITALS: BP 130/90; PULSE 66; RESP 20; TEMP 98.4; O2SAT 94
--- NOTE | 2016-11-26 00:45 | NUR ---
Status Pt. is sitting in the dayroom watching tv on approach. Pt. takes meds crushed in pudding without difficulty. Pt. denies hearing voices. No aggression or agitation noted. Pt. transfers with 2person assist pivot to wheelchair. Pt. is pleasant and compliant. Pt. is continent of bladder. Pt. is resting in bed with the bed alarm activated and SR up x2.
--- NOTE | 2016-11-26 04:45 | NUR ---
Chart Check 24 hour chart check completed
[2016-11-26 05:56] LABS: BASOPHILS % (AUTO) 0.1 % (0-2); EOSINOPHILS # (AUTO) 0.2 T/MM3 (0-0.5); EOSINOPHILS % (AUTO) 1.7 % (0-4); HCT - HEMATOCRIT 32.7 % (41-53); HGB - HEMOGLOBIN 10.6 GM/DL (13.5-17.5); IMMATURE GRANULOCYTE # (AUTO) 0.02 T/MM3 (0.00-0.03); IMMATURE GRANULOCYTE % (AUTO) 0.2 % (0.0-0.5); LYMPHOCYTES # (AUTO) 0.9 T/MM3 (1-4.8); MEAN CORPUSCULAR HGB 28.5 UUG (26-34); MEAN CORPUSCULAR HGB CONC(MCHC 32.4 GM/DL (31-37); MEAN CORPUSCULAR VOLUME 87.9 UM3 (80-100); MEAN PLATELET VOLUME 10.1 UM3 (9.4-12.4); MONOCYTES # (AUTO) 0.9 T/MM3 (0-0.8); MONOCYTES % (AUTO) 9.8 % (0-9.0); NEUTROPHILS #(AUTO)-ABSOLUTE 6.8 T/MM3 (1.8-7.7); NEUTROPHILS % (AUTO) 78.2 % (33-66); RED BLOOD COUNT 3.72 M/MM3 (4.50-5.90); WBC - WHITE BLOOD COUNT 8.7 T/MM3 (4.5-11.0)
[2016-11-26 06:01] LABS: INR 2.73 (0.76-1.04); PROTHROMBIN TIME 29.8 SEC (9.31-12.49)
[2016-11-26 06:03] LABS: ALBUMIN 2.9 G/DL (3.5-5.0); ALKALINE PHOSPHATASE 66 U/L (38-126); ALT (SGPT) 45 U/L (21-72); ANION GAP 6 MEQ/L (5-15); AST (SGOT) 18 U/L (17-59); BUN/CREATININE RATIO 23 RATIO (6-26); CHLORIDE 105 MEQ/L (98-107); CO2 - CARBON DIOXIDE 29 MEQ/L (22-30); CREATININE 0.8 MG/DL (0.8-1.5); GLOMERULAR FILTRATION RATE 93; GLUCOSE 92 MG/DL (75-110); POTASSIUM 3.5 MEQ/L (3.6-5); SODIUM 140 MEQ/L (134-144); TOTAL PROTEIN 5.7 G/DL (6.3-8.2)
[2016-11-26 06:12] LABS: PROBNP 2240 PG/ML (0-175)
[2016-11-26] MEDS: ALBUTEROL/IPRATROPIUM INHAL. 2.5mg-0.5mg/3ml Neb. AEROSOL SCH ×2 (06:30→19:42)
[2016-11-26 06:47] VITALS: O2SAT 98
--- NOTE | 2016-11-26 07:16 | NUR ---
Summary Pt. slept 8 hours this shift. Pt. is continent of bladder. Pt. transfers with 2 person assist. Pt. denies hearing voices. Pt. does complain of SOA and prn breathing treatment is given by RT. No prn meds given. Pt. is resting in bed with bed alarm activated and SR up x2.
[2016-11-26] MEDS: CILOSTAZOL 50 MG TABLET PO SCH (08:45)
[2016-11-26] MEDS: ASPIRIN 81 MG CHEWABLE TABLET PO SCH (08:45)
[2016-11-26] MEDS: FUROSEMIDE 40 MG TABLET PO SCH (08:45)
[2016-11-26] MEDS: POTASSIUM CHLORIDE 20 MEQ TABLET PO SCH ×2 (08:45→17:05)
[2016-11-26] MEDS: CARVEDILOL 25 MG TABLET PO SCH ×3 (08:45→20:52)
[2016-11-26] MEDS: TIMOLOL EYE BOTH EYES SCH ×2 (08:46→20:53)
[2016-11-26] MEDS: ESCITALOPRAM 10 MG TABLET PO SCH (08:46)
[2016-11-26] MEDS: THIAMINE 100 MG TABLET PO SCH ×3 (08:46→20:52)
[2016-11-26] MEDS: MAGNESIUM OXIDE 400 MG TABLET PO SCH ×2 (08:46→20:52)
[2016-11-26] MEDS: DORZOLAMIDE BOTH EYES SCH ×2 (08:46→20:53)
[2016-11-26] MEDS: TIMOLOL 0.5% EYE DROPS 5ml BOTH EYES SCH ×3 (08:46→20:55)
[2016-11-26] MEDS: PANTOPRAZOLE 40 MG TABLET PO SCH (08:46)
[2016-11-26] MEDS: FLUTICASONE NASAL SPRAY 50 MCG EA NOSTRIL SCH (08:47)
[2016-11-26 08:52] VITALS: BP 152/98; PULSE 111; RESP 16; TEMP 97.2; O2SAT 90
--- NOTE | 2016-11-26 10:16 | NUR ---
COUMADIN CONSULT (Recurring): Today's INR = 2.73. Will give Warfarin 3 mg today. Will continue to monitor & make adjustments accordingly. Thank you.
--- NOTE | 2016-11-26 10:30 | NUR ---
GROUNDSKEEPING MAINTENANCE--AM GROUP Pt. was present and passively engaged in psychoeducational group facilitated by [facility]. Topic was on feeling appreciative for the positive aspects of life. All attendees were asked to identify one thing they are grateful for in their life. Pt. had his eyes closed and did not attempt to respond the question. He is very [place] and being in groups appears to make him more anxious because he cannot hear what is going on. Ended group by listening to a variety of songs. Pt. remained calm with euthymic mood and flat affect.
[2016-11-26] MEDS ORDERED: WARFARIN 3 MG TABLET PO SCH (12:00)
[2016-11-26] MEDS: ALBUTEROL/IPRATROPIUM INHAL. 2.5mg-0.5mg/3ml Neb. AEROSOL PRN (13:27)
--- NOTE | 2016-11-26 14:40 | NUR ---
Status Pt is cooperative with cares and assessment. Pt does get anxious, states he can't breath very well. O2 stats greater than 90 on 1L/NC. Pt given prn breathing treatments. Pt is now resting in recliner. Ate 100% of breakfast and lunch. No prns given. No behaviors noted.
[2016-11-26] MEDS: FUROSEMIDE 20 MG TABLET PO SCH (14:53)
[2016-11-26] MEDS: LORAZEPAM 0.5 MG TABLET PO PRN (14:59)
--- NOTE | 2016-11-26 15:00 | NUR ---
PRN/anxiety Pt states he feels like he can't breath. Pt had a breathing tx not to long ago. Pt given ativan to help calm him. O2 stats 95% on RA. Pt denies pain will continue to monitor.
--- NOTE | 2016-11-26 15:36 | GENPN ---
[facility] Subjective Date DATE: 11/26/16 TIME: 15:30 Subjective/Severity of Illness Medications Current Medications Medications (Trade) Dose Ordered Sig/Lilly Start Time Stop Time Status Last Admin Dose Admin Acetaminophen (Tylenol Regular Strength) 1-2 tabs PRN for pain Q5H PRN 11/20/16 22:00 11/24/16 17:09 650 MG Aspirin (ASA) 81 mg DAILY 11/21/16 09:00 11/26/16 08:45 81 MG Atorvastatin Calcium (LIPITOR 40 mg) 40 mg HS 11/21/16 21:00 11/25/16 20:09 40 MG Cilostazol (Pletal 50 Mg) 50 mg ACB30 11/21/16 07:30 11/26/16 08:45 50 MG Clindamycin HCl (Cleocin) 300 mg TID 11/21/16 09:00 11/25/16 21:01 DC 11/25/16 20:08 300 MG Escitalopram Oxalate (LEXAPRO 10mg) 10 mg DAILY 11/21/16 09:00 11/26/16 08:46 10 MG Fluticasone Propionate (Flonase) 1 spray DAILY 11/21/16 09:00 11/26/16 08:47 1 SPRAY Furosemide (Lasix) 20 mg 08,14 11/21/16 08:00 11/25/16 15:19 DC 11/25/16 15:12 20 MG Albuterol/ Ipratropium (Duoneb) 3 ml BID PRN 11/20/16 22:00 11/25/16 15:19 DC 11/23/16 19:50 3 ML Albuterol/ Ipratropium (Duoneb) 3 ml Q2HR PRN 11/20/16 22:00 11/26/16 13:27 3 ML Latanoprost (Xalatan) 1 drop HS 11/21/16 21:00 11/25/16 20:11 1 DROP Magnesium Oxide (Magox) 400 mg BID 11/21/16 09:00 11/26/16 08:46 400 MG Pantoprazole Sodium (Protonix) 40 mg DAILY 11/21/16 09:00 11/26/16 08:46 40 MG Polyethylene Glycol (Miralax) 17 g Q2D@09 11/21/16 09:00 11/25/16 07:57 17 G Potassium Chloride (Kdur) 20 meq BIDWM 11/21/16 08:00 11/26/16 08:45 20 MEQ Miscellaneous Medication (May use PRN orders) 1 PRN PRN 11/20/16 22:00 Haloperidol (Haldol) 0.5 mg Q6H PRN 11/20/16 22:00 11/21/16 19:02 DC 11/21/16 18:52 0.5 MG Lorazepam (Ativan) 0.5 mg Q6H PRN 11/20/16 22:00 11/26/16 14:59 0.5 MG Lorazepam (Ativan) 0.5 mg Q6H PRN 11/20/16 22:00 Haloperidol Lactate (Haldol 5 Mg/ml Inj) 0.5 mg Q6H PRN 11/20/16 22:00 11/21/16 19:02 DC Warfarin Sodium (Coumadin Protocol) NOTE 11/21/16 07:00 Warfarin Sodium (COUMADIN 2 mg) 2 mg NOON 11/21/16 12:00 11/21/16 12:30 DC 11/21/16 11:16 2 MG Carvedilol (Coreg) 25 mg BIDWM 11/21/16 10:45 11/26/16 08:45 25 MG Dorzolamide/ Timolol (Cosopt Ocumeter Plus) 1 drop DAILY 11/22/16 09:00 11/26/16 08:46 1 DROP Timolol Hemihydrate (Timoptic 0.5% Eye Drops) 1 drop BID 11/21/16 21:00 11/26/16 08:46 1 DROP Quetiapine Fumarate (Seroquel) 25 mg Q6HR PRN 11/21/16 19:00 11/22/16 18:12 DC 11/22/16 02:29 25 MG Quetiapine Fumarate (Seroquel) 12.5 mg HS 11/21/16 21:00 11/22/16 09:00 DC 11/21/16 19:07 12.5 MG Thiamine HCl (Vit. B1) 100 mg TID 11/22/16 09:00 11/26/16 14:53 100 MG Quetiapine Fumarate (Seroquel) 12.5 mg Q6HR PRN 11/22/16 18:15 11/22/16 23:50 12.5 MG Quetiapine Fumarate (Seroquel) 12.5 mg HS 11/22/16 21:00 11/25/16 20:10 12.5 MG Warfarin Sodium (COUMADIN 5 mg) 5 mg NOON 11/23/16 12:00 11/23/16 12:15 DC 11/23/16 12:08 5 MG Albuterol/ Ipratropium (Duoneb) 3 ml BID 11/25/16 21:00 11/25/16 19:45 3 ML Furosemide (Lasix) 40 mg DAILY 11/26/16 09:00 11/26/16 08:45 40 MG Furosemide (Lasix) 20 mg 15 11/25/16 15:22 11/26/16 14:53 20 MG Warfarin Sodium (COUMADIN 3 mg) 3 mg NOON 11/26/16 12:00 11/26/16 12:30 DC 11/26/16 12:01 3 MG Subjective Patient seen and chart reviewed. Case discussed with treatment team. Patient has improved since admission but complains of anxiety, worse with SOA and frequently leans forward to be able to breathe better. Patient has been adherent with his medications otherwise. Patient reports the above as well and that this is his primary complaint. He reports that his mood is pretty good otherwise. He denies any paranoia and no delusions elicited. He does report hearing background music but it is relatively mild in intensity, not inappropriate in context. He denies any command hallucinations. He does complain of difficulty sleeping though staff have documented that he slept 8 hours last night. Patient is significantly less rigid than upon admission but slight tremor still present. Patient denies any SI, HI. Appetite is good. Patient denies any adverse side effects due to medications or other concerns. VSS. No new labs. Psychotropic PRNs required in the past 24 hours: none. Time of Service: 10:30 Start Time: 13:10 Stop Time: 13:30 Care >50% of this visit spent in counseling/coordination care. [facility] Exam Vitals Vital Signs Date Time Temp Pulse Resp B/P Pulse Ox O2 Delivery O2 Flow Rate FiO2 11/26/16 13:28 72 11/26/16 13:28 18 11/26/16 08:52 97.2 152/98 90 Nasal Cannula 1.00 Physical examination performed by the hospitalist. Height (Feet): 5 Height (Inches): 11.00 Mental Status Exam Muscle Strength/Tone: Normal (significantly less rigid than upon admission) Dressing: Casual Grooming: Fair Attitude: Cooperative Motor Activity: Tremors (slight) Eye Contact: Fair Speech: Normal Volume: Normal Rhythm: Appropriate Rhythm Sensory: Alert Orientation: Disoriented to time, Oriented to person Mood: Neutral Affect: Blunted Rate of Thoughts: Delayed Thought Organization: Organized Associations: Intact Abstract Reasoning: Poor abstract reasoning Thought Content: Somatic Concerns, Other (Anxiety) Perception/Psychotic: Psychotic Current Hallucinations: Auditory (not threatening, command or inappropriate in nature - believed to be near baseline) Attention Span/Concentration: Distractable Language: Naming Intact Fund of Knowledge: Other (Decreased from baseline) Memory: Poor-recent Suicidal Ideation: Denies Homicidal Ideation: Denies Insight: Limited Judgment: Limited Impulse Control: Fair Laboratory Tests Test 11/26/16 05:37 White Blood Count 8.7T/MM3 Red Blood Count 3.72M/MM3 Hemoglobin 10.6GM/DL Hematocrit 32.7% Mean Corpuscular Volume 87.9UM3 Mean Corpuscular Hemoglobin 28.5UUG Mean Corpuscular Hemoglobin Concent 32.4GM/DL RDW Standard Deviation 56.9FL Platelet Count 245T/MM3 Mean Platelet Volume 10.1UM3 Immature Granulocyte % (Auto) 0.2% Neutrophils (%) (Auto) 78.2% Lymphocytes (%) (Auto) 10.0% Monocytes (%) (Auto) 9.8% Eosinophils (%) (Auto) 1.7% Basophils (%) (Auto) 0.1% Absolute Immature Granulocyte (auto 0.02T/MM3 Absolute Neutrophils (auto) 6.8T/MM3 Absolute Lymphocytes (auto) 0.9T/MM3 Absolute Monocytes (auto) 0.9T/MM3 Absolute Eosinophils (auto) 0.2T/MM3 Absolute Basophils (auto) 0.0T/MM3 Prothromb Time International Ratio 2.73 Turbidity < 20 Sodium Level 140MEQ/L Potassium Level 3.5MEQ/L Chloride Level 105MEQ/L Carbon Dioxide Level 29MEQ/L Anion Gap 6MEQ/L Blood Urea Nitrogen 18.0MG/DL Creatinine 0.8MG/DL Glomerular Filtration Rate Calc 93 BUN/Creatinine Ratio 23RATIO Glucose Level 92MG/DL Calculated Osmolality 271MOSM/KG Calcium Level 9.0MG/DL Total Bilirubin 1.20MG/DL Icterus Index < 2 Aspartate Amino Transf (AST/SGOT) 18U/L Alanine Aminotransferase (ALT/SGPT) 45U/L Alkaline Phosphatase 66U/L AN-Ytw-A-Type Natriuretic Peptide 2240PG/ML Total Protein 5.7G/DL Albumin 2.9G/DL Globulin 2.8G/DL Albumin/Globulin Ratio 1.0RATIO Chemistry Specimen Hemolysis < 15 Assessment and Plan (1) 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 Plan: -Admit to [facility]. Obtain Vitamin B12 and folate. Observe patient in the unit. 11/21/16: Seroquel 12.5mg po qhs. Thiamine 100mg TID. 11/21/16: Cont Seroquel 12.5mg and also change PRN Seroquel to 12.5mg q6 prn agitation 11/22/16: Continue current care 11/24/16 Continue current care 11/25/16 Continue current care 11/26/16: Schedule Seroquel 12.5mg PO q in AM in addition to HS Cont. current psych. meds Schedule Seroquel 12.5mg PO q AM in addition to HS. Monitor patient's mood, behavior, response to treatment. SUNNY PATEL MD Nov 26, 2016 15:33
[2016-11-26 16:14] VITALS: BP 120/66; PULSE 85; RESP 16; TEMP 98.2; O2SAT 91
--- NOTE | 2016-11-26 17:39 | NUR ---
Shift Summary Pt is eating supper at this time. Ativan did seem to help calm pt. Pt has had no behaviors. Pt takes Meds crushed in pudding without difficulty.
[2016-11-26] MEDS: QUETIAPINE 25 MG TABLET PO SCH (20:51)
[2016-11-26] MEDS: ATORVASTATIN 40 MG TABLET PO SCH (20:57)
[2016-11-26] MEDS: LATANOPROST 0.005% EYE DROPS 2.5 ML BOTTLE BOTH EYES SCH (20:57)
[2016-11-26 21:16] VITALS: BP 130/80; PULSE 95; RESP 18; TEMP 97.3; O2SAT 93
--- NOTE | 2016-11-27 00:30 | NUR ---
Status: Patient in bed. Head of bed at an incline due to SOB. Wearing O2 2 liters per NC. Respiratory therapy here early in shift for breathing treatment. Patient tolerated well. Patient was talking in sleep. Bed alarm on. Patient hard of hearing. Deaf in left ear and can only hear some in right. No reports or observation of auditory/visual hallucinations. Patient calm and cooperative with assessment, took medications crushed in pudding. Patient required no PRN's tonight. Patient resting comfortably with side rails up. Patient has incentive spirometer in room.
--- NOTE | 2016-11-27 05:24 | NUR ---
Chart Check 24 hour chart check completed
[2016-11-27] MEDS ORDERED: ACETAMINOPHEN 325 MG TABLET PO PRN (06:30)
[2016-11-27 06:40] VITALS: O2SAT 99
[2016-11-27] MEDS: ALBUTEROL/IPRATROPIUM INHAL. 2.5mg-0.5mg/3ml Neb. AEROSOL SCH ×2 (06:40→20:02)
[2016-11-27] MEDS: ACETAMINOPHEN 325 MG TABLET PO PRN ×3 (06:40→18:09)
[2016-11-27 06:59] VITALS: BP 136/71; PULSE 92; RESP 22; TEMP 97.9; O2SAT 97
--- NOTE | 2016-11-27 07:11 | NUR ---
Status: Patient is anxious and reports pain in chest of 6. Vitals taken. Patient given Tylonol 650mg at 0650. Respiratory therapy called and breathing treatment X one. Patient alert. Denied hallucinations. Reports he's just going to . Patient denies SI/HI at present. Patient settled down and requested lights off. Patient resting quietly.
[2016-11-27 08:00] VITALS: PULSE 92
[2016-11-27] MEDS: ASPIRIN 81 MG CHEWABLE TABLET PO SCH (09:11)
[2016-11-27] MEDS: MAGNESIUM OXIDE 400 MG TABLET PO SCH ×2 (09:11→20:26)
[2016-11-27] MEDS: QUETIAPINE 25 MG TABLET PO SCH ×2 (09:14→20:27)
[2016-11-27] MEDS: PANTOPRAZOLE 40 MG TABLET PO SCH (09:15)
[2016-11-27] MEDS: POTASSIUM CHLORIDE 20 MEQ TABLET PO SCH ×2 (09:15→17:09)
[2016-11-27] MEDS: THIAMINE 100 MG TABLET PO SCH ×3 (09:15→20:27)
[2016-11-27] MEDS: ESCITALOPRAM 10 MG TABLET PO SCH (09:16)
[2016-11-27 09:17] LABS: INR 2.88 (0.76-1.04); PROTHROMBIN TIME 31.4 SEC (9.31-12.49)
[2016-11-27] MEDS: POLYETHYL.GLYCOL 3350 PACKET 17gm PO SCH (09:17)
[2016-11-27] MEDS: CILOSTAZOL 50 MG TABLET PO SCH (09:17)
[2016-11-27] MEDS: FLUTICASONE NASAL SPRAY 50 MCG EA NOSTRIL SCH (09:20)
[2016-11-27] MEDS: FUROSEMIDE 40 MG TABLET PO SCH (09:30)
--- NOTE | 2016-11-27 09:30 | NUR ---
COUMADIN CONSULT (Recurring): Today's INR = 2.88. Will give Warfarin 2.5 mg today. Will continue to monitor & make adjustments accordingly. Thank you.
--- NOTE | 2016-11-27 11:32 | PNPDOC ---
Subjective Date DATE: 11/27/16 TIME: 11:23 Subjective New is seen today on the [facility] for f/u schizophrenia. He is lying in his room at the time of this visit. He is wearing oxygen at 2 L. Does not appear in any acute respiratory distress. Afebrile. Nurses do report trying to get him to use incentive spirometer but he cannot use it properly. Objective Vital Signs Vital signs Vital Signs Date Time Temp Pulse Resp B/P Pulse Ox O2 Delivery O2 Flow Rate FiO2 11/27/16 06:59 97.9 92 22 136/71 97 Nasal Cannula 2.00 Height (Feet): 5 Height (Inches): 11.00 Weight (Kilograms): 88.200 General Comments sleeping, eyes open to verbal stimuli Respiratory (Brief) Comments mostly clear anteriorly, audible wet sounds seem to clear with a slight cough Cardiovascular (Brief) Cardiac: FOUND: other (irregular) Comments Pectus deformity is noted Abdomen (Brief) Abdominal: FOUND: BS normo active x4, soft Extremities (Brief) Extremity : Side: Bilateral Extremity: leg Extremity Finding: NOT FOUND: edema Integumentary (Brief) Integumentary: FOUND: dry, pink, warm Psychiatric (Brief) Comments sleeping-rouses to verbal stimuli Laboratory Laboratory Laboratory Tests 11/26/16 05:37 Laboratory Tests 11/26/16 05:37 Assessment & Plan Problems: (1) Schizophrenia, unspecified Status: Chronic (2) Alzheimer's dementia without behavioral disturbance Status: Chronic (3) Ambulatory dysfunction Status: Chronic (4) Hypertension Status: Chronic (5) ASHD (arteriosclerotic heart disease) Status: Chronic (6) Hyperlipidemia Status: Chronic (7) GERD (gastroesophageal reflux disease) Status: Chronic (8) Atrial fibrillation, chronic Status: Chronic (9) CKD (chronic kidney disease) Status: Chronic (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 He is on oxygen at 2 L and sats are maintained in the 90s. Chest x-ray done on 11/26/2016 showed improving pulmonary edema and improving pneumonia. Antibiotics have been discontinued by hospitalist physician. It was recommended that patient have a repeat chest x- ray later this week or even consider pushing that out if remains clinically stable for another 1-2 weeks. Patient had an increased dose of Lasix 2 days ago with 40 mg now being given in the morning and 20 mg in the afternoon. Continue to follow potassium trending, this morning it was 3.5, he is being replaced with 20 mEq twice daily. BNP had been ordered for today and was 2248 which is better than the 3 previous readings we have on this patient. INR being monitored daily, this morning 2.73. Coumadin dosing per pharmacy. Psychiatric management per [facility] team. Code Status Do Not Resuscitate Hospital Course Summary Disclaimer The hospital course summary below is not to be considered part of the above Progress Note. Hospital Course Summary 11/21/16 Agree with admission to [facility] unit for ongoing psychiatric care and treatment recommendations It is reported that patient has have a significant cognitive decline over the past 6 months. It is unclear regarding the length at which patient has had tremor/rigidity. He did have psychosis and was prescribed Zyprexa initially. However, this has been held since admission to the hospital. PT was consulted given that patient is requiring a lift for transfers. It is unclear if this is patient's baseline. Noted to have a cough as well as increase in WBC count today to 13.7 from 8.9 yesterday. Will recheck a Chest Xray today. Will also recheck UA to rule out infection Continues on Clindamycin antibiotic for treatment of Pneumonia. End date for 2 week course. INR today is 1.94, Continue with Coumadin daily via pharmacy dosing/management. Will give one time dose of oral potassium supplementation given mild hypokalemia of 3.5 Continue with Coreg 25mg BID for rate control Recheck CBC and BMP tomorrow 11/22/16 Appears to be less anxious and agitated this morning following dose of Seroquel overnight. WBC count continues to be mildly elevated. Again asked nursing staff to obtain a urinalysis that was ordered yesterday. Continues on Clindamycin antibiotic for treatment of Pneumonia. End date for 2 week course. Blood pressure continues to be intermittently elevated. Continue on Coreg 25 twice a day, will continue to monitor Hypokalemia, improved following oral supplementation. Recheck CBC and BMP tomorrow 11/24/16: Edwin. Nursing reported that New was complaining of feeling short of breath today with pulse ox 100% on room air. he was started on supplemental oxygen for comfort. Lung sounds revealed rhonchi initially which cleared with self forced cough revealing bilateral basilar crackles. He continues on clindamycin for prior pneumonia with treatment to be complete tomorrow (11/25/16). Will repeat CXR and monitor closely for signs of deterioration. Continue with psychiatric care per Dr. Dixon. Continue to provide safe and supportive environment. No new labs. Previous WBC trending down. Will recheck CBC and BMP in AM to monitor blood counts, electrolytes and renal function In light of edema, will monitor daily weights for signs of fluid over load. UA on 11/22 was unremarkable. Blood pressure stable. Continue with treatment. Mucinex added for mucolytic. 11/25/16- Pt. was reporting an increase in SOA yesterday. Note is reviewed. His CXR still shows infiltrate and edema, but is slowly improving. Increase Lasix to 40am, 20pm, continue current KCL. BP should support. Clinda to finish today- observe progress off the antibiotics. Is wearing O2 for comfort. Appears to have some atelectasis- increase nebs to BID and PRN. repeat labs and CXR-2 view in AM to better visualize what is going on in the lung. Chronic AFib on Warfarin- Pharmacy monitoring. Continue supportive care via primary team for psychiatric concerns. Chart is reviewed. 11/27 Respiratory status seems to be slowly improving. He is on oxygen at 2 L and sats are maintained in the 90s. Chest x-ray done on 11/26/2016 showed improving pulmonary edema and improving pneumonia. Antibiotics have been discontinued by hospitalist physician. It was recommended that patient have a repeat chest x- ray later this week or even consider pushing that out if remains clinically stable for another 1-2 weeks. Patient had an increased dose of Lasix 2 days ago with 40 mg now being given in the morning and 20 mg in the afternoon. Continue to follow potassium trending, this morning it was 3.5, he is being replaced with 20 mEq twice daily. BNP had been ordered for today and was 2248 which is better than the 3 previous readings we have on this patient. INR being monitored daily, this morning 2.73. Coumadin dosing per pharmacy. Psychiatric management per [facility] team. NIKA SORIANO APRN Nov 27, 2016 11:26
[2016-11-27] MEDS ORDERED: WARFARIN 2.5 MG TABLET PO SCH (12:00)
[2016-11-27] MEDS: FUROSEMIDE 20 MG TABLET PO SCH (15:33)
[2016-11-27 16:58] VITALS: BP 131/78; PULSE 88; RESP 16; TEMP 98.1
[2016-11-27] MEDS: CARVEDILOL 25 MG TABLET PO SCH (17:09)
--- NOTE | 2016-11-27 18:15 | NUR ---
SUMMARY Pt has been cooperative with cares and assessment, compliant with medications, has been taking his medication crushed in chocolate pudding. Pt is able to verbalize needs, speech is clear and appropriate, he is [place], hears better on the right ear. Pt has been on continuous oxygen via NC 2L. Pt complained of pain on his right arm this morning, PRN tylenol 650 mg PO was given. During follow up Pt patient was sleep. Pt has been continent of urine and bowel today. He needs help to transfer x 2 assist pivot. No aggressive behaviors noted, no hallucinations noted. NO SI comments made by Pt this shift. Pt has been using Incentive spirometer several times today. Pt has a skin shear on the middle area of his bottom upper area, mepilex dressing applied. Pt slept 4 hr during this shift. Pt complained of pain on his arms this evening Tylenol 650 mg PO was given around 1800. Pt is out in the day room reading the newspaper. Pt denies needs or concerns at the moment.
[2016-11-27] MEDS: ATORVASTATIN 40 MG TABLET PO SCH (20:26)
[2016-11-27] MEDS: TIMOLOL 0.5% EYE DROPS 5ml BOTH EYES SCH (20:27)
[2016-11-27] MEDS: LATANOPROST 0.005% EYE DROPS 2.5 ML BOTTLE BOTH EYES SCH (20:27)
--- NOTE | 2016-11-27 21:27 | GENPN ---
[facility] Subjective Date DATE: 11/27/16 TIME: 16:05 Subjective/Severity of Illness Medications Current Medications Medications (Trade) Dose Ordered Sig/Lilly Start Time Stop Time Status Last Admin Dose Admin Acetaminophen (Tylenol Regular Strength) 1-2 tabs PRN for pain Q5H PRN 11/20/16 22:00 11/27/16 11:44 650 MG Aspirin (ASA) 81 mg DAILY 11/21/16 09:00 11/27/16 09:11 81 MG Atorvastatin Calcium (LIPITOR 40 mg) 40 mg HS 11/21/16 21:00 11/26/16 20:57 40 MG Cilostazol (Pletal 50 Mg) 50 mg ACB30 11/21/16 07:30 11/27/16 09:17 50 MG Clindamycin HCl (Cleocin) 300 mg TID 11/21/16 09:00 11/25/16 21:01 DC 11/25/16 20:08 300 MG Escitalopram Oxalate (LEXAPRO 10mg) 10 mg DAILY 11/21/16 09:00 11/27/16 09:16 10 MG Fluticasone Propionate (Flonase) 1 spray DAILY 11/21/16 09:00 11/27/16 09:20 1 SPRAY Furosemide (Lasix) 20 mg 14 11/21/16 08:00 11/25/16 15:19 DC 11/25/16 15:12 20 MG Albuterol/ Ipratropium (Duoneb) 3 ml BID PRN 11/20/16 22:00 11/25/16 15:19 DC 11/23/16 19:50 3 ML Albuterol/ Ipratropium (Duoneb) 3 ml Q2HR PRN 11/20/16 22:00 11/26/16 13:27 3 ML Latanoprost (Xalatan) 1 drop HS 11/21/16 21:00 11/26/16 20:57 1 DROP Magnesium Oxide (Magox) 400 mg BID 11/21/16 09:00 11/27/16 09:11 400 MG Pantoprazole Sodium (Protonix) 40 mg DAILY 11/21/16 09:00 11/27/16 09:15 40 MG Polyethylene Glycol (Miralax) 17 g Q2D@09 11/21/16 09:00 11/27/16 09:17 17 G Potassium Chloride (Kdur) 20 meq BIDWM 11/21/16 08:00 11/27/16 09:15 20 MEQ Miscellaneous Medication (May use PRN orders) 1 PRN PRN 11/20/16 22:00 Haloperidol (Haldol) 0.5 mg Q6H PRN 11/20/16 22:00 11/21/16 19:02 DC 11/21/16 18:52 0.5 MG Lorazepam (Ativan) 0.5 mg Q6H PRN 11/20/16 22:00 11/26/16 14:59 0.5 MG Lorazepam (Ativan) 0.5 mg Q6H PRN 11/20/16 22:00 Haloperidol Lactate (Haldol 5 Mg/ml Inj) 0.5 mg Q6H PRN 11/20/16 22:00 11/21/16 19:02 DC Warfarin Sodium (Coumadin Protocol) NOTE 11/21/16 07:00 Warfarin Sodium (COUMADIN 2 mg) 2 mg NOON 11/21/16 12:00 11/21/16 12:30 DC 11/21/16 11:16 2 MG Carvedilol (Coreg) 25 mg BIDWM 11/21/16 10:45 11/26/16 20:52 25 MG Dorzolamide/ Timolol (Cosopt Ocumeter Plus) 1 drop DAILY 11/22/16 09:00 11/26/16 20:53 1 DROP Timolol Hemihydrate (Timoptic 0.5% Eye Drops) 1 drop BID 11/21/16 21:00 11/26/16 20:55 1 DROP Quetiapine Fumarate (Seroquel) 25 mg Q6HR PRN 11/21/16 19:00 11/22/16 18:12 DC 11/22/16 02:29 25 MG Quetiapine Fumarate (Seroquel) 12.5 mg HS 11/21/16 21:00 11/22/16 09:00 DC 11/21/16 19:07 12.5 MG Thiamine HCl (Vit. B1) 100 mg TID 11/22/16 09:00 11/27/16 15:33 100 MG Quetiapine Fumarate (Seroquel) 12.5 mg Q6HR PRN 11/22/16 18:15 11/22/16 23:50 12.5 MG Quetiapine Fumarate (Seroquel) 12.5 mg HS 11/22/16 21:00 11/26/16 15:37 DC 11/25/16 20:10 12.5 MG Warfarin Sodium (COUMADIN 5 mg) 5 mg NOON 11/23/16 12:00 11/23/16 12:15 DC 11/23/16 12:08 5 MG Albuterol/ Ipratropium (Duoneb) 3 ml BID 11/25/16 21:00 11/27/16 06:40 3 ML Furosemide (Lasix) 40 mg DAILY 11/26/16 09:00 11/27/16 09:30 40 MG Furosemide (Lasix) 20 mg 15 11/25/16 15:22 11/27/16 15:33 20 MG Warfarin Sodium (COUMADIN 3 mg) 3 mg NOON 11/26/16 12:00 11/26/16 12:30 DC 11/26/16 12:01 3 MG Quetiapine Fumarate (Seroquel) 12.5 mg BID 11/26/16 21:00 11/27/16 09:14 12.5 MG Acetaminophen (Tylenol Regular Strength) 1-2 TABS Q5H PRN 11/27/16 06:30 Warfarin Sodium (COUMADIN 2.5 mg) 2.5 mg NOON 11/27/16 12:00 11/27/16 12:30 DC 11/27/16 11:46 2.5 MG Subjective Patient seen and chart reviewed. Patient sitting in dayroom with another male peer. He reports that his mood is good and his anxiety is not problematic currently, as he had complained of yesterday. He denies any current AH or paranoia, and no delusions elicited. However, patient is exhibiting significant thought delay - unclear whether this is due to psychotic thought blocking or cognitive impairment. He denies any command hallucinations. Patient did complain of episodic anxiety with pain this morning to staff. Patient is significantly less rigid than upon admission but slight tremor still present. Patient denies any SI, HI. Patient slept 8.25 hours overnight. Appetite is good. Patient denies any adverse side effects due to medications or other concerns. VSS. No new labs. Psychotropic PRNs required in the past 24 hours: Ativan 0.5mg PO on 11/26 at 14:59. Time of Service: 10:30 Start Time: 17:50 Stop Time: 18:10 Care >50% of this visit spent in counseling/coordination care. [facility] Exam Vitals Vital Signs Date Time Temp Pulse Resp B/P Pulse Ox O2 Delivery O2 Flow Rate FiO2 11/27/16 08:00 92 11/27/16 06:59 97.9 22 136/71 97 Nasal Cannula 2.00 Physical examination performed by the hospitalist. Height (Feet): 5 Height (Inches): 11.00 Mental Status Exam Muscle Strength/Tone: Other (Signficantly less stiff than upon admission, slight tremor still present) Dressing: Casual Grooming: Fair Attitude: Cooperative Motor Activity: Retardation, Tremors Eye Contact: Fair Speech: Slowed Volume: Normal Rhythm: Appropriate Rhythm (short responses) Sensory: Alert Orientation: Disoriented to time, Oriented to person, Oriented to place Mood: Neutral Affect: Blunted Rate of Thoughts: Delayed (thought blocking vs. cognitive impairment) Thought Organization: Organized Associations: Intact Abstract Reasoning: Poor abstract reasoning Thought Content: Other (No abnormal thought content elicited) Perception/Psychotic: Hx psychosis,not current, Other (Difficult to fully assess - patient denies, will continue to observe for possible thought blocking) Attention Span/Concentration: Inattentive Language: Naming Intact Fund of Knowledge: Other (Decreased from baseline) Memory: Poor-recent Suicidal Ideation: Denies Homicidal Ideation: Denies Insight: Limited Judgment: Limited Impulse Control: Fair Laboratory Tests Test 11/27/16 08:57 Prothromb Time International Ratio 2.88 Assessment and Plan (1) 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 Plan: -Admit to [facility]. Obtain Vitamin B12 and folate. Observe patient in the unit. 11/21/16: Seroquel 12.5mg po qhs. Thiamine 100mg TID. 11/21/16: Cont Seroquel 12.5mg and also change PRN Seroquel to 12.5mg q6 prn agitation 11/22/16: Continue current care 11/24/16 Continue current care 11/25/16 Continue current care 11/26/16: Schedule Seroquel 12.5mg PO q in AM in addition to HS 11/27/16: Continue current care; plan to repeat SLUMS. Cont. current psych. meds Plan to repeat SLUMS on 11/28/16. Monitor for possible thought blocking vs. delay due to cognitive impairment. Patient doing well overall. Monitor patient' s mood, behavior and response to treatment. SUNNY PATEL MD Nov 27, 2016 16:05
[2016-11-27 21:41] VITALS: PULSE 92
--- NOTE | 2016-11-27 23:52 | NUR ---
status: Patient was up in dayroom when this RN arrived, watching TV. Patient had dinner with assist, took his medication with compliance, crushed in chocolate pudding. Patient polite and pleasant. Will speak more when you talk so he can hear you in the right ear. Patient has no complaint of pain. Denies hallucinations at present. Patient is on continuous oxygen 2L per NC. Tolerates well. Patient is now calmly resting and bed alarm is on.
--- NOTE | 2016-11-28 | NUR ---
Chart Check 24 hour chart check completed
[2016-11-28 05:37] LABS: INR 2.76 (0.76-1.04); PROTHROMBIN TIME 30.1 SEC (9.31-12.49)
--- NOTE | 2016-11-28 06:15 | NUR ---
Summary: Patient slept through shift. 7.75. No c/o difficulty breathing. O2 on 2L per NC. Patients daughter called to ask how patient was doing. She lives in [place] and gave some history of patient and going through divorce. She reports patients did not want to pay for patient to go to [facility], so she filed for divorce and also tried to obtain DPOA with her patients step daughter, even though daughter has DPOA. Patient denies any pain. Patient reports that as soon as his divorce is done and finances figured out, that daughter wants patient to move to [place] around family. Patient is sleeping sound. Bed rails up times 2 and alarm for bed is on.
[2016-11-28] MEDS: CILOSTAZOL 50 MG TABLET PO SCH (08:00)
[2016-11-28] MEDS: CARVEDILOL 25 MG TABLET PO SCH ×2 (08:00→18:11)
[2016-11-28] MEDS: QUETIAPINE 25 MG TABLET PO SCH ×2 (08:01→19:42)
[2016-11-28] MEDS: MAGNESIUM OXIDE 400 MG TABLET PO SCH ×2 (08:01→19:42)
[2016-11-28] MEDS: ASPIRIN 81 MG CHEWABLE TABLET PO SCH (08:01)
[2016-11-28] MEDS: FUROSEMIDE 40 MG TABLET PO SCH (08:01)
[2016-11-28] MEDS: POTASSIUM CHLORIDE 20 MEQ TABLET PO SCH ×2 (08:01→18:11)
[2016-11-28] MEDS: ESCITALOPRAM 10 MG TABLET PO SCH (08:01)
[2016-11-28] MEDS: PANTOPRAZOLE 40 MG TABLET PO SCH (08:01)
[2016-11-28] MEDS: TIMOLOL EYE BOTH EYES SCH (08:02)
[2016-11-28] MEDS: FLUTICASONE NASAL SPRAY 50 MCG EA NOSTRIL SCH (08:02)
[2016-11-28] MEDS: THIAMINE 100 MG TABLET PO SCH ×3 (08:02→19:42)
[2016-11-28] MEDS: DORZOLAMIDE BOTH EYES SCH (08:02)
[2016-11-28] MEDS: TIMOLOL 0.5% EYE DROPS 5ml BOTH EYES SCH ×2 (08:02→19:42)
--- NOTE | 2016-11-28 08:30 | NUR ---
Pt. Status Pt cooperative with cares, dentures brushed and face washed. Pt oriented to person and very [place]. Delayed responses to interaction due to hearing, but appropriate to situation. Took meds crushed without any problems and ate well.
[2016-11-28 08:46] VITALS: BP 143/79; PULSE 99; RESP 18; TEMP 97.4; O2SAT 99
[2016-11-28] MEDS: ALBUTEROL/IPRATROPIUM INHAL. 2.5mg-0.5mg/3ml Neb. AEROSOL SCH ×2 (09:35→20:10)
--- NOTE | 2016-11-28 10:12 | NUR ---
WARFARIN CONSULT S: 76 y/o M on warfarin for afib; home dose is 5.5 mg daily. Goal INR 2-3. O: Date INR Warfarin Dose 11/12 5.68 HELD 11/13 5.72 HELD 11/14 5.07 HELD 11/15 5.38 HELD...VITAMIN K 1 MG PO GIVEN 11/16 3.39 HELD 11/17 1.55 3 mg 11/18 1.55 4 mg 11/19 2.31 1 mg 11/20 1.97 2 mg 11/21 1.94 2 mg 11/22 1.83 3 mg 11/23 1.61 5 mg 11/24 1.95 4 mg 11/25 2.51 3 mg 11/26 2.73 3 mg 11/27 2.85 3 mg 11/28 2.76 Plan 3 mg A/P: The INR is therapeutic. I ordered warfarin 3 mg PO today. The Pharmacy will continue to monitor & make adjustments accordingly. Thank you for the consult, Simeon Montanez, Pharmacist.
[2016-11-28] MEDS ORDERED: WARFARIN 2.5 MG TABLET PO SCH (12:00)
[2016-11-28] MEDS: FUROSEMIDE 20 MG TABLET PO SCH (15:32)
[2016-11-28 16:18] VITALS: BP 131/77; PULSE 101; RESP 16; TEMP 98; O2SAT 100
[2016-11-28 16:36] VITALS: O2SAT 99
[2016-11-28] MEDS: ALBUTEROL/IPRATROPIUM INHAL. 2.5mg-0.5mg/3ml Neb. AEROSOL PRN (16:36)
--- NOTE | 2016-11-28 16:50 | NUR ---
Slums Examination Repeated exam per request Dr. Dixon and score of 13 noted.
--- NOTE | 2016-11-28 18:16 | NUR ---
Shift Summary Pt cooperative with cares and medications. Speech is delayed but appropriate to situation. Denies having visual or auditory hallucinations (report to nurse.)
[2016-11-28] MEDS: LATANOPROST 0.005% EYE DROPS 2.5 ML BOTTLE BOTH EYES SCH (19:42)
[2016-11-28] MEDS: ATORVASTATIN 40 MG TABLET PO SCH (19:42)
--- NOTE | 2016-11-28 20:00 | NUR ---
Status Pt sitting in chair in day room with other patients watching a basketball game. No hallucinations noted (auditory or visual) and none reported by patient. Pt assessed and is tolerating 2L/NC without difficulty breathing. Pt continues to need 2+ assist for transfers from chair to WC and then WC to bed. Bag bath completed and full skin assessment done. Pt noted to continue to have shear injury on coccyx with red granulation tissue and mepilex dressing in place. Pt takes meds without difficulty and eats 100% of snack offered. No PRN given. Pt denies having any delusional thoughts or anxiety at this time.
[2016-11-28 20:10] VITALS: O2SAT 97
[2016-11-28 21:20] VITALS: BP 136/79; PULSE 97; RESP 24; TEMP 97.8; O2SAT 99
--- NOTE | 2016-11-28 21:20 | GENPN ---
[facility] Subjective Date DATE: 11/28/16 TIME: 15:05 Subjective/Severity of Illness Medications Current Medications Medications (Trade) Dose Ordered Sig/Lilly Start Time Stop Time Status Last Admin Dose Admin Acetaminophen (Tylenol Regular Strength) 1-2 tabs PRN for pain Q5H PRN 11/20/16 22:00 11/27/16 18:09 650 MG Aspirin (ASA) 81 mg DAILY 11/21/16 09:00 11/28/16 08:01 81 MG Atorvastatin Calcium (LIPITOR 40 mg) 40 mg HS 11/21/16 21:00 11/27/16 20:26 40 MG Cilostazol (Pletal 50 Mg) 50 mg ACB30 11/21/16 07:30 11/28/16 08:00 50 MG Clindamycin HCl (Cleocin) 300 mg TID 11/21/16 09:00 11/25/16 21:01 DC 11/25/16 20:08 300 MG Escitalopram Oxalate (LEXAPRO 10mg) 10 mg DAILY 11/21/16 09:00 11/28/16 08:01 10 MG Fluticasone Propionate (Flonase) 1 spray DAILY 11/21/16 09:00 11/28/16 08:02 1 SPRAY Furosemide (Lasix) 20 mg 08,14 11/21/16 08:00 11/25/16 15:19 DC 11/25/16 15:12 20 MG Albuterol/ Ipratropium (Duoneb) 3 ml BID PRN 11/20/16 22:00 11/25/16 15:19 DC 11/23/16 19:50 3 ML Albuterol/ Ipratropium (Duoneb) 3 ml Q2HR PRN 11/20/16 22:00 11/26/16 13:27 3 ML Latanoprost (Xalatan) 1 drop HS 11/21/16 21:00 11/27/16 20:27 1 DROP Magnesium Oxide (Magox) 400 mg BID 11/21/16 09:00 11/28/16 08:01 400 MG Pantoprazole Sodium (Protonix) 40 mg DAILY 11/21/16 09:00 11/28/16 08:01 40 MG Polyethylene Glycol (Miralax) 17 g Q2D@09 11/21/16 09:00 11/27/16 09:17 17 G Potassium Chloride (Kdur) 20 meq BIDWM 11/21/16 08:00 11/28/16 08:01 20 MEQ Miscellaneous Medication (May use PRN orders) 1 PRN PRN 11/20/16 22:00 Haloperidol (Haldol) 0.5 mg Q6H PRN 11/20/16 22:00 11/21/16 19:02 DC 11/21/16 18:52 0.5 MG Lorazepam (Ativan) 0.5 mg Q6H PRN 11/20/16 22:00 11/26/16 14:59 0.5 MG Lorazepam (Ativan) 0.5 mg Q6H PRN 11/20/16 22:00 Haloperidol Lactate (Haldol 5 Mg/ml Inj) 0.5 mg Q6H PRN 11/20/16 22:00 11/21/16 19:02 DC Warfarin Sodium (Coumadin Protocol) NOTE 11/21/16 07:00 Warfarin Sodium (COUMADIN 2 mg) 2 mg NOON 11/21/16 12:00 11/21/16 12:30 DC 11/21/16 11:16 2 MG Carvedilol (Coreg) 25 mg BIDWM 11/21/16 10:45 11/28/16 08:00 25 MG Dorzolamide/ Timolol (Cosopt Ocumeter Plus) 1 drop DAILY 11/22/16 09:00 11/28/16 08:02 1 DROP Timolol Hemihydrate (Timoptic 0.5% Eye Drops) 1 drop BID 11/21/16 21:00 11/28/16 08:02 1 DROP Quetiapine Fumarate (Seroquel) 25 mg Q6HR PRN 11/21/16 19:00 11/22/16 18:12 DC 11/22/16 02:29 25 MG Quetiapine Fumarate (Seroquel) 12.5 mg HS 11/21/16 21:00 11/22/16 09:00 DC 11/21/16 19:07 12.5 MG Thiamine HCl (Vit. B1) 100 mg TID 11/22/16 09:00 11/28/16 08:02 100 MG Quetiapine Fumarate (Seroquel) 12.5 mg Q6HR PRN 11/22/16 18:15 11/22/16 23:50 12.5 MG Quetiapine Fumarate (Seroquel) 12.5 mg HS 11/22/16 21:00 11/26/16 15:37 DC 11/25/16 20:10 12.5 MG Warfarin Sodium (COUMADIN 5 mg) 5 mg NOON 11/23/16 12:00 11/23/16 12:15 DC 11/23/16 12:08 5 MG Albuterol/ Ipratropium (Duoneb) 3 ml BID 11/25/16 21:00 11/28/16 09:35 3 ML Furosemide (Lasix) 40 mg DAILY 11/26/16 09:00 11/28/16 08:01 40 MG Furosemide (Lasix) 20 mg 15 11/25/16 15:22 11/27/16 15:33 20 MG Warfarin Sodium (COUMADIN 3 mg) 3 mg NOON 11/26/16 12:00 11/26/16 12:30 DC 11/26/16 12:01 3 MG Quetiapine Fumarate (Seroquel) 12.5 mg BID 11/26/16 21:00 11/28/16 08:01 12.5 MG Acetaminophen (Tylenol Regular Strength) 1-2 TABS Q5H PRN 11/27/16 06:30 Warfarin Sodium (COUMADIN 2.5 mg) 2.5 mg NOON 11/27/16 12:00 11/27/16 12:30 DC 11/27/16 11:46 2.5 MG Warfarin Sodium (COUMADIN 2.5 mg) 2.5 mg NOON 11/28/16 12:00 11/28/16 12:30 DC 11/28/16 11:58 2.5 MG Subjective Patient seen and chart reviewed. Case discussed with treatment team. Patient has been pleasant and cooperative but exhibiting significant thought delay. Patient is sitting in dayroom on approach, watching TV alongside peers. Patient states that his mood is okay and initially denies any symptoms of psychosis. However, when I press him further, he admits to hearing music still which is inappropriate in nature as it has been in the past. He denies any command hallucinations but does admit that the AH are somewhat worrisome for him given his history. He also complains of difficulty with his vision and hearing, which are frustrating for him. Asked staff to retrieve his glasses and help him with this on the unit. He states that his dog ate his hearing aids and his has refused to buy more - does not appear that his is his DPOA at this time so will discuss this with her. Patient denies any SI, HI or VH. Patient slept 7.75 hours overnight. Appetite is good. Patient denies any adverse side effects due to medications or other concerns. VSS. No new labs. Psychotropic PRNs required in the past 24 hours: none. SLUMS was repeated and patient scored a 13/30, a significant improvement from admission. Time of Service: 10:30 Start Time: 16:00 Stop Time: 16:20 Care >50% of this visit spent in counseling/coordination care. [facility] Exam Vitals Vital Signs Date Time Temp Pulse Resp B/P Pulse Ox O2 Delivery O2 Flow Rate FiO2 11/28/16 09:35 16 11/28/16 09:35 90 11/28/16 08:46 97.4 143/79 99 Nasal Cannula 2.00 Physical examination performed by the hospitalist. Height (Feet): 5 Height (Inches): 11.00 Mental Status Exam Muscle Strength/Tone: Normal Dressing: Casual Grooming: Good Attitude: Guarded (in regards to psychosis) Motor Activity: Retardation Eye Contact: Fair Speech: Slowed Volume: Loud (due to being hard of hearing) Rhythm: Appropriate Rhythm Sensory: Alert Orientation: Disoriented to time, Oriented to person Mood: Neutral Affect: Blunted Rate of Thoughts: Delayed Thought Organization: Blocking Associations: Intact Abstract Reasoning: Poor abstract reasoning Thought Content: Other (Anxiety in regards to AH, frustration with vision/ hearing, reports AH are inappropriate in nature) Perception/Psychotic: Psychotic Current Hallucinations: Auditory Attention Span/Concentration: Distractable Language: Naming Intact Fund of Knowledge: Other (Decreased from baseline) Memory: Poor-recent Suicidal Ideation: Denies Homicidal Ideation: Denies Insight: Limited Judgment: Limited Impulse Control: Fair Laboratory Tests Test 11/28/16 05:14 Prothromb Time International Ratio 2.76 Assessment and Plan (1) 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 Plan: -Admit to [facility] unit. Obtain Vitamin B12 and folate. Observe patient in the unit. 11/21/16: Seroquel 12.5mg po qhs. Thiamine 100mg TID. 11/21/16: Cont Seroquel 12.5mg and also change PRN Seroquel to 12.5mg q6 prn agitation 11/22/16: Continue current care 11/24/16 Continue current care 11/25/16 Continue current care 11/26/16: Schedule Seroquel 12.5mg PO q in AM in addition to HS 11/27/16: Continue current care; plan to repeat SLUMS. 11/28/16: Increase Seroquel to 12.5mg PO q AM and 25mg PO q HS; monitor for improvement in thought blocking as well as signs of EPS. Increase Seroquel to 12.5mg PO q AM and 25mg PO q HS; monitor for improvement in thought blocking as well as signs of EPS. Will look into replacement of hearing aids, discuss with DPOA. Will help with mood/orientation if patient has glasses at all times. SUNNY PATEL MD Nov 28, 2016 15:05
--- NOTE | 2016-11-28 23:45 | NUR ---
Chart Check 24 hour chart check completed
[2016-11-29] VITALS (8 sets, daily range): BP systolic 144–155; BP diastolic 83–95; PULSE 86–94; RESP 16–20; TEMP 97–98.3; O2SAT 95–99
--- NOTE | 2016-11-29 00:51 | NUR ---
Status Pt. sleeping at this time. O2 in place at 2L.
--- NOTE | 2016-11-29 06:06 | NUR ---
Summary Inc. of urine and nacho-care given during the night. Dressing to coccyx intact. Positioned off buttocks with pillows. Slept 8 hours.
[2016-11-29 07:13] LABS: INR 1.91 (0.76-1.04); PROTHROMBIN TIME 20.8 SEC (9.31-12.49)
[2016-11-29] MEDS: CILOSTAZOL 50 MG TABLET PO SCH (07:36)
[2016-11-29] MEDS: PANTOPRAZOLE 40 MG TABLET PO SCH (07:56)
[2016-11-29] MEDS: ESCITALOPRAM 10 MG TABLET PO SCH (07:56)
[2016-11-29] MEDS: POTASSIUM CHLORIDE 20 MEQ TABLET PO SCH ×2 (07:56→17:23)
[2016-11-29] MEDS: ASPIRIN 81 MG CHEWABLE TABLET PO SCH (07:56)
[2016-11-29] MEDS: THIAMINE 100 MG TABLET PO SCH ×3 (07:56→20:04)
[2016-11-29] MEDS: MAGNESIUM OXIDE 400 MG TABLET PO SCH ×2 (07:56→20:04)
[2016-11-29] MEDS: CARVEDILOL 25 MG TABLET PO SCH ×2 (07:56→17:23)
[2016-11-29] MEDS: FUROSEMIDE 40 MG TABLET PO SCH (07:56)
[2016-11-29] MEDS: QUETIAPINE 25 MG TABLET PO SCH ×2 (07:57→20:04)
[2016-11-29] MEDS: FLUTICASONE NASAL SPRAY 50 MCG EA NOSTRIL SCH (07:57)
[2016-11-29] MEDS: TIMOLOL 0.5% EYE DROPS 5ml BOTH EYES SCH ×2 (07:57→20:04)
[2016-11-29] MEDS: POLYETHYL.GLYCOL 3350 PACKET 17gm PO SCH (07:57)
[2016-11-29] MEDS: DORZOLAMIDE BOTH EYES SCH (07:58)
[2016-11-29] MEDS: TIMOLOL EYE BOTH EYES SCH (07:58)
[2016-11-29] MEDS: ACETAMINOPHEN 325 MG TABLET PO PRN (09:03)
--- NOTE | 2016-11-29 09:41 | NUR ---
WARFARIN CONSULT S: 76 y/o M on warfarin for afib; home dose is 5.5 mg daily. Goal INR 2-3. O: Date INR Warfarin Dose 11/12 5.68 HELD 11/13 5.72 HELD 11/14 5.07 HELD 11/15 5.38 HELD...VITAMIN K 1 MG PO GIVEN 11/16 3.39 HELD 11/17 1.55 3 mg 11/18 1.55 4 mg 11/19 2.31 1 mg 11/20 1.97 2 mg 11/21 1.94 2 mg 11/22 1.83 3 mg 11/23 1.61 5 mg 11/24 1.95 4 mg 11/25 2.51 3 mg 11/26 2.73 3 mg 11/27 2.85 2.5 mg 11/28 2.76 2.5 mg 11/29 1.91 Plan 3 mg A/P: The INR is subtherapeutic. I ordered warfarin 3 mg PO today. The Pharmacy will continue to monitor & make adjustments accordingly. Thank you for the consult, Simeon Montanez, Pharmacist.
[2016-11-29] MEDS: ALBUTEROL/IPRATROPIUM INHAL. 2.5mg-0.5mg/3ml Neb. AEROSOL SCH ×2 (10:00→20:50)
--- NOTE | 2016-11-29 10:10 | PNPDOC ---
Subjective Date DATE: 11/29/16 TIME: 09:56 Brandt Wolff is seen this morning while eating breakfast. He is alert and pleasant during conversation. He is currently on 3 liters of oxygen however sats are reported in the high 90's. I placed him on 1 liter of oxygen and requested staff to monitor saturations. He denies having chest pain and reports that his breathing has improved. He does complain of having sore arms which is not new for him. Denies abdominal pain or difficulty with urination. Bowels moved yesterday. Objective Vital Signs Vital signs Vital Signs Date Time Temp Pulse Resp B/P Pulse Ox O2 Delivery O2 Flow Rate FiO2 11/29/16 08:00 94 16 11/29/16 07:59 97.0 144/95 96 Nasal Cannula 2.00 Height (Feet): 5 Height (Inches): 11.00 Weight (Kilograms): 87.200 General General Appearance: Alert, Orientated x 2, Cooperative, No Acute Distress Eyes (Brief) Eyes: FOUND: EOMI ENMT (Brief) ENMT: FOUND: mucosa moist, normal dentition, NOT FOUND: pharnyx erythema Neck (Brief) Neck: FOUND: midline, NOT FOUND: adenopathy, carotid bruits, tracheal deviation Respiratory (Brief) Respiratory: FOUND: clear all sullivan, equal bilaterally, NOT FOUND: wheezes Cardiovascular (Brief) Cardiac: FOUND: regular rate, regular rhythm, NOT FOUND: murmur, pedal edema Capillary Refill: <2 sec Abdomen (Brief) Abdominal: FOUND: BS normo active x4, soft, NOT FOUND: distended, tender Lymphatic (Brief) Lymphatic: NOT FOUND: adenopathy Musculoskeletal (Brief) Musculoskeletal: NOT FOUND: tenderness Integumentary (Brief) Integumentary: FOUND: dry, pink, warm Neurologic (Brief) Neurological: FOUND: cranial 2-12 intact Psychiatric (Brief) Psychiatric: FOUND: alert, attentive, normal affect, oriented Assessment & Plan Problems: (1) Schizophrenia, unspecified Status: Chronic (2) Alzheimer's dementia without behavioral disturbance Status: Chronic (3) Ambulatory dysfunction Status: Chronic (4) Hypertension Status: Chronic (5) ASHD (arteriosclerotic heart disease) Status: Chronic (6) Hyperlipidemia Status: Chronic (7) GERD (gastroesophageal reflux disease) Status: Chronic (8) Atrial fibrillation, chronic Status: Chronic (9) CKD (chronic kidney disease) Status: Chronic (10) Parkinsonian tremor Status: Chronic (11) Cardiomegaly Status: Chronic (12) Alcohol use disorder, severe, in sustained remission, in controlled environment Status: Chronic (13) Aspiration pneumonia Status: Acute Qualifiers: Aspiration pneumonia type: unspecified Laterality: bilateral Lung location: lower lobe of lung Qualified Codes: J69.0 - Pneumonitis due to inhalation of food and vomit (14) Pulmonary edema Status: Acute Plan/Intensity of Service 11/29/16 Last chest Xray was on 11/25 which indicated improved pulmonary edema Will have staff and RT work on weaning down oxygen. Continue with DuoNeb BID Continue to trend weight, have asked staff to weight patient today. Continue with Lasix 40 mg in the am and 20 mg at 1500. PO potassium supplementation. Will recheck BMP tomorrow am to follow renal function and electrolytes Psychiatric management per [facility] team. Code Status Do Not Resuscitate Hospital Course Summary Disclaimer The hospital course summary below is not to be considered part of the above Progress Note. Hospital Course Summary 11/21/16 Agree with admission to [facility] unit for ongoing psychiatric care and treatment recommendations It is reported that patient has have a significant cognitive decline over the past 6 months. It is unclear regarding the length at which patient has had tremor/rigidity. He did have psychosis and was prescribed Zyprexa initially. However, this has been held since admission to the hospital. PT was consulted given that patient is requiring a lift for transfers. It is unclear if this is patient's baseline. Noted to have a cough as well as increase in WBC count today to 13.7 from 8.9 yesterday. Will recheck a Chest Xray today. Will also recheck UA to rule out infection Continues on Clindamycin antibiotic for treatment of Pneumonia. End date for 2 week course. INR today is 1.94, Continue with Coumadin daily via pharmacy dosing/management. Will give one time dose of oral potassium supplementation given mild hypokalemia of 3.5 Continue with Coreg 25mg BID for rate control Recheck CBC and BMP tomorrow 11/22/16 Appears to be less anxious and agitated this morning following dose of Seroquel overnight. WBC count continues to be mildly elevated. Again asked nursing staff to obtain a urinalysis that was ordered yesterday. Continues on Clindamycin antibiotic for treatment of Pneumonia. End date for 2 week course. Blood pressure continues to be intermittently elevated. Continue on Coreg 25 twice a day, will continue to monitor Hypokalemia, improved following oral supplementation. Recheck CBC and BMP tomorrow 11/24/16: Edwin. Nursing reported that New was complaining of feeling short of breath today with pulse ox 100% on room air. he was started on supplemental oxygen for comfort. Lung sounds revealed rhonchi initially which cleared with self forced cough revealing bilateral basilar crackles. He continues on clindamycin for prior pneumonia with treatment to be complete tomorrow (11/25/16). Will repeat CXR and monitor closely for signs of deterioration. Continue with psychiatric care per Dr. Dixon. Continue to provide safe and supportive environment. No new labs. Previous WBC trending down. Will recheck CBC and BMP in AM to monitor blood counts, electrolytes and renal function In light of edema, will monitor daily weights for signs of fluid over load. UA on 11/22 was unremarkable. Blood pressure stable. Continue with treatment. Mucinex added for mucolytic. 11/25/16- Pt. was reporting an increase in SOA yesterday. Note is reviewed. His CXR still shows infiltrate and edema, but is slowly improving. Increase Lasix to 40am, 20pm, continue current KCL. BP should support. Clinda to finish today- observe progress off the antibiotics. Is wearing O2 for comfort. Appears to have some atelectasis- increase nebs to BID and PRN. repeat labs and CXR-2 view in AM to better visualize what is going on in the lung. Chronic AFib on Warfarin- Pharmacy monitoring. Continue supportive care via primary team for psychiatric concerns. Chart is reviewed. 11/27 Respiratory status seems to be slowly improving. He is on oxygen at 2 L and sats are maintained in the 90s. Chest x-ray done on 11/26/2016 showed improving pulmonary edema and improving pneumonia. Antibiotics have been discontinued by hospitalist physician. It was recommended that patient have a repeat chest x- ray later this week or even consider pushing that out if remains clinically stable for another 1-2 weeks. Patient had an increased dose of Lasix 2 days ago with 40 mg now being given in the morning and 20 mg in the afternoon. Continue to follow potassium trending, this morning it was 3.5, he is being replaced with 20 mEq twice daily. BNP had been ordered for today and was 2248 which is better than the 3 previous readings we have on this patient. INR being monitored daily, this morning 2.73. Coumadin dosing per pharmacy. Psychiatric management per [facility] team. 11/29/16 Last chest Xray was on 11/25 which indicated improved pulmonary edema Will have staff and RT work on weaning down oxygen. Continue with DuoNeb BID Continue to trend weight, have asked staff to weight patient today. Continue with Lasix 40 mg in the am and 20 mg at 1500. PO potassium supplementation. Will recheck BMP tomorrow am to follow renal function and electrolytes Psychiatric management per [facility] team. PAULETTE PAEZ APRN Nov 29, 2016 10:03
--- NOTE | 2016-11-29 11:15 | DI ---
Indication: ITS.REASON: pna CHEST, PA LATERAL: Comparison: 11/25/2016 Technique: Sitting AP and lateral views Findings: Patient continues to show mild cardiac prominence with increased basilar markings. There still some fluid tracking in the minor fissure. Patient showed abnormal bony appearance of the mid shaft of the left humerus which is incompletely seen on this exam. Small bilateral pleural effusions persist. Impression: When compared to the previous study patient still shows increased bibasilar density and bilateral effusions with mild cardiac prominence. Patient does not seem to show much change since the previous exam. .
[2016-11-29] MEDS ORDERED: WARFARIN 3 MG TABLET PO SCH (12:00)
--- NOTE | 2016-11-29 12:07 | NUR ---
KOREY NAIR WAS NOTIFIED THAT LUPILLO, DAUGHTER AND DPOA WOULD LIKE AN UPDATE ON PATIENT CONDITION. I CALLED AND LEFT A VOICE MESSAGE TO RETURN CALL TO ME.
--- NOTE | 2016-11-29 12:15 | NUR ---
STATUS Pt has been pleasant, cooperative with assessment and cares, compliant wit medications. Pt allow staff to assist him with cares, He is [place], hears better on his right ear. Pt complained of pain on his arms bilateral and on his right knee. Pt rated pain at a 5/10, Tylonol 650 mg PO PRN was given at 0900. During follow up patient was sleeping in the day room. Pt was weaned off of oxygen this morning, He is on RA now, last O2sats were 98 % on RA, No respiratory distress noted. Pt denies SOA. Pt had an xray this morning, he was cooperative with the process. No inappropriate behaviors noted. Flat affect, does not smile, speech is clear and appropriate, he is able to verbalize needs. Pt denies needs or concerns at the moment.
--- NOTE | 2016-11-29 12:45 | NUR ---
KOREY NAIR SPOKE WITH DAUGHTER, LUPILLO MCKINLEY AND UPDATED ON CLINICAL CONDITION. SHE WOULD LIKE TO BE NOTIFIED WHEN DISCHARGE DATE IS KNOWN. CONFIRMED DISCHARGE PLAN IS TO RETURN TO [facility].
[2016-11-29] MEDS: FUROSEMIDE 20 MG TABLET PO SCH (15:42)
--- NOTE | 2016-11-29 17:53 | NUR ---
SHIFT SUMMARY Pt has been pleasant today, he was cooperative with cares and assessment, compliant with medications. Pt complained of pain on his arms and knees this morning, Tylenol 650 mg PO PRN was given, during patient was sleeping. No hallucinations noted, no aggressive behaviors noted. Pt is deaf in left ear and [place] in right. No anxiety noted. Pt did not participate in group activities today, he was in the day room and dining room most of the shift. Pt speech is clear and appropriate, he is able to verbalize needs. He has a skin shear on his upper area of his bottom. Mepilex dressing was changed today. Pt has been taking his medications crushed with chocolate pudding. Pt needs assist of 2 for transfers. Pt denies need or concerns at the moment.
--- NOTE | 2016-11-29 20:00 | NUR ---
STATUS PT IS SEATED IN RECLINER IN DAY ROOM. PT IS ORIENTED TO PERSON AND PLACE. SEATED IN RECLINER WATCHING BASKETBALL GAME. DOES NOT SHOW ANY BEHAVIORS AT THIS TIME. TAKES PO MEDICATIONS WITHOUT INCIDENT. ASSESSMENT IS COMPLETE. PT REQUEST TO GO TO ROOM FOR URINATION AT THIS TIME. REQUIRES MAX ASSISTANCE X2 TO PIVOT TRANSFER TO THE . WEIGHT IS OBTAINED.
[2016-11-29] MEDS: LATANOPROST 0.005% EYE DROPS 2.5 ML BOTTLE BOTH EYES SCH (20:04)
[2016-11-29] MEDS: ATORVASTATIN 40 MG TABLET PO SCH (20:04)
--- NOTE | 2016-11-29 20:30 | NUR ---
NURSING RT IS CALLED PT IS IN BED AND REQUESTING HIS BREATHING TREATMENT. LEGS ARE ELEVATED AND 02 IS PLACED.
--- NOTE | 2016-11-29 21:00 | NUR ---
NURSING RT IS AT SIDE. TREATMENT IS GIVEN AND PT SETTLES. NO FURTHER NEEDS ARE NOTED AT THIS TIME.
--- NOTE | 2016-11-29 21:01 | GENPN ---
[facility] Subjective Date DATE: 11/29/16 TIME: 20:56 Subjective/Severity of Illness Medications Current Medications Medications (Trade) Dose Ordered Sig/Lilly Start Time Stop Time Status Last Admin Dose Admin Acetaminophen (Tylenol Regular Strength) 1-2 tabs PRN for pain Q5H PRN 11/20/16 22:00 11/29/16 09:03 650 MG Aspirin (ASA) 81 mg DAILY 11/21/16 09:00 11/29/16 07:56 81 MG Atorvastatin Calcium (LIPITOR 40 mg) 40 mg HS 11/21/16 21:00 11/29/16 20:04 40 MG Cilostazol (Pletal 50 Mg) 50 mg ACB30 11/21/16 07:30 11/29/16 07:36 50 MG Clindamycin HCl (Cleocin) 300 mg TID 11/21/16 09:00 11/25/16 21:01 DC 11/25/16 20:08 300 MG Escitalopram Oxalate (LEXAPRO 10mg) 10 mg DAILY 11/21/16 09:00 11/29/16 07:56 10 MG Fluticasone Propionate (Flonase) 1 spray DAILY 11/21/16 09:00 11/29/16 07:57 1 SPRAY Furosemide (Lasix) 20 mg 08,14 11/21/16 08:00 11/25/16 15:19 DC 11/25/16 15:12 20 MG Albuterol/ Ipratropium (Duoneb) 3 ml BID PRN 11/20/16 22:00 11/25/16 15:19 DC 11/23/16 19:50 3 ML Albuterol/ Ipratropium (Duoneb) 3 ml Q2HR PRN 11/20/16 22:00 11/28/16 16:36 3 ML Latanoprost (Xalatan) 1 drop HS 11/21/16 21:00 11/29/16 20:04 1 DROP Magnesium Oxide (Magox) 400 mg BID 11/21/16 09:00 11/29/16 20:04 400 MG Pantoprazole Sodium (Protonix) 40 mg DAILY 11/21/16 09:00 11/29/16 07:56 40 MG Polyethylene Glycol (Miralax) 17 g Q2D@09 11/21/16 09:00 11/29/16 07:57 17 G Potassium Chloride (Kdur) 20 meq BIDWM 11/21/16 08:00 11/29/16 17:23 20 MEQ Miscellaneous Medication (May use PRN orders) 1 PRN PRN 11/20/16 22:00 Haloperidol (Haldol) 0.5 mg Q6H PRN 11/20/16 22:00 11/21/16 19:02 DC 11/21/16 18:52 0.5 MG Lorazepam (Ativan) 0.5 mg Q6H PRN 11/20/16 22:00 11/26/16 14:59 0.5 MG Lorazepam (Ativan) 0.5 mg Q6H PRN 11/20/16 22:00 Haloperidol Lactate (Haldol 5 Mg/ml Inj) 0.5 mg Q6H PRN 11/20/16 22:00 11/21/16 19:02 DC Warfarin Sodium (Coumadin Protocol) NOTE 11/21/16 07:00 Warfarin Sodium (COUMADIN 2 mg) 2 mg NOON 11/21/16 12:00 11/21/16 12:30 DC 11/21/16 11:16 2 MG Carvedilol (Coreg) 25 mg BIDWM 11/21/16 10:45 11/29/16 17:23 25 MG Dorzolamide/ Timolol (Cosopt Ocumeter Plus) 1 drop DAILY 11/22/16 09:00 11/29/16 07:58 1 DROP Timolol Hemihydrate (Timoptic 0.5% Eye Drops) 1 drop BID 11/21/16 21:00 11/29/16 20:04 1 DROP Quetiapine Fumarate (Seroquel) 25 mg Q6HR PRN 11/21/16 19:00 11/22/16 18:12 DC 11/22/16 02:29 25 MG Quetiapine Fumarate (Seroquel) 12.5 mg HS 11/21/16 21:00 11/22/16 09:00 DC 11/21/16 19:07 12.5 MG Thiamine HCl (Vit. B1) 100 mg TID 11/22/16 09:00 11/29/16 20:04 100 MG Quetiapine Fumarate (Seroquel) 12.5 mg Q6HR PRN 11/22/16 18:15 11/22/16 23:50 12.5 MG Quetiapine Fumarate (Seroquel) 12.5 mg HS 11/22/16 21:00 11/26/16 15:37 DC 11/25/16 20:10 12.5 MG Warfarin Sodium (COUMADIN 5 mg) 5 mg NOON 11/23/16 12:00 11/23/16 12:15 DC 11/23/16 12:08 5 MG Albuterol/ Ipratropium (Duoneb) 3 ml BID 11/25/16 21:00 11/29/16 10:00 3 ML Furosemide (Lasix) 40 mg DAILY 11/26/16 09:00 11/29/16 07:56 40 MG Furosemide (Lasix) 20 mg 15 11/25/16 15:22 11/29/16 15:42 20 MG Warfarin Sodium (COUMADIN 3 mg) 3 mg NOON 11/26/16 12:00 11/26/16 12:30 DC 11/26/16 12:01 3 MG Quetiapine Fumarate (Seroquel) 12.5 mg BID 11/26/16 21:00 11/28/16 17:25 DC 11/28/16 08:01 12.5 MG Acetaminophen (Tylenol Regular Strength) 1-2 TABS Q5H PRN 11/27/16 06:30 Warfarin Sodium (COUMADIN 2.5 mg) 2.5 mg NOON 11/27/16 12:00 11/27/16 12:30 DC 11/27/16 11:46 2.5 MG Warfarin Sodium (COUMADIN 2.5 mg) 2.5 mg NOON 11/28/16 12:00 11/28/16 12:30 DC 11/28/16 11:58 2.5 MG Quetiapine Fumarate (Seroquel) 12.5 mg DAILY 11/29/16 09:00 11/29/16 07:57 12.5 MG Quetiapine Fumarate (Seroquel) 25 mg HS 11/28/16 21:00 11/29/16 20:04 25 MG Warfarin Sodium (COUMADIN 3 mg) 3 mg NOON 11/29/16 12:00 11/29/16 12:15 DC 11/29/16 12:12 3 MG Subjective Patient seen and chart reviewed. Patient has been pleasant/cooperative. He reports that his mood is good and thought blocking not evident today. He is guarded about AH unless asked very directly. He states he would share it if they progressed to voices, more inappropriate or disturbing content or command hallucinations. They are decreased in intensity today. Patient denies any SI, HI or VH. Patient slept 8 hours overnight. Appetite is good. Patient denies any adverse side effects due to medications or other concerns. VSS. No new labs. Psychotropic PRNs required in the past 24 hours: none. SLUMS was repeated and patient scored a 13/30, a significant improvement from admission. Time of Service: 10:30 Start Time: 14:50 Stop Time: 15:10 Care >50% of this visit spent in counseling/coordination care. [facility] Exam Vitals Vital Signs Date Time Temp Pulse Resp B/P Pulse Ox O2 Delivery O2 Flow Rate FiO2 11/29/16 20:06 98.3 87 18 155/83 99 Room Air 11/29/16 07:59 2.00 Physical examination performed by the hospitalist. Height (Feet): 5 Height (Inches): 11.00 Mental Status Exam Muscle Strength/Tone: Normal Dressing: Casual Grooming: Fair Attitude: Cooperative Motor Activity: Retardation Eye Contact: Good Speech: Normal Volume: Loud (due to being hard of hearing) Rhythm: Appropriate Rhythm Sensory: Alert Orientation: Disoriented to time, Disoriented to place, Disoriented to situation, Oriented to person Mood: Neutral Affect: Blunted Rate of Thoughts: Delayed (less than previous) Thought Organization: Organized, Blocking (not evident today) Associations: Intact Abstract Reasoning: Poor abstract reasoning Thought Content: Other (No abnormal thought content elicited today) Perception/Psychotic: Psychotic Current Hallucinations: Auditory (music, decreased in intensity from previously ) Attention Span/Concentration: Distractable Language: Naming Intact Fund of Knowledge: Other (Decreased from baseline) Memory: Poor-recent Suicidal Ideation: Denies Homicidal Ideation: Denies Insight: Limited Judgment: Limited Impulse Control: Fair Laboratory Tests Test 11/29/16 06:42 Prothromb Time International Ratio 1.91 Assessment and Plan (1) 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 Plan: -Admit to [facility]. Obtain Vitamin B12 and folate. Observe patient in the unit. 11/21/16: Seroquel 12.5mg po qhs. Thiamine 100mg TID. 11/21/16: Cont Seroquel 12.5mg and also change PRN Seroquel to 12.5mg q6 prn agitation 11/22/16: Continue current care 11/24/16 Continue current care 11/25/16 Continue current care 11/26/16: Schedule Seroquel 12.5mg PO q in AM in addition to HS 11/27/16: Continue current care; plan to repeat SLUMS. 11/28/16: Increase Seroquel to 12.5mg PO q AM and 25mg PO q HS; monitor for improvement in thought blocking as well as signs of EPS. 11/29/16: Continue current care; thought blocking not evident today, no sign of increase in EPS with dose increase. Cont. current psych. meds Continue current care; thought blocking not evident today, no sign of increase in EPS with dose increase. Patient is in great need of hearing aids - though there are financial complications with ex-. Daughter is medical DPOA only. I believe this would help with mood and reduction of AH as well. Anticipate discharge soon if patient continues to do well without additional side effects. Follow up with psychiatrist recommended due to history of adverse effects with antipsychotic treatment. SUNNY PATEL MD Nov 29, 2016 20:59
[2016-11-30] VITALS (7 sets, daily range): BP systolic 136–152; BP diastolic 76–98; PULSE 80–102; RESP 16–20; TEMP 97.6–98.1; O2SAT 95–100
[2016-11-30 05:48] LABS: ANION GAP 6 MEQ/L (5-15); BUN/CREATININE RATIO 23 RATIO (6-26); CALCIUM 9.2 MG/DL (8.4-10.2); CHLORIDE 106 MEQ/L (98-107); CO2 - CARBON DIOXIDE 30 MEQ/L (22-30); CREATININE 0.8 MG/DL (0.8-1.5); GLOMERULAR FILTRATION RATE 93; GLUCOSE 99 MG/DL (75-110); POTASSIUM 3.6 MEQ/L (3.6-5); SODIUM 142 MEQ/L (134-144)
[2016-11-30 05:54] LABS: INR 1.7 (0.76-1.04); PROTHROMBIN TIME 18.5 SEC (9.31-12.49)
--- NOTE | 2016-11-30 06:01 | NUR ---
SHIFT SUMMARY PT RESTS WELL THIS EVENING. REQUIRES ASSISTANCE SHORTLY AFTER HE WENT TO BED WITH EXTRA BREATHING TREATMENT. IS INCONT/CONT OF BOWEL X1. SHOWS NO BEHAVIORS OR SIGNS OF DISTRESS THROUGH THE NIGHT. DOES NOT CALL FOR HELP. IS UP TO THE BEDSIDE Q SELF SEVERAL TIMES SETTING THE ALARM OFF. PT ONLY WANTING TO GO TO THE RESTROOM OR TO KNOW WHAT TIME IT WAS THEN RETURNS TO REST. BEDALARM IS ON, BED IS IN LOW POSITION AND RAILS ARE UP X3.
--- NOTE | 2016-11-30 06:03 | NUR ---
SLEEP TIME PT SLEPT 7.25 HOURS TOTAL.
[2016-11-30] MEDS: ALBUTEROL/IPRATROPIUM INHAL. 2.5mg-0.5mg/3ml Neb. AEROSOL SCH ×2 (08:20→19:35)
[2016-11-30] MEDS: DORZOLAMIDE BOTH EYES SCH (09:00)
[2016-11-30] MEDS: TIMOLOL 0.5% EYE DROPS 5ml BOTH EYES SCH ×2 (09:00→19:50)
[2016-11-30] MEDS: FLUTICASONE NASAL SPRAY 50 MCG EA NOSTRIL SCH (09:00)
[2016-11-30] MEDS: TIMOLOL EYE BOTH EYES SCH (09:00)
[2016-11-30] MEDS: POTASSIUM CHLORIDE 20 MEQ TABLET PO SCH ×2 (09:11→17:43)
[2016-11-30] MEDS: CILOSTAZOL 50 MG TABLET PO SCH (09:11)
[2016-11-30] MEDS: MAGNESIUM OXIDE 400 MG TABLET PO SCH ×2 (09:11→19:50)
[2016-11-30] MEDS: THIAMINE 100 MG TABLET PO SCH ×3 (09:11→19:50)
[2016-11-30] MEDS: QUETIAPINE 25 MG TABLET PO SCH ×2 (09:11→19:50)
[2016-11-30] MEDS: FUROSEMIDE 40 MG TABLET PO SCH (09:11)
[2016-11-30] MEDS: ASPIRIN 81 MG CHEWABLE TABLET PO SCH (09:11)
[2016-11-30] MEDS: ESCITALOPRAM 10 MG TABLET PO SCH (09:11)
[2016-11-30] MEDS: PANTOPRAZOLE 40 MG TABLET PO SCH (09:11)
[2016-11-30] MEDS: CARVEDILOL 25 MG TABLET PO SCH ×2 (09:11→17:43)
--- NOTE | 2016-11-30 09:31 | NUR ---
WARFARIN CONSULT S: 76 y/o M on warfarin for afib; home dose is 5.5 mg daily. Goal INR 2-3. O: Date INR Warfarin Dose 11/12 5.68 HELD 11/13 5.72 HELD 11/14 5.07 HELD 11/15 5.38 HELD...VITAMIN K 1 MG PO GIVEN 11/16 3.39 HELD 11/17 1.55 3 mg 11/18 1.55 4 mg 11/19 2.31 1 mg 11/20 1.97 2 mg 11/21 1.94 2 mg 11/22 1.83 3 mg 11/23 1.61 5 mg 11/24 1.95 4 mg 11/25 2.51 3 mg 11/26 2.73 3 mg 11/27 2.85 2.5 mg 11/28 2.76 2.5 mg 11/29 1.91 3 mg 11/30 1.70 Plan 5mg A/P: The INR is subtherapeutic. I ordered warfarin 5 mg PO today. The Pharmacy will continue to monitor & make adjustments accordingly. Thank you for the consult
--- NOTE | 2016-11-30 10:06 | NUR ---
MEASURING MACHINE OPERATOR--INDIVIDUAL LSCSW met 1:1 with pt. since he was sitting alone in day room and there were no other patients available for AM psychoeducational group. Pt. is alert, Ox3, calm with pleasant mood. He has slight delay when responding to questions--not sure if it is because he is so [place] and needs time to process what he thinks he heard. Pt. reports he slept well and is feeling better overall. He states the musical voices have diminished significantly and he feels his anxiety is well managed. He is aware he will be returning to [facility] when discharged. He was advised that it would likely be early next week if he continues to show improvement.
[2016-11-30] MEDS ORDERED: WARFARIN 5 MG TABLET PO SCH (12:00)
--- NOTE | 2016-11-30 13:03 | NUR ---
MID SHIFT NOTE PT IS ORIENTED TO PERSON AND PLACE AT THIS TIME. PT HAS BEEN COMPLIANT WITH CARES. PT TAKES MEDICATIONS AND IS ABLE TO MAKE NEEDS KNOWN TO STAFF. PT HAS LET STAFF KNOW HE NEEDS TO USE THE RESTROOM BUT IS OCCASIONALLY UNABLE TO HOLD IT AND IS INCONTINENT. PT HAS BEEN PLEASANT AND HAS PARTICIPATED IN GROUP AND ACTIVITIES WITH OTHER RESIDENTS. WILL CONTINUE TO MONITOR PT.
[2016-11-30] MEDS: FUROSEMIDE 20 MG TABLET PO SCH (14:40)
--- NOTE | 2016-11-30 16:35 | NUR ---
Status Pt in dayroom with staff present upon my arrival on the unit. Pt requested some water and then a snack. Pt oriented to self and place, denies any pain; states that his knees and feet are uncomfortable but it is nothing significant. Pt is on 2L oxygen at this time; feels he is doing fine at this time. Will continue to monitor.
--- NOTE | 2016-11-30 17:31 | GENPN ---
[facility] Subject[facility] Date DATE: 11/30/16 TIME: 17:28 Subjective/Severity of Illness Medications Current Medications Medications (Trade) Dose Ordered Sig/Lilly Start Time Stop Time Status Last Admin Dose Admin Acetaminophen (Tylenol Regular Strength) 1-2 tabs PRN for pain Q5H PRN 11/20/16 22:00 11/29/16 09:03 650 MG Aspirin (ASA) 81 mg DAILY 11/21/16 09:00 11/30/16 09:11 81 MG Atorvastatin Calcium (LIPITOR 40 mg) 40 mg HS 11/21/16 21:00 11/29/16 20:04 40 MG Cilostazol (Pletal 50 Mg) 50 mg ACB30 11/21/16 07:30 11/30/16 09:11 50 MG Clindamycin HCl (Cleocin) 300 mg TID 11/21/16 09:00 11/25/16 21:01 DC 11/25/16 20:08 300 MG Escitalopram Oxalate (LEXAPRO 10mg) 10 mg DAILY 11/21/16 09:00 11/30/16 09:11 10 MG Fluticasone Propionate (Flonase) 1 spray DAILY 11/21/16 09:00 11/30/16 09:00 1 SPRAY Furosemide (Lasix) 20 mg 08,14 11/21/16 08:00 11/25/16 15:19 DC 11/25/16 15:12 20 MG Albuterol/ Ipratropium (Duoneb) 3 ml BID PRN 11/20/16 22:00 11/25/16 15:19 DC 11/23/16 19:50 3 ML Albuterol/ Ipratropium (Duoneb) 3 ml Q2HR PRN 11/20/16 22:00 11/28/16 16:36 3 ML Latanoprost (Xalatan) 1 drop HS 11/21/16 21:00 11/29/16 20:04 1 DROP Magnesium Oxide (Magox) 400 mg BID 11/21/16 09:00 11/30/16 09:11 400 MG Pantoprazole Sodium (Protonix) 40 mg DAILY 11/21/16 09:00 11/30/16 09:11 40 MG Polyethylene Glycol (Miralax) 17 g Q2D@09 11/21/16 09:00 11/29/16 07:57 17 G Potassium Chloride (Kdur) 20 meq BIDWM 11/21/16 08:00 11/30/16 09:11 20 MEQ Miscellaneous Medication (May use PRN orders) 1 PRN PRN 11/20/16 22:00 Haloperidol (Haldol) 0.5 mg Q6H PRN 11/20/16 22:00 11/21/16 19:02 DC 11/21/16 18:52 0.5 MG Lorazepam (Ativan) 0.5 mg Q6H PRN 11/20/16 22:00 11/26/16 14:59 0.5 MG Lorazepam (Ativan) 0.5 mg Q6H PRN 11/20/16 22:00 Haloperidol Lactate (Haldol 5 Mg/ml Inj) 0.5 mg Q6H PRN 11/20/16 22:00 11/21/16 19:02 DC Warfarin Sodium (Coumadin Protocol) NOTE 11/21/16 07:00 Warfarin Sodium (COUMADIN 2 mg) 2 mg NOON 11/21/16 12:00 11/21/16 12:30 DC 11/21/16 11:16 2 MG Carvedilol (Coreg) 25 mg BIDWM 11/21/16 10:45 11/30/16 09:11 25 MG Dorzolamide/ Timolol (Cosopt Ocumeter Plus) 1 drop DAILY 11/22/16 09:00 11/30/16 09:00 1 DROP Timolol Hemihydrate (Timoptic 0.5% Eye Drops) 1 drop BID 11/21/16 21:00 11/30/16 09:00 1 DROP Quetiapine Fumarate (Seroquel) 25 mg Q6HR PRN 11/21/16 19:00 11/22/16 18:12 DC 11/22/16 02:29 25 MG Quetiapine Fumarate (Seroquel) 12.5 mg HS 11/21/16 21:00 11/22/16 09:00 DC 11/21/16 19:07 12.5 MG Thiamine HCl (Vit. B1) 100 mg TID 11/22/16 09:00 11/30/16 14:40 100 MG Quetiapine Fumarate (Seroquel) 12.5 mg Q6HR PRN 11/22/16 18:15 11/22/16 23:50 12.5 MG Quetiapine Fumarate (Seroquel) 12.5 mg HS 11/22/16 21:00 11/26/16 15:37 DC 11/25/16 20:10 12.5 MG Warfarin Sodium (COUMADIN 5 mg) 5 mg NOON 11/23/16 12:00 11/23/16 12:15 DC 11/23/16 12:08 5 MG Albuterol/ Ipratropium (Duoneb) 3 ml BID 11/25/16 21:00 11/30/16 08:20 3 ML Furosemide (Lasix) 40 mg DAILY 11/26/16 09:00 11/30/16 09:11 40 MG Furosemide (Lasix) 20 mg 15 11/25/16 15:22 11/30/16 14:40 20 MG Warfarin Sodium (COUMADIN 3 mg) 3 mg NOON 11/26/16 12:00 11/26/16 12:30 DC 11/26/16 12:01 3 MG Quetiapine Fumarate (Seroquel) 12.5 mg BID 11/26/16 21:00 11/28/16 17:25 DC 11/28/16 08:01 12.5 MG Acetaminophen (Tylenol Regular Strength) 1-2 TABS Q5H PRN 11/27/16 06:30 Warfarin Sodium (COUMADIN 2.5 mg) 2.5 mg NOON 11/27/16 12:00 11/27/16 12:30 DC 11/27/16 11:46 2.5 MG Warfarin Sodium (COUMADIN 2.5 mg) 2.5 mg NOON 11/28/16 12:00 11/28/16 12:30 DC 11/28/16 11:58 2.5 MG Quetiapine Fumarate (Seroquel) 12.5 mg DAILY 11/29/16 09:00 11/30/16 09:11 12.5 MG Quetiapine Fumarate (Seroquel) 25 mg HS 11/28/16 21:00 11/29/16 20:04 25 MG Warfarin Sodium (COUMADIN 3 mg) 3 mg NOON 11/29/16 12:00 11/29/16 12:15 DC 11/29/16 12:12 3 MG Warfarin Sodium (COUMADIN 5 mg) 5 mg NOON 11/30/16 12:00 11/30/16 12:15 DC 11/30/16 12:19 5 MG Subjective Patient seen and chart reviewed. Case discussed with treatment team. Nursing reports pt has done well on the unit. Sleeping well and has a good appetite. No behaviors noted. On face to face the pt states he is doing well. Mood stable and denies any psychotic symptoms. Tolerating meds. Oriented x 2. Not sure of the date. Voices no concerns at this time Time of Service: 17:15 Start Time: 17:15 Stop Time: 17:30 Care >50% of this visit spent in counseling/coordination care. [facility] Exam Vitals Vital Signs Date Time Temp Pulse Resp B/P Pulse Ox O2 Delivery O2 Flow Rate FiO2 11/30/16 09:52 16 11/30/16 08:39 97.6 102 136/89 95 Room Air 11/29/16 23:21 2.00 Physical examination performed by the hospitalist. Height (Feet): 5 Height (Inches): 11.00 Mental Status Exam Muscle Strength/Tone: Normal Dressing: Casual Grooming: Good Attitude: Cooperative Motor Activity: Retardation Eye Contact: Fair Speech: Slowed Volume: Soft Rhythm: Appropriate Rhythm Sensory: Alert Orientation: Oriented to person, Oriented to place Mood: Neutral Affect: Congruent Rate of Thoughts: Delayed Thought Organization: [place] Associations: Intact Abstract Reasoning: Impaired, concrete Thought Content: Normal Perception/Psychotic: Hx psychosis,not current Attention Span/Concentration: Short Span Fund of Knowledge: Poor fund of knowledge Memory: Poor-immediate, Poor-recent, Poor-remote Suicidal Ideation: None Homicidal Ideation: None Insight: Fair Judgment: Fair Impulse Control: Fair Laboratory Tests Test 11/30/16 05:15 Prothromb Time International Ratio 1.70 Turbidity < 20 Sodium Level 142MEQ/L Potassium Level 3.6MEQ/L Chloride Level 106MEQ/L Carbon Dioxide Level 30MEQ/L Anion Gap 6MEQ/L Blood Urea Nitrogen 18.0MG/DL Creatinine 0.8MG/DL Glomerular Filtration Rate Calc 93 BUN/Creatinine Ratio 23RATIO Glucose Level 99MG/DL Calculated Osmolality 275MOSM/KG Calcium Level 9.2MG/DL Icterus Index < 2 Chemistry Specimen Hemolysis < 15 Assessment and Plan (1) 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 Plan: -Admit to [facility]. Obtain Vitamin B12 and folate. Observe patient in the unit. 11/21/16: Seroquel 12.5mg po qhs. Thiamine 100mg TID. 11/21/16: Cont Seroquel 12.5mg and also change PRN Seroquel to 12.5mg q6 prn agitation 11/22/16: Continue current care 11/24/16 Continue current care 11/25/16 Continue current care 11/26/16: Schedule Seroquel 12.5mg PO q in AM in addition to HS 11/27/16: Continue current care; plan to repeat SLUMS. 11/28/16: Increase Seroquel to 12.5mg PO q AM and 25mg PO q HS; monitor for improvement in thought blocking as well as signs of EPS. 11/29/16: Continue current care; thought blocking not evident today, no sign of increase in EPS with dose increase. 11/30/16 Continue current care Cont. current psych. meds EDWAR ADDISON MD Nov 30, 2016 17:31
--- NOTE | 2016-11-30 18:15 | NUR ---
Status Pt ate well at dinner, transferred well to recliner. Pt denies having any auditory hallucinations; no music that he is hearing. Has been polite and cooperative. Is currently sitting in recliner watching basketball, took evening meds with no issues.
[2016-11-30] MEDS: ATORVASTATIN 40 MG TABLET PO SCH (19:50)
[2016-11-30] MEDS: LATANOPROST 0.005% EYE DROPS 2.5 ML BOTTLE BOTH EYES SCH (19:50)
--- NOTE | 2016-12-01 00:17 | NUR ---
Chart Check 24 hour chart check completed
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
[2016-12-01 06:35] VITALS: O2SAT 100
[2016-12-01] MEDS: ALBUTEROL/IPRATROPIUM INHAL. 2.5mg-0.5mg/3ml Neb. AEROSOL SCH ×2 (07:08→18:35)
[2016-12-01 08:00] VITALS: BP 148/84; PULSE 92; RESP 20; TEMP 97.7; O2SAT 100
[2016-12-01 08:00] LABS: INR 1.55 (0.76-1.04); PROTHROMBIN TIME 16.9 SEC (9.31-12.49)
[2016-12-01] MEDS: POLYETHYL.GLYCOL 3350 PACKET 17gm PO SCH (08:15)
[2016-12-01] MEDS: CARVEDILOL 25 MG TABLET PO SCH ×2 (08:15→16:42)
[2016-12-01] MEDS: CILOSTAZOL 50 MG TABLET PO SCH (08:15)
[2016-12-01] MEDS: ASPIRIN 81 MG CHEWABLE TABLET PO SCH (08:15)
[2016-12-01] MEDS: THIAMINE 100 MG TABLET PO SCH ×3 (08:15→19:36)
[2016-12-01] MEDS: PANTOPRAZOLE 40 MG TABLET PO SCH (08:16)
[2016-12-01] MEDS: FUROSEMIDE 40 MG TABLET PO SCH (08:16)
[2016-12-01] MEDS: POTASSIUM CHLORIDE 20 MEQ TABLET PO SCH ×2 (08:17→16:42)
[2016-12-01] MEDS: QUETIAPINE 25 MG TABLET PO SCH ×2 (08:17→19:36)
[2016-12-01] MEDS: ESCITALOPRAM 10 MG TABLET PO SCH (08:17)
[2016-12-01] MEDS: DORZOLAMIDE BOTH EYES SCH (08:18)
[2016-12-01] MEDS: FLUTICASONE NASAL SPRAY 50 MCG EA NOSTRIL SCH (08:18)
[2016-12-01] MEDS: MAGNESIUM OXIDE 400 MG TABLET PO SCH ×2 (08:18→19:36)
[2016-12-01] MEDS: TIMOLOL EYE BOTH EYES SCH (08:18)
[2016-12-01] MEDS: TIMOLOL 0.5% EYE DROPS 5ml BOTH EYES SCH ×2 (08:18→19:37)
--- NOTE | 2016-12-01 09:09 | NUR ---
STATUS TAKEN REPORT AND CARE ASSUMED PT ALERT AND ORIENTED LAYING IN BED WITH EYES OPEN ON OXYGEN HEAD OF BED UP AND TOLERATING WELL. PATIENT IS ASSIST X2 AND HAS GOOD APPETITE ALL MORNING MEDICATION TAKEN WELL. WILL CONTINUE TO MONITOR.
[2016-12-01] MEDS ORDERED: ENOXAPARIN 40 MG/0.4 ML INJECTION SQ ONE (09:30)
--- NOTE | 2016-12-01 09:32 | PNPDOC ---
[facility] 12/01/16 0922: Subjective Date DATE: 12/01/16 TIME: 09:19 Subjective New was seen at the breakfast table. He is hard of hearing, but communicates well. He is still having some shortness of breath and a mild cough , but he is not needing oxygen this morning. Room air sats were 95%. He denies any chest pain. He denies abdominal pain or GI complaints. He wears TOM[employer]S hose for lower ext. edema. Nursing staff report that he's A&O to self. He has been largely cooperative but last night became anxious and agitated when another patient started to have behaviors. Objective Vital Signs Vital signs Vital Signs Date Time Temp Pulse Resp B/P Pulse Ox O2 Delivery O2 Flow Rate FiO2 12/01/16 08:00 97.7 92 20 148/84 100 Room Air 11/30/16 22:11 2.00 Height (Feet): 5 Height (Inches): 11.00 Weight (Kilograms): 86.500 General General Appearance: Alert, Orientated x 1, No Acute Distress Eyes (Brief) Eyes: NOT FOUND: scleral icterus Respiratory (Brief) Comments clear; but decreased air movement in right base Cardiovascular (Brief) Cardiac: FOUND: other (irregularly irregular), NOT FOUND: regular rate, regular rhythm Abdomen (Brief) Abdominal: FOUND: BS normo active x4, soft, NOT FOUND: tender Extremities (Brief) Extremity : Side: Bilateral Extremity: leg, foot Extremity Finding: FOUND: edema (3+) Musculoskeletal (Brief) Musculoskeletal: NOT FOUND: deformity Integumentary (Brief) Integumentary: FOUND: dry, warm Neurologic (Brief) Neurological: FOUND: other (Parkinsonian tremor to right hand) Psychiatric (Brief) Psychiatric: FOUND: alert, attentive, normal affect, oriented (x1) Laboratory Laboratory Laboratory Tests 11/30/16 05:15 Assessment & Plan Problems: (1) Pulmonary edema Status: Acute (2) Hypophosphatemia Status: Acute (3) Hypokalemia Status: Acute (4) Atrial fibrillation, chronic Status: Chronic (5) Aspiration pneumonia Status: Resolved Qualifiers: Aspiration pneumonia type: unspecified Laterality: bilateral Lung location: lower lobe of lung Qualified Codes: J69.0 - Pneumonitis due to inhalation of food and vomit (6) Schizophrenia, unspecified Status: Chronic (7) Alzheimer's dementia without behavioral disturbance Status: Chronic (8) Ambulatory dysfunction Status: Chronic (9) Hypertension Status: Chronic (10) ASHD (arteriosclerotic heart disease) Status: Chronic (11) Hyperlipidemia Status: Chronic (12) GERD (gastroesophageal reflux disease) Status: Chronic (13) CKD (chronic kidney disease) Status: Chronic (14) Parkinsonian tremor Status: Chronic (15) Cardiomegaly Status: Chronic (16) Alcohol use disorder, severe, in sustained remission, in controlled environment Status: Chronic Plan/Intensity of Service CXR on 11/29/16 was essentially unchanged from the one on 11/25/16. Patient is improving from a clinical standpoint. Nursing staff is working on weaning him off oxygen - he was on room air during breakfast this morning. Continue DuoNebs. INRs have been subtherapeutic - will give dose of prophylactic Lovenox today. Renal function has been stable. Repeat BMP, mg, and phos on 12/03/16. BP moderately elevated but would not recommend adjusting or increasing antihypertensives d/t Parkinsonian symptoms. Psych progress notes reviewed - poss Lewy body dementia. No recent med changes. DVT Prophylaxis: Lovenox, Coumadin Code Status Do Not Resuscitate Hospital Course Summary Disclaimer The hospital course summary below is not to be considered part of the above Progress Note. Hospital Course Summary 11/21/16 Agree with admission to [facility] for ongoing psychiatric care and treatment recommendations It is reported that patient has have a significant cognitive decline over the past 6 months. It is unclear regarding the length at which patient has had tremor/rigidity. He did have psychosis and was prescribed Zyprexa initially. However, this has been held since admission to the hospital. PT was consulted given that patient is requiring a lift for transfers. It is unclear if this is patient's baseline. Noted to have a cough as well as increase in WBC count today to 13.7 from 8.9 yesterday. Will recheck a Chest Xray today. Will also recheck UA to rule out infection Continues on Clindamycin antibiotic for treatment of Pneumonia. End date for 2 week course. INR today is 1.94, Continue with Coumadin daily via pharmacy dosing/management. Will give one time dose of oral potassium supplementation given mild hypokalemia of 3.5 Continue with Coreg 25mg BID for rate control Recheck CBC and BMP tomorrow 11/22/16 Appears to be less anxious and agitated this morning following dose of Seroquel overnight. WBC count continues to be mildly elevated. Again asked nursing staff to obtain a urinalysis that was ordered yesterday. Continues on Clindamycin antibiotic for treatment of Pneumonia. End date for 2 week course. Blood pressure continues to be intermittently elevated. Continue on Coreg 25 twice a day, will continue to monitor Hypokalemia, improved following oral supplementation. Recheck CBC and BMP tomorrow 11/24/16: Edwin. Nursing reported that New was complaining of feeling short of breath today with pulse ox 100% on room air. he was started on supplemental oxygen for comfort. Lung sounds revealed rhonchi initially which cleared with self forced cough revealing bilateral basilar crackles. He continues on clindamycin for prior pneumonia with treatment to be complete tomorrow (11/25/16). Will repeat CXR and monitor closely for signs of deterioration. Continue with psychiatric care per Dr. Dixon. Continue to provide safe and supportive environment. No new labs. Previous WBC trending down. Will recheck CBC and BMP in AM to monitor blood counts, electrolytes and renal function In light of edema, will monitor daily weights for signs of fluid over load. UA on 11/22 was unremarkable. Blood pressure stable. Continue with treatment. Mucinex added for mucolytic. 11/25/16- Pt. was reporting an increase in SOA yesterday. Note is reviewed. His CXR still shows infiltrate and edema, but is slowly improving. Increase Lasix to 40am, 20pm, continue current KCL. BP should support. Clinda to finish today- observe progress off the antibiotics. Is wearing O2 for comfort. Appears to have some atelectasis- increase nebs to BID and PRN. repeat labs and CXR-2 view in AM to better visualize what is going on in the lung. Chronic AFib on Warfarin- Pharmacy monitoring. Continue supportive care via primary team for psychiatric concerns. Chart is reviewed. 11/27 Respiratory status seems to be slowly improving. He is on oxygen at 2 L and sats are maintained in the 90s. Chest x-ray done on 11/26/2016 showed improving pulmonary edema and improving pneumonia. Antibiotics have been discontinued by hospitalist physician. It was recommended that patient have a repeat chest x- ray later this week or even consider pushing that out if remains clinically stable for another 1-2 weeks. Patient had an increased dose of Lasix 2 days ago with 40 mg now being given in the morning and 20 mg in the afternoon. Continue to follow potassium trending, this morning it was 3.5, he is being replaced with 20 mEq twice daily. BNP had been ordered for today and was 2248 which is better than the 3 previous readings we have on this patient. INR being monitored daily, this morning 2.73. Coumadin dosing per pharmacy. Psychiatric management per [facility] team. 11/29/16 Last chest Xray was on 11/25 which indicated improved pulmonary edema Will have staff and RT work on weaning down oxygen. Continue with DuoNeb BID Continue to trend weight, have asked staff to weight patient today. Continue with Lasix 40 mg in the am and 20 mg at 1500. PO potassium supplementation. Will recheck BMP tomorrow am to follow renal function and electrolytes Psychiatric management per [facility] team. 12/01/16 CXR on 11/29/16 was essentially unchanged from the one on 11/25/16. Patient is improving from a clinical standpoint. Nursing staff is working on weaning him off oxygen - he was on room air during breakfast this morning. Continue DuoNebs. INRs have been subtherapeutic - will give dose of prophylactic Lovenox today. Renal function has been stable. Repeat BMP, mg, and phos on 12/03/16. BP moderately elevated but would not recommend adjusting or increasing antihypertensives d/t Parkinsonian symptoms. Psych progress notes reviewed - poss Lewy body dementia. No recent med changes. MEETA DOWD MD 12/01/162020: Assessment & Plan Assessment I have independently evaluated and examined this patient. I reviewed the chart, the patient's history, and the [facility]'s documented findings as above. We discussed and formulated the assessment and plan as above with additions as below: Mr. Garay complains of pain in his arms and legs; he has chronic arthritis and right knee was injected by or toe during acute hospital stay. He denied dyspnea and is oxygenating well on room air at 98-100% this afternoon but is concerned that he'll "get his dose of oxygen tonight". Exam: Breath sounds are decreased throughout but there is no wheezing or crackles appreciated. Cardiac rhythm is irregular. No rest tremor at time of evaluation Chest x-ray from 11/29 reviewed by myself, small pleural effusions but no evidence of pulmonary edema. INR subtherapeutic-dose adjusted earlier today, continue to monitor. Slow progress. LINH NORWOOD APRN Dec 01, 2016 09:22 MEETA DOWD MD Dec 01, 2016 20:21
--- NOTE | 2016-12-01 10:48 | NUR ---
WARFARIN CONSULT S: 76 y/o M on warfarin for afib; home dose is 5.5 mg daily. Goal INR 2-3. O: Date INR Warfarin Dose 11/12 5.68 HELD 11/13 5.72 HELD 11/14 5.07 HELD 11/15 5.38 HELD...VITAMIN K 1 MG PO GIVEN 11/16 3.39 HELD 11/17 1.55 3 mg 11/18 1.55 4 mg 11/19 2.31 1 mg 11/20 1.97 2 mg 11/21 1.94 2 mg 11/22 1.83 3 mg 11/23 1.61 5 mg 11/24 1.95 4 mg 11/25 2.51 3 mg 11/26 2.73 3 mg 11/27 2.85 2.5 mg 11/28 2.76 2.5 mg 11/29 1.91 3 mg 11/30 1.70 5 mg 12/01 1.55 plan: 5 mg A/P: The INR is subtherapeutic. Will give warfarin 5 mg PO today. The Pharmacy will continue to monitor & make adjustments accordingly. Thank you for the consult, Arabella Chau RPh
--- NOTE | 2016-12-01 11:07 | GENPN ---
[facility] Subjective Date DATE: 12/01/16 TIME: 11:04 Subjective/Severity of Illness Medications Current Medications Medications (Trade) Dose Ordered Sig/Lilly Start Time Stop Time Status Last Admin Dose Admin Acetaminophen (Tylenol Regular Strength) 1-2 tabs PRN for pain Q5H PRN 11/20/16 22:00 11/29/16 09:03 650 MG Aspirin (ASA) 81 mg DAILY 11/21/16 09:00 12/01/16 08:15 81 MG Atorvastatin Calcium (LIPITOR 40 mg) 40 mg HS 11/21/16 21:00 11/30/16 19:50 40 MG Cilostazol (Pletal 50 Mg) 50 mg ACB30 11/21/16 07:30 12/01/16 08:15 50 MG Clindamycin HCl (Cleocin) 300 mg TID 11/21/16 09:00 11/25/16 21:01 DC 11/25/16 20:08 300 MG Escitalopram Oxalate (LEXAPRO 10mg) 10 mg DAILY 11/21/16 09:00 12/01/16 08:17 10 MG Fluticasone Propionate (Flonase) 1 spray DAILY 11/21/16 09:00 12/01/16 08:18 1 SPRAY Furosemide (Lasix) 20 mg 08,14 11/21/16 08:00 11/25/16 15:19 DC 11/25/16 15:12 20 MG Albuterol/ Ipratropium (Duoneb) 3 ml BID PRN 11/20/16 22:00 11/25/16 15:19 DC 11/23/16 19:50 3 ML Albuterol/ Ipratropium (Duoneb) 3 ml Q2HR PRN 11/20/16 22:00 11/28/16 16:36 3 ML Latanoprost (Xalatan) 1 drop HS 11/21/16 21:00 11/30/16 19:50 1 DROP Magnesium Oxide (Magox) 400 mg BID 11/21/16 09:00 12/01/16 08:18 400 MG Pantoprazole Sodium (Protonix) 40 mg DAILY 11/21/16 09:00 12/01/16 08:16 40 MG Polyethylene Glycol (Miralax) 17 g Q2D@09 11/21/16 09:00 12/01/16 08:15 17 G Potassium Chloride (Kdur) 20 meq BIDWM 11/21/16 08:00 12/01/16 08:17 20 MEQ Miscellaneous Medication (May use PRN orders) 1 PRN PRN 11/20/16 22:00 Haloperidol (Haldol) 0.5 mg Q6H PRN 11/20/16 22:00 11/21/16 19:02 DC 11/21/16 18:52 0.5 MG Lorazepam (Ativan) 0.5 mg Q6H PRN 11/20/16 22:00 11/26/16 14:59 0.5 MG Lorazepam (Ativan) 0.5 mg Q6H PRN 11/20/16 22:00 Haloperidol Lactate (Haldol 5 Mg/ml Inj) 0.5 mg Q6H PRN 11/20/16 22:00 11/21/16 19:02 DC Warfarin Sodium (Coumadin Protocol) NOTE 11/21/16 07:00 Warfarin Sodium (COUMADIN 2 mg) 2 mg NOON 11/21/16 12:00 11/21/16 12:30 DC 11/21/16 11:16 2 MG Carvedilol (Coreg) 25 mg BIDWM 11/21/16 10:45 12/01/16 08:15 25 MG Dorzolamide/ Timolol (Cosopt Ocumeter Plus) 1 drop DAILY 11/22/16 09:00 12/01/16 08:18 1 DROP Timolol Hemihydrate (Timoptic 0.5% Eye Drops) 1 drop BID 11/21/16 21:00 12/01/16 08:18 1 DROP Quetiapine Fumarate (Seroquel) 25 mg Q6HR PRN 11/21/16 19:00 11/22/16 18:12 DC 11/22/16 02:29 25 MG Quetiapine Fumarate (Seroquel) 12.5 mg HS 11/21/16 21:00 11/22/16 09:00 DC 11/21/16 19:07 12.5 MG Thiamine HCl (Vit. B1) 100 mg TID 11/22/16 09:00 12/01/16 08:15 100 MG Quetiapine Fumarate (Seroquel) 12.5 mg Q6HR PRN 11/22/16 18:15 11/22/16 23:50 12.5 MG Quetiapine Fumarate (Seroquel) 12.5 mg HS 11/22/16 21:00 11/26/16 15:37 DC 11/25/16 20:10 12.5 MG Warfarin Sodium (COUMADIN 5 mg) 5 mg NOON 11/23/16 12:00 11/23/16 12:15 DC 11/23/16 12:08 5 MG Albuterol/ Ipratropium (Duoneb) 3 ml BID 11/25/16 21:00 12/01/16 07:08 3 ML Furosemide (Lasix) 40 mg DAILY 11/26/16 09:00 12/01/16 08:16 40 MG Furosemide (Lasix) 20 mg 15 11/25/16 15:22 11/30/16 14:40 20 MG Warfarin Sodium (COUMADIN 3 mg) 3 mg NOON 11/26/16 12:00 11/26/16 12:30 DC 11/26/16 12:01 3 MG Quetiapine Fumarate (Seroquel) 12.5 mg BID 11/26/16 21:00 11/28/16 17:25 DC 11/28/16 08:01 12.5 MG Acetaminophen (Tylenol Regular Strength) 1-2 TABS Q5H PRN 11/27/16 06:30 Warfarin Sodium (COUMADIN 2.5 mg) 2.5 mg NOON 11/27/16 12:00 11/27/16 12:30 DC 11/27/16 11:46 2.5 MG Warfarin Sodium (COUMADIN 2.5 mg) 2.5 mg NOON 11/28/16 12:00 11/28/16 12:30 DC 11/28/16 11:58 2.5 MG Quetiapine Fumarate (Seroquel) 12.5 mg DAILY 11/29/16 09:00 12/01/16 08:17 12.5 MG Quetiapine Fumarate (Seroquel) 25 mg HS 11/28/16 21:00 11/30/16 19:50 25 MG Warfarin Sodium (COUMADIN 3 mg) 3 mg NOON 11/29/16 12:00 11/29/16 12:15 DC 11/29/16 12:12 3 MG Warfarin Sodium (COUMADIN 5 mg) 5 mg NOON 11/30/16 12:00 11/30/16 12:15 DC 11/30/16 12:19 5 MG Warfarin Sodium (COUMADIN 5 mg) 5 mg NOON 12/01/16 12:00 12/01/16 12:01 Subjective Patient seen and chart reviewed. Case discussed with nursing. Nursing reports pt is doing well. Sleeping well and has a good appetite. No behaviors noted. On face to face the pt is resting quietly. Pt states he is doing well and voices no concerns. Oriented x 2. Not sure of the date. Denies psychotic symptoms. Tolerating meds Time of Service: 09:45 Start Time: 09:45 Stop Time: 10:00 Care >50% of this visit spent in counseling/coordination care. [facility] Exam Vitals Vital Signs Date Time Temp Pulse Resp B/P Pulse Ox O2 Delivery O2 Flow Rate FiO2 12/01/16 08:00 97.7 92 20 148/84 100 Room Air 11/30/16 22:11 2.00 Physical examination performed by the hospitalist. Height (Feet): 5 Height (Inches): 11.00 Mental Status Exam Muscle Strength/Tone: Weak Dressing: Casual Grooming: Good Attitude: Cooperative Motor Activity: Retardation Eye Contact: Good Speech: Slowed Volume: Soft Rhythm: Appropriate Rhythm Sensory: Alert Orientation: Oriented to person, Oriented to place Mood: Neutral Affect: Congruent Rate of Thoughts: Delayed Thought Organization: [employer]ations: Intact Abstract Reasoning: Impaired, concrete Thought Content: Normal Perception/Psychotic: Perception Normal Attention Span/Concentration: Short Span Fund of Knowledge: Poor fund of knowledge Memory: Poor-immediate, Poor-recent Suicidal Ideation: None Homicidal Ideation: None Insight: Limited Judgment: Limited Impulse Control: Fair Laboratory Tests Test 12/01/16 05:54 Prothromb Time International Ratio 1.55 Assessment and Plan (1) 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 Plan: -Admit to [facility]. Obtain Vitamin B12 and folate. Observe patient in the unit. 11/21/16: Seroquel 12.5mg po qhs. Thiamine 100mg TID. 11/21/16: Cont Seroquel 12.5mg and also change PRN Seroquel to 12.5mg q6 prn agitation 11/22/16: Continue current care 3/11/17 Continue current care 11/25/16 Continue current care 11/26/16: Schedule Seroquel 12.5mg PO q in AM in addition to HS 11/27/16: Continue current care; plan to repeat SLUMS. 11/28/16: Increase Seroquel to 12.5mg PO q AM and 25mg PO q HS; monitor for improvement in thought blocking as well as signs of EPS. 11/29/16: Continue current care; thought blocking not evident today, no sign of increase in EPS with dose increase. 11/30/16 Continue current care 12/01/16 Continue current care Cont. current psych. meds EDWAR ADDISON MD Dec 01, 2016 11:07
[2016-12-01] MEDS ORDERED: WARFARIN 5 MG TABLET PO SCH (12:00)
--- NOTE | 2016-12-01 12:05 | NUR ---
MID SHIFT SEATED AT THE TABLE WATCHING TV AFTER LUNCH PT ALERT AND ORIENTED ABLE TO MAKE NEEDS KNOWN TO STAFF FEEDS SELF AND HAS GREAT APPETITE ET WITHOUT OXYGEN AND SAT ABOVE 95% NO DISTRESS TOOK A LL WELL VERY COMPLIANT WITH CARE . NO BEHAVIORS NOTED AT THIS TIME. WILL CONTINUE TO MONITOR.
[2016-12-01] MEDS: FUROSEMIDE 20 MG TABLET PO SCH (14:48)
--- NOTE | 2016-12-01 15:58 | NUR ---
NURSING DENIES PAIN NO DISTRESS PT WATCHING BASKETBALL AND TALKING TO STAFF IN PLEASANT MOOD NO COMPLAIN OF PAIN NO DISTRESS. WILL MONITOR.
[2016-12-01 16:00] VITALS: BP 160/90; PULSE 95; RESP 20; TEMP 97.2; O2SAT 98
--- NOTE | 2016-12-01 18:17 | NUR ---
END SHIFT PATIENT BEING UP MOST OF THE DAY WATCHING TELEVISION CONTINUES TO HAVE A DRY COUGH BLE EDEMATOUS ET ALERT WITH CONFUSION PT IS CONTINENT OF BOWEL AND BLADDER. NO VERBAL / PHYSICAL AGGRESSION TOWARDS STAFF OR OTHER PATIENTS NO PRN GIVEN THIS SHIFT. LAYING IN BED WITH THREE SIDE RAILS UP ASSIST X2 WITH CARE.
--- NOTE | 2016-12-01 19:30 | NUR ---
PRN Pt was complaining of SOA, presenting with increased anxiety. Vitals obtained with following results BP 152/87, P 107, O2 98% on 2L NC, and RR 20. PRN Ativan 0.5 mg given at 1937 for increased anxiety. Will continue to monitor
[2016-12-01] MEDS: ATORVASTATIN 40 MG TABLET PO SCH (19:36)
[2016-12-01] MEDS: LATANOPROST 0.005% EYE DROPS 2.5 ML BOTTLE BOTH EYES SCH (19:37)
[2016-12-01] MEDS: LORAZEPAM 0.5 MG TABLET PO PRN (19:37)
[2016-12-01 19:45] VITALS: BP 152/87; PULSE 107; RESP 20; TEMP 98.2; O2SAT 98
--- NOTE | 2016-12-01 20:30 | NUR ---
PRN f/u Pt resting comfortably, sleeping at this time and snoring. No further signs of distress or anxiety. PRN medication successful. Spoke with Dr Christian at 2014 about pt status along with vitals. He stated to continue to monitor at this time. Bed rails up and alarm on. Will continue to monitor
[2016-12-01 21:03] VITALS: PULSE 107; RESP 20
[2016-12-02] VITALS (7 sets, daily range): BP systolic 117–166; BP diastolic 72–108; PULSE 84–98; RESP 14–22; TEMP 97.6–98; O2SAT 95–100
--- NOTE | 2016-12-02 00:22 | NUR ---
Chart Check 24 hour chart check completed
--- NOTE | 2016-12-02 00:22 | NUR ---
Mid shift status Pt was lying in his bed at beginning of shift. Pt alert to person. Up assist x 2 to transfer. Pt denies pain. Shortly after coming on shift, pt appeared anxious with slight shaking and c/o SOA, stating "I am having a hard time breathing". Pt vitals obtained. Pulse high at 107, BP at 152/87 and RR at 20. Pt stated he was feeling anxious. Currently on 2L O2 at night with O2 sat at 98%. PRN Ativan 0.5 mg given for increased anxiety. PRN successful as it allowed pt to calm and go to sleep. Spoke with Dr Christian about pt status. Told to continue monitoring at that time. Pt denies hallucinations. No display of verbal or physical aggression. Pt currently sleeping. Bed rails up x 2 and alarm on. Will continue to monitor
--- NOTE | 2016-12-02 06:11 | NUR ---
Summary Pt slept 9.00 hours this shift. Alert to person. Up assist x 2. Pt has not exhibited any further signs of distress, SOA, or anxiety since PRN Ativan given. See PRN note. Pt given bed bath this shift. Currently on 2L O2 at night. Pt has been incontinent. No changes since last status note. No verbal or physical aggression displayed. Denies auditory hallucinations. Currently sleeping. Bed rails up x 2 and alarm on. Will continue to monitor
[2016-12-02 06:39] LABS: INR 1.6 (0.76-1.04); PROTHROMBIN TIME 17.4 SEC (9.31-12.49)
[2016-12-02] MEDS: ALBUTEROL/IPRATROPIUM INHAL. 2.5mg-0.5mg/3ml Neb. AEROSOL SCH ×2 (07:16→19:50)
--- NOTE | 2016-12-02 07:37 | NUR ---
WARFARIN CONSULT: today's dose= 5 mg S: 76 y/o M on warfarin for afib; home dose is 5.5 mg daily. Goal INR 2-3. O: Date INR Warfarin Dose 11/12 5.68 HELD 11/13 5.72 HELD 11/14 5.07 HELD 11/15 5.38 HELD...VITAMIN K 1 MG PO GIVEN 11/16 3.39 HELD 11/17 1.55 3 mg 11/18 1.55 4 mg 11/19 2.31 1 mg 11/20 1.97 2 mg 11/21 1.94 2 mg 11/22 1.83 3 mg 11/23 1.61 5 mg 11/24 1.95 4 mg 11/25 2.51 3 mg 11/26 2.73 3 mg 11/27 2.85 2.5 mg 11/28 2.76 2.5 mg 11/29 1.91 3 mg 11/30 1.70 5 mg 12/01 1.55 5 mg 12/02 1.60 plan: 5 mg A/P: The INR is subtherapeutic. Will give warfarin 5 mg PO today. The Pharmacy will continue to monitor & make adjustments accordingly. Thank you for the consult, Arabella Chau RPh
[2016-12-02] MEDS: CILOSTAZOL 50 MG TABLET PO SCH (08:57)
[2016-12-02] MEDS: ESCITALOPRAM 10 MG TABLET PO SCH (08:57)
[2016-12-02] MEDS: MAGNESIUM OXIDE 400 MG TABLET PO SCH ×2 (08:57→19:45)
[2016-12-02] MEDS: PANTOPRAZOLE 40 MG TABLET PO SCH (08:57)
[2016-12-02] MEDS: THIAMINE 100 MG TABLET PO SCH ×3 (08:57→19:45)
[2016-12-02] MEDS: CARVEDILOL 25 MG TABLET PO SCH ×2 (08:58→17:24)
[2016-12-02] MEDS: POTASSIUM CHLORIDE 20 MEQ TABLET PO SCH ×2 (08:58→17:25)
[2016-12-02] MEDS: QUETIAPINE 25 MG TABLET PO SCH ×2 (08:58→19:45)
[2016-12-02] MEDS: FLUTICASONE NASAL SPRAY 50 MCG EA NOSTRIL SCH (08:58)
[2016-12-02] MEDS: ASPIRIN 81 MG CHEWABLE TABLET PO SCH (08:58)
[2016-12-02] MEDS: TIMOLOL 0.5% EYE DROPS 5ml BOTH EYES SCH ×2 (08:58→19:46)
[2016-12-02] MEDS: FUROSEMIDE 40 MG TABLET PO SCH (08:58)
[2016-12-02] MEDS: TIMOLOL EYE BOTH EYES SCH (08:59)
[2016-12-02] MEDS: DORZOLAMIDE BOTH EYES SCH (08:59)
[2016-12-02] MEDS: ACETAMINOPHEN 325 MG TABLET PO PRN (10:23)
--- NOTE | 2016-12-02 11:37 | GENPN ---
[facility] Subjective Date DATE: 12/02/16 TIME: 11:28 Subjective/Severity of Illness Medications Current Medications Medications (Trade) Dose Ordered Sig/Lilly Start Time Stop Time Status Last Admin Dose Admin Acetaminophen (Tylenol Regular Strength) 1-2 tabs PRN for pain Q5H PRN 11/20/16 22:00 12/02/16 10:23 650 MG Aspirin (ASA) 81 mg DAILY 11/21/16 09:00 12/02/16 08:58 81 MG Atorvastatin Calcium (LIPITOR 40 mg) 40 mg HS 11/21/16 21:00 12/01/16 19:36 40 MG Cilostazol (Pletal 50 Mg) 50 mg ACB30 11/21/16 07:30 12/02/16 08:57 50 MG Clindamycin HCl (Cleocin) 300 mg TID 11/21/16 09:00 11/25/16 21:01 DC 11/25/16 20:08 300 MG Escitalopram Oxalate (LEXAPRO 10mg) 10 mg DAILY 11/21/16 09:00 12/02/16 08:57 10 MG Fluticasone Propionate (Flonase) 1 spray DAILY 11/21/16 09:00 12/02/16 08:58 1 SPRAY Furosemide (Lasix) 20 mg 08,14 11/21/16 08:00 11/25/16 15:19 DC 11/25/16 15:12 20 MG Albuterol/ Ipratropium (Duoneb) 3 ml BID PRN 11/20/16 22:00 11/25/16 15:19 DC 11/23/16 19:50 3 ML Albuterol/ Ipratropium (Duoneb) 3 ml Q2HR PRN 11/20/16 22:00 11/28/16 16:36 3 ML Latanoprost (Xalatan) 1 drop HS 11/21/16 21:00 12/01/16 19:37 1 DROP Magnesium Oxide (Magox) 400 mg BID 11/21/16 09:00 12/02/16 08:57 400 MG Pantoprazole Sodium (Protonix) 40 mg DAILY 11/21/16 09:00 12/02/16 08:57 40 MG Polyethylene Glycol (Miralax) 17 g Q2D@09 11/21/16 09:00 12/01/16 08:15 17 G Potassium Chloride (Kdur) 20 meq BIDWM 11/21/16 08:00 12/02/16 08:58 20 MEQ Miscellaneous Medication (May use PRN orders) 1 PRN PRN 11/20/16 22:00 Haloperidol (Haldol) 0.5 mg Q6H PRN 11/20/16 22:00 11/21/16 19:02 DC 11/21/16 18:52 0.5 MG Lorazepam (Ativan) 0.5 mg Q6H PRN 11/20/16 22:00 12/01/16 19:37 0.5 MG Lorazepam (Ativan) 0.5 mg Q6H PRN 11/20/16 22:00 Haloperidol Lactate (Haldol 5 Mg/ml Inj) 0.5 mg Q6H PRN 11/20/16 22:00 11/21/16 19:02 DC Warfarin Sodium (Coumadin Protocol) NOTE 11/21/16 07:00 Warfarin Sodium (COUMADIN 2 mg) 2 mg NOON 11/21/16 12:00 11/21/16 12:30 DC 11/21/16 11:16 2 MG Carvedilol (Coreg) 25 mg BIDWM 11/21/16 10:45 12/02/16 08:58 25 MG Dorzolamide/ Timolol (Cosopt Ocumeter Plus) 1 drop DAILY 11/22/16 09:00 12/02/16 08:59 1 DROP Timolol Hemihydrate (Timoptic 0.5% Eye Drops) 1 drop BID 11/21/16 21:00 12/02/16 08:58 1 DROP Quetiapine Fumarate (Seroquel) 25 mg Q6HR PRN 11/21/16 19:00 11/22/16 18:12 DC 11/22/16 02:29 25 MG Quetiapine Fumarate (Seroquel) 12.5 mg HS 11/21/16 21:00 11/22/16 09:00 DC 11/21/16 19:07 12.5 MG Thiamine HCl (Vit. B1) 100 mg TID 11/22/16 09:00 12/02/16 08:57 100 MG Quetiapine Fumarate (Seroquel) 12.5 mg Q6HR PRN 11/22/16 18:15 11/22/16 23:50 12.5 MG Quetiapine Fumarate (Seroquel) 12.5 mg HS 11/22/16 21:00 11/26/16 15:37 DC 11/25/16 20:10 12.5 MG Warfarin Sodium (COUMADIN 5 mg) 5 mg NOON 11/23/16 12:00 11/23/16 12:15 DC 11/23/16 12:08 5 MG Albuterol/ Ipratropium (Duoneb) 3 ml BID 11/25/16 21:00 12/02/16 07:16 3 ML Furosemide (Lasix) 40 mg DAILY 11/26/16 09:00 12/02/16 08:58 40 MG Furosemide (Lasix) 20 mg 15 11/25/16 15:22 12/01/16 14:48 20 MG Warfarin Sodium (COUMADIN 3 mg) 3 mg NOON 11/26/16 12:00 11/26/16 12:30 DC 11/26/16 12:01 3 MG Quetiapine Fumarate (Seroquel) 12.5 mg BID 11/26/16 21:00 11/28/16 17:25 DC 11/28/16 08:01 12.5 MG Acetaminophen (Tylenol Regular Strength) 1-2 TABS Q5H PRN 11/27/16 06:30 Warfarin Sodium (COUMADIN 2.5 mg) 2.5 mg NOON 11/27/16 12:00 11/27/16 12:30 DC 11/27/16 11:46 2.5 MG Warfarin Sodium (COUMADIN 2.5 mg) 2.5 mg NOON 11/28/16 12:00 11/28/16 12:30 DC 11/28/16 11:58 2.5 MG Quetiapine Fumarate (Seroquel) 12.5 mg DAILY 11/29/16 09:00 12/02/16 08:58 12.5 MG Quetiapine Fumarate (Seroquel) 25 mg HS 11/28/16 21:00 12/01/16 19:36 25 MG Warfarin Sodium (COUMADIN 3 mg) 3 mg NOON 11/29/16 12:00 11/29/16 12:15 DC 11/29/16 12:12 3 MG Warfarin Sodium (COUMADIN 5 mg) 5 mg NOON 11/30/16 12:00 11/30/16 12:15 DC 11/30/16 12:19 5 MG Warfarin Sodium (COUMADIN 5 mg) 5 mg NOON 12/01/16 12:00 12/01/16 12:01 DC 12/01/16 11:32 5 MG Warfarin Sodium (COUMADIN 5 mg) 5 mg NOON 12/02/16 12:00 12/02/16 12:01 Subjective Patient seen and chart reviewed. Case discussed with nursing. Nursing reports pt had some anxiety last night and was given Ativan at 1937 which was helpful. Pt slept 9 hours and has a good appetite. On face to face the pt states he is doing well. He reports his mood is stable and he denies any psychotic symptoms. Tolerating meds. Oriented x 2. Time of Service: 10:45 Start Time: 10:45 Stop Time: 11:00 Care >50% of this visit spent in counseling/coordination care. [facility] Exam Vitals Vital Signs Date Time Temp Pulse Resp B/P Pulse Ox O2 Delivery O2 Flow Rate FiO2 12/02/16 09:54 124/72 12/02/16 08:40 97.7 93 18 100 Nasal Cannula 2.00 Physical examination performed by the hospitalist. Height (Feet): 5 Height (Inches): 11.00 Mental Status Exam Muscle Strength/Tone: Normal Dressing: Casual Grooming: Good Attitude: Cooperative Motor Activity: Normal, Retardation Eye Contact: Good Speech: Slowed Volume: Soft Rhythm: Appropriate Rhythm Sensory: Alert Orientation: Oriented to person, Oriented to place Mood: Neutral Affect: Congruent Rate of Thoughts: Delayed Thought Organization: [employer] Abstract Reasoning: Intact, able to abstract Thought Content: Normal Perception/Psychotic: Hx psychosis,not current Attention Span/Concentration: Short Span Fund of Knowledge: Poor fund of knowledge Memory: Poor-immediate, Poor-recent Suicidal Ideation: None Homicidal Ideation: None Insight: Fair Judgment: Fair Impulse Control: Fair Laboratory Tests Test 12/02/16 05:43 Prothromb Time International Ratio 1.60 Assessment and Plan (1) 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 Plan: -Admit to [facility]. Obtain Vitamin B12 and folate. Observe patient in the unit. 11/21/16: Seroquel 12.5mg po qhs. Thiamine 100mg TID. 11/21/16: Cont Seroquel 12.5mg and also change PRN Seroquel to 12.5mg q6 prn agitation 11/22/16: Continue current care 11/24/16 Continue current care 11/25/16 Continue current care 11/26/16: Schedule Seroquel 12.5mg PO q in AM in addition to HS 11/27/16: Continue current care; plan to repeat SLUMS. 11/28/16: Increase Seroquel to 12.5mg PO q AM and 25mg PO q HS; monitor for improvement in thought blocking as well as signs of EPS. 11/29/16: Continue current care; thought blocking not evident today, no sign of increase in EPS with dose increase. 11/30/16 Continue current care 12/01/16 Continue current care 12/02/16 Continue current care Cont. current psych. meds EDWAR ADDISON MD Dec 02, 2016 11:34
[2016-12-02] MEDS ORDERED: WARFARIN 5 MG TABLET PO SCH (12:00)
[2016-12-02] MEDS: FUROSEMIDE 20 MG TABLET PO SCH (14:20)
--- NOTE | 2016-12-02 19:30 | NUR ---
SUMMARY Pt has been pleasant, cooperative with cares, compliant with medications. No hallucinations noted, no aggressive or inappropriate behaviors noted. No PRN medication given, pt slept 2 hr this shift. Pt has been on RA, his O2sats have been above 90 % at all times. Pt performed Incentive spirometer well today, he does need to be reminded on how to use it. Pt has been out in the day room most of the shift. Speech is delay, clear and appropriate, he is deaf and [employer] [place] [employer] on his Right ear. Pt denies needs or concerns at the moment.
[2016-12-02] MEDS: LATANOPROST 0.005% EYE DROPS 2.5 ML BOTTLE BOTH EYES SCH (19:45)
[2016-12-02] MEDS: ATORVASTATIN 40 MG TABLET PO SCH (19:45)
[2016-12-03] VITALS (7 sets, daily range): BP systolic 142–165; BP diastolic 85–91; PULSE 89–114; RESP 16–18; TEMP 97.1–98.2; O2SAT 96–100
--- NOTE | 2016-12-03 00:07 | NUR ---
Chart Check 24 hour chart check completed
--- NOTE | 2016-12-03 00:35 | NUR ---
Mid shift status Pt was sitting in day room at beginning of shift. Pt pleasant and cooperative. Shortly after coming on shift, pt stated he was ready for bed. Encouraged pt to stay up until he received his HS meds. Pt agreed. Pt alert to person. Up assist x 2. Denies pain. Denies SOA. RT provided breathing treatment prior to bed. Pt remained off of O2 during day. Currently on 2L O2 NC at night for pt comfort. Pt did not exhibit any anxiety. No displays of verbal or physical aggression. Pt did become a bit agitated during cares when staff placed pt on toilet. Pt stated he did not want to sit on toilet. Pt did have a BM and void in the toilet at that time. No PRNS given at this time. Currently sleeping. Bed rails up x 2 and alarm on. Will continue to monitor
--- NOTE | 2016-12-03 06:20 | NUR ---
Summary Pt slept 8.25 hours this shift. Pt alert to person. Up assist x 2. Pt compliant with meds. Pt has had no further episodes of aggression, hitting staff or speaking loudly due to pt sleeping. Pt incontinent and continent this shift. No PRNs given. Pt has been easily redirected this shift, more so than previous nights. No hallucinations noted. Currently sleeping. Bed rails up x 2 and alarm on. Will continue to monitor
[2016-12-03 07:18] LABS: INR 1.83 (0.76-1.04)
[2016-12-03 07:26] LABS: ANION GAP 8 MEQ/L (5-15); BUN/CREATININE RATIO 21 RATIO (6-26); CALCIUM 9.1 MG/DL (8.4-10.2); CHLORIDE 107 MEQ/L (98-107); CO2 - CARBON DIOXIDE 29 MEQ/L (22-30); CREATININE 0.8 MG/DL (0.8-1.5); GLOMERULAR FILTRATION RATE 93; GLUCOSE 82 MG/DL (75-110); MAGNESIUM 1.3 MG/DL (1.6-2.3); POTASSIUM 3.5 MEQ/L (3.6-5); SODIUM 144 MEQ/L (134-144)
[2016-12-03] MEDS: POLYETHYL.GLYCOL 3350 PACKET 17gm PO SCH (07:58)
[2016-12-03] MEDS: CILOSTAZOL 50 MG TABLET PO SCH (07:58)
[2016-12-03] MEDS: ESCITALOPRAM 10 MG TABLET PO SCH (07:59)
[2016-12-03] MEDS: ASPIRIN 81 MG CHEWABLE TABLET PO SCH (07:59)
[2016-12-03] MEDS: QUETIAPINE 25 MG TABLET PO SCH ×2 (07:59→19:49)
[2016-12-03] MEDS: THIAMINE 100 MG TABLET PO SCH ×3 (07:59→19:49)
[2016-12-03] MEDS: PANTOPRAZOLE 40 MG TABLET PO SCH (07:59)
[2016-12-03] MEDS: FUROSEMIDE 40 MG TABLET PO SCH (08:00)
[2016-12-03] MEDS: POTASSIUM CHLORIDE 20 MEQ TABLET PO SCH ×2 (08:00→17:23)
[2016-12-03] MEDS: DORZOLAMIDE BOTH EYES SCH (08:00)
[2016-12-03] MEDS: CARVEDILOL 25 MG TABLET PO SCH ×2 (08:00→17:22)
[2016-12-03] MEDS: MAGNESIUM OXIDE 400 MG TABLET PO SCH ×2 (08:00→12:00)
[2016-12-03] MEDS: TIMOLOL EYE BOTH EYES SCH (08:00)
[2016-12-03] MEDS: TIMOLOL 0.5% EYE DROPS 5ml BOTH EYES SCH ×2 (08:01→19:49)
[2016-12-03] MEDS: FLUTICASONE NASAL SPRAY 50 MCG EA NOSTRIL SCH (08:01)
[2016-12-03 08:13] LABS: PHOSPHORUS 2.6 MG/DL (2.5-4.5)
--- NOTE | 2016-12-03 09:40 | PNPDOC ---
Subjective Date DATE: 12/03/16 TIME: 09:28 Brandt Wolff was seen at the breakfast table. He states he is doing fairly well, but is still feeling short of breath. He is on room air this morning, but was on oxygen through the night. He denies any abdominal pain or bloating, but on exam , his abdomen is mildly distended. Nursing staff report that he has been alert, oriented to self, and has been cooperative. Objective Vital Signs Vital signs Vital Signs Date Time Temp Pulse Resp B/P Pulse Ox O2 Delivery O2 Flow Rate FiO2 12/03/16 07:55 18 12/03/16 07:29 96 12/03/16 07:25 96 12/02/16 22:12 97.6 149/86 Nasal Cannula 2.00 Height (Feet): 5 Height (Inches): 11.00 Weight (Kilograms): 82.500 General General Appearance: Alert, Orientated x 1, Well Nourished, Well Developed, No Acute Distress Eyes (Brief) Eyes: FOUND: PERRL, NOT FOUND: scleral icterus ENMT (Brief) ENMT: FOUND: mucosa moist, NOT FOUND: pharnyx erythema Respiratory (Brief) Respiratory: FOUND: clear all sullivan, equal bilaterally Cardiovascular (Brief) Cardiac: FOUND: other (irregularly irregular) Abdomen (Brief) Abdominal: FOUND: BS normo active x4, distended, NOT FOUND: tender Extremities (Brief) Extremity : Side: Bilateral Extremity: leg Extremity Finding: FOUND: edema Comments TOMÁS hose bilaterally Musculoskeletal (Brief) Musculoskeletal: NOT FOUND: deformity Integumentary (Brief) Integumentary: FOUND: dry, pink, warm Psychiatric (Brief) Psychiatric: FOUND: alert, attentive, normal affect, oriented (to self) Laboratory Laboratory Laboratory Tests 12/03/16 06:48 Assessment & Plan Problems: (1) Hypomagnesemia Status: Acute (2) Hypokalemia Status: Acute (3) Pulmonary edema Status: Acute (4) Hypophosphatemia Status: Resolved (5) Atrial fibrillation, chronic Status: Chronic (6) Aspiration pneumonia Status: Resolved Qualifiers: Aspiration pneumonia type: unspecified Laterality: bilateral Lung location: lower lobe of lung Qualified Codes: J69.0 - Pneumonitis due to inhalation of food and vomit (7) Schizophrenia, unspecified Status: Chronic (8) Alzheimer's dementia without behavioral disturbance Status: Chronic (9) Ambulatory dysfunction Status: Chronic (10) Hypertension Status: Chronic (11) ASHD (arteriosclerotic heart disease) Status: Chronic (12) Hyperlipidemia Status: Chronic (13) GERD (gastroesophageal reflux disease) Status: Chronic (14) CKD (chronic kidney disease) Status: Chronic (15) Parkinsonian tremor Status: Chronic (16) Cardiomegaly Status: Chronic (17) Alcohol use disorder, severe, in sustained remission, in controlled environment Status: Chronic Assessment Plan/Intensity of Service Hypomagnesemia and hypokalemia - start MagOx and give extra K today. Recheck BMP and mg in am. Phosphorous back to normal level. A-fib - rate controlled to slightly tachycardic. Continue Coumadin per pharmacy - INR increasing up to 1.83 today. No tremor noted today. Pulmonary status is stabilizing; on room air currently. Monitor abdomen - distention noted today but he is having daily bowel movements. Psychiatric progress notes reviewed. DVT Prophylaxis: Coumadin Code Status Do Not Resuscitate Hospital Course Summary Disclaimer The hospital course summary below is not to be considered part of the above Progress Note. Hospital Course Summary 11/21/16 Agree with admission to [facility] for ongoing psychiatric care and treatment recommendations It is reported that patient has have a significant cognitive decline over the past 6 months. It is unclear regarding the length at which patient has had tremor/rigidity. He did have psychosis and was prescribed Zyprexa initially. However, this has been held since admission to the hospital. PT was consulted given that patient is requiring a lift for transfers. It is unclear if this is patient's baseline. Noted to have a cough as well as increase in WBC count today to 13.7 from 8.9 yesterday. Will recheck a Chest Xray today. Will also recheck UA to rule out infection Continues on Clindamycin antibiotic for treatment of Pneumonia. End date for 2 week course. INR today is 1.94, Continue with Coumadin daily via pharmacy dosing/management. Will give one time dose of oral potassium supplementation given mild hypokalemia of 3.5 Continue with Coreg 25mg BID for rate control Recheck CBC and BMP tomorrow 11/22/16 Appears to be less anxious and agitated this morning following dose of Seroquel overnight. WBC count continues to be mildly elevated. Again asked nursing staff to obtain a urinalysis that was ordered yesterday. Continues on Clindamycin antibiotic for treatment of Pneumonia. End date for 2 week course. Blood pressure continues to be intermittently elevated. Continue on Coreg 25 twice a day, will continue to monitor Hypokalemia, improved following oral supplementation. Recheck CBC and BMP tomorrow 11/24/16: Edwin. Nursing reported that New was complaining of feeling short of breath today with pulse ox 100% on room air. he was started on supplemental oxygen for comfort. Lung sounds revealed rhonchi initially which cleared with self forced cough revealing bilateral basilar crackles. He continues on clindamycin for prior pneumonia with treatment to be complete tomorrow (11/25/16). Will repeat CXR and monitor closely for signs of deterioration. Continue with psychiatric care per Dr. Dixon. Continue to provide safe and supportive environment. No new labs. Previous WBC trending down. Will recheck CBC and BMP in AM to monitor blood counts, electrolytes and renal function In light of edema, will monitor daily weights for signs of fluid over load. UA on 11/22 was unremarkable. Blood pressure stable. Continue with treatment. Mucinex added for mucolytic. 11/25/16- Pt. was reporting an increase in SOA yesterday. Note is reviewed. His CXR still shows infiltrate and edema, but is slowly improving. Increase Lasix to 40am, 20pm, continue current KCL. BP should support. Clinda to finish today- observe progress off the antibiotics. Is wearing O2 for comfort. Appears to have some atelectasis- increase nebs to BID and PRN. repeat labs and CXR-2 view in AM to better visualize what is going on in the lung. Chronic AFib on Warfarin- Pharmacy monitoring. Continue supportive care via primary team for psychiatric concerns. Chart is reviewed. 11/27 Respiratory status seems to be slowly improving. He is on oxygen at 2 L and sats are maintained in the 90s. Chest x-ray done on 11/26/2016 showed improving pulmonary edema and improving pneumonia. Antibiotics have been discontinued by hospitalist physician. It was recommended that patient have a repeat chest x- ray later this week or even consider pushing that out if remains clinically stable for another 1-2 weeks. Patient had an increased dose of Lasix 2 days ago with 40 mg now being given in the morning and 20 mg in the afternoon. Continue to follow potassium trending, this morning it was 3.5, he is being replaced with 20 mEq twice daily. BNP had been ordered for today and was 2248 which is better than the 3 previous readings we have on this patient. INR being monitored daily, this morning 2.73. Coumadin dosing per pharmacy. Psychiatric management per [facility] team. 11/29/16 Last chest Xray was on 11/25 which indicated improved pulmonary edema Will have staff and RT work on weaning down oxygen. Continue with DuoNeb BID Continue to trend weight, have asked staff to weight patient today. Continue with Lasix 40 mg in the am and 20 mg at 1500. PO potassium supplementation. Will recheck BMP tomorrow am to follow renal function and electrolytes Psychiatric management per [facility] team. 12/01/16 CXR on 11/29/16 was essentially unchanged from the one on 11/25/16. Patient is improving from a clinical standpoint. Nursing staff is working on weaning him off oxygen - he was on room air during breakfast this morning. Continue DuoNebs. INRs have been subtherapeutic - will give dose of prophylactic Lovenox today. Renal function has been stable. Repeat BMP, mg, and phos on 12/03/16. BP moderately elevated but would not recommend adjusting or increasing antihypertensives d/t Parkinsonian symptoms. Psych progress notes reviewed - poss Lewy body dementia. No recent med changes. 12/03/16 Hypomagnesemia and hypokalemia - start MagOx and give extra K today. Recheck BMP and mg in am. Phosphorous back to normal level. A-fib - rate controlled to slightly tachycardic. Continue Coumadin per pharmacy - INR increasing up to 1.83 today. No tremor noted today. Pulmonary status is stabilizing; on room air currently. Monitor abdomen - distention noted today but he is having daily bowel movements. LINH NORWOOD APRN Dec 03, 2016 09:31
--- NOTE | 2016-12-03 10:21 | NUR ---
WARFARIN CONSULT S: 76 y/o M on warfarin for afib; home dose is 5.5 mg daily. Goal INR 2-3. O: Date INR Warfarin Dose 11/12 5.68 HELD 11/13 5.72 HELD 11/14 5.07 HELD 11/15 5.38 HELD...VITAMIN K 1 MG PO GIVEN 11/16 3.39 HELD 11/17 1.55 3 mg 11/18 1.55 4 mg 11/19 2.31 1 mg 11/20 1.97 2 mg 11/21 1.94 2 mg 11/22 1.83 3 mg 11/23 1.61 5 mg 11/24 1.95 4 mg 11/25 2.51 3 mg 11/26 2.73 3 mg 11/27 2.85 2.5 mg 11/28 2.76 2.5 mg 11/29 1.91 3 mg 11/30 1.70 5 mg 12/01 1.55 5 mg 12/02 1.60 5 mg 12/03 1.83 Plan 5 mg A/P: The INR is subtherapeutic. Will give warfarin 5 mg PO today. The Pharmacy will continue to monitor & make adjustments accordingly. Thank you for the consult, Simeon Montanez RPh.
[2016-12-03] MEDS ORDERED: POTASSIUM CHLORIDE 20 MEQ TABLET PO ONE (12:00)
[2016-12-03] MEDS ORDERED: WARFARIN 5 MG TABLET PO SCH (12:00)
--- NOTE | 2016-12-03 14:08 | NUR ---
MID DAY SUMMARY PT HAS BEEN UP IN DAY ROOM MOST OF THE DAY OCCASIONALLY FALLING ASLEEP EASILY AWOKEN WITH VOICE OR TOUCH, WITHOUT ANXIETY AND DENIES "VOICES". HE TAKES ALL MEALS AND MEDS APPROPRIATELY. HE IS COOPERATIVE AND DENIES PAIN
--- NOTE | 2016-12-03 14:32 | NUR ---
[facility] D/C BACK TO FACILITY TOMORROW. KOREY SPOKE WITH JESUS FROM [facility] AND HE WILL CALL CM WITH [employer] TIME. KOREY SPOKE WITH PT WARREN WESLEY AND SHE IS AWARE OF PT STATUS AND D/C PLAN FOR TOMORROW. LUPILLO AWARE TO CONTACT CM IF NEEDS ARISE.
[2016-12-03] MEDS: FUROSEMIDE 20 MG TABLET PO SCH (15:31)
--- NOTE | 2016-12-03 18:21 | NUR ---
SUMMARY Pt has been pleasant, cooperative with cares, compliant with medications. No hallucinations noted, no aggressive or inappropriate behaviors noted. No PRN medication given, pt slept 1.5hr this shift. Pt has been on RA, his O2sats have been above 90 % at all times. Pt performed Incentive spirometer with minimal encouragement today. Pt has been out in the day room most of the shift. pt has been able to voice needing touse the bathroom. Pt had minimal socialization with staff and other patients today. Speech is delay, clear and appropriate, he is deaf and [place] on his Right ear. Pt denies needs or concerns at the moment.
[2016-12-03] MEDS: ALBUTEROL/IPRATROPIUM INHAL. 2.5mg-0.5mg/3ml Neb. AEROSOL SCH (19:00)
[2016-12-03] MEDS: ATORVASTATIN 40 MG TABLET PO SCH (19:49)
[2016-12-03] MEDS: LATANOPROST 0.005% EYE DROPS 2.5 ML BOTTLE BOTH EYES SCH (19:50)
[2016-12-03] MEDS ORDERED: MAGNESIUM OXIDE 400 MG TABLET PO ONE (20:00)
--- NOTE | 2016-12-03 22:55 | GENPN ---
[facility] Subjective Date DATE: 12/03/16 TIME: 22:43 Subjective/Severity of Illness Medications Current Medications Medications (Trade) Dose Ordered Sig/Lilly Start Time Stop Time Status Last Admin Dose Admin Acetaminophen (Tylenol Regular Strength) 1-2 tabs PRN for pain Q5H PRN 11/20/16 22:00 12/02/16 10:23 650 MG Aspirin (ASA) 81 mg DAILY 11/21/16 09:00 12/03/16 07:59 81 MG Atorvastatin Calcium (LIPITOR 40 mg) 40 mg HS 11/21/16 21:00 12/03/16 19:49 40 MG Cilostazol (Pletal 50 Mg) 50 mg ACB30 11/21/16 07:30 12/03/16 07:58 50 MG Clindamycin HCl (Cleocin) 300 mg TID 11/21/16 09:00 11/25/16 21:01 DC 11/25/16 20:08 300 MG Escitalopram Oxalate (LEXAPRO 10mg) 10 mg DAILY 11/21/16 09:00 12/03/16 07:59 10 MG Fluticasone Propionate (Flonase) 1 spray DAILY 11/21/16 09:00 12/03/16 08:01 1 SPRAY Furosemide (Lasix) 20 mg 08,14 11/21/16 08:00 11/25/16 15:19 DC 11/25/16 15:12 20 MG Albuterol/ Ipratropium (Duoneb) 3 ml BID PRN 11/20/16 22:00 11/25/16 15:19 DC 11/23/16 19:50 3 ML Albuterol/ Ipratropium (Duoneb) 3 ml Q2HR PRN 11/20/16 22:00 11/28/16 16:36 3 ML Latanoprost (Xalatan) 1 drop HS 11/21/16 21:00 12/03/16 19:50 1 DROP Magnesium Oxide (Magox) 400 mg BID 11/21/16 09:00 12/03/16 10:15 DC 12/03/16 08:00 400 MG Pantoprazole Sodium (Protonix) 40 mg DAILY 11/21/16 09:00 12/03/16 07:59 40 MG Polyethylene Glycol (Miralax) 17 g Q2D@09 11/21/16 09:00 12/03/16 07:58 17 G Potassium Chloride (Kdur) 20 meq BIDWM 11/21/16 08:00 12/03/16 17:23 20 MEQ Miscellaneous Medication (May use PRN orders) 1 PRN PRN 11/20/16 22:00 Haloperidol (Haldol) 0.5 mg Q6H PRN 11/20/16 22:00 11/21/16 19:02 DC 11/21/16 18:52 0.5 MG Lorazepam (Ativan) 0.5 mg Q6H PRN 11/20/16 22:00 12/01/16 19:37 0.5 MG Lorazepam (Ativan) 0.5 mg Q6H PRN 11/20/16 22:00 Haloperidol Lactate (Haldol 5 Mg/ml Inj) 0.5 mg Q6H PRN 11/20/16 22:00 11/21/16 19:02 DC Warfarin Sodium (Coumadin Protocol) NOTE 11/21/16 07:00 Warfarin Sodium (COUMADIN 2 mg) 2 mg NOON 11/21/16 12:00 11/21/16 12:30 DC 11/21/16 11:16 2 MG Carvedilol (Coreg) 25 mg BIDWM 11/21/16 10:45 12/03/16 17:22 25 MG Dorzolamide/ Timolol (Cosopt Ocumeter Plus) 1 drop DAILY 11/22/16 09:00 12/03/16 08:00 1 DROP Timolol Hemihydrate (Timoptic 0.5% Eye Drops) 1 drop BID 11/21/16 21:00 12/03/16 19:49 1 DROP Quetiapine Fumarate (Seroquel) 25 mg Q6HR PRN 11/21/16 19:00 11/22/16 18:12 DC 11/22/16 02:29 25 MG Quetiapine Fumarate (Seroquel) 12.5 mg HS 11/21/16 21:00 11/22/16 09:00 DC 11/21/16 19:07 12.5 MG Thiamine HCl (Vit. B1) 100 mg TID 11/22/16 09:00 12/03/16 19:49 100 MG Quetiapine Fumarate (Seroquel) 12.5 mg Q6HR PRN 11/22/16 18:15 11/22/16 23:50 12.5 MG Quetiapine Fumarate (Seroquel) 12.5 mg HS 11/22/16 21:00 11/26/16 15:37 DC 11/25/16 20:10 12.5 MG Warfarin Sodium (COUMADIN 5 mg) 5 mg NOON 11/23/16 12:00 11/23/16 12:15 DC 11/23/16 12:08 5 MG Albuterol/ Ipratropium (Duoneb) 3 ml BID 11/25/16 21:00 12/03/16 19:00 3 ML Furosemide (Lasix) 40 mg DAILY 11/26/16 09:00 12/03/16 08:00 40 MG Furosemide (Lasix) 20 mg 15 11/25/16 15:22 12/03/16 15:31 20 MG Warfarin Sodium (COUMADIN 3 mg) 3 mg NOON 11/26/16 12:00 11/26/16 12:30 DC 11/26/16 12:01 3 MG Quetiapine Fumarate (Seroquel) 12.5 mg BID 11/26/16 21:00 11/28/16 17:25 DC 11/28/16 08:01 12.5 MG Acetaminophen (Tylenol Regular Strength) 1-2 TABS Q5H PRN 11/27/16 06:30 Warfarin Sodium (COUMADIN 2.5 mg) 2.5 mg NOON 11/27/16 12:00 11/27/16 12:30 DC 11/27/16 11:46 2.5 MG Warfarin Sodium (COUMADIN 2.5 mg) 2.5 mg NOON 11/28/16 12:00 11/28/16 12:30 DC 11/28/16 11:58 2.5 MG Quetiapine Fumarate (Seroquel) 12.5 mg DAILY 11/29/16 09:00 12/03/16 07:59 12.5 MG Quetiapine Fumarate (Seroquel) 25 mg HS 11/28/16 21:00 12/03/16 19:49 25 MG Warfarin Sodium (COUMADIN 3 mg) 3 mg NOON 11/29/16 12:00 11/29/16 12:15 DC 11/29/16 12:12 3 MG Warfarin Sodium (COUMADIN 5 mg) 5 mg NOON 11/30/16 12:00 11/30/16 12:15 DC 11/30/16 12:19 5 MG Warfarin Sodium (COUMADIN 5 mg) 5 mg NOON 12/01/16 12:00 12/01/16 12:01 DC 12/01/16 11:32 5 MG Warfarin Sodium (COUMADIN 5 mg) 5 mg NOON 12/02/16 12:00 12/02/16 12:01 DC 12/02/16 14:20 5 MG Magnesium Oxide (Magox) 800 mg DAILY 12/03/16 09:45 12/03/16 12:00 800 MG Warfarin Sodium (COUMADIN 5 mg) 5 mg NOON 12/03/16 12:00 12/03/16 12:30 DC 12/03/16 12:00 5 MG Subjective Patient seen, chart reviewed and vitals noted to be stated. Lab work today showed mild hypomagnesemia and mild hypokalemia. He is on both mg2+ and K+ supplements. Patient was seen sitting in his wheel and reports no new problem. He is tolerating his medication and no side effect. His joints appears to be supple and there is no hypertonia and rigidity. Patient reports that he is ready to be discharged back to [facility] and his daughter who live in [place] has been supportive. Sleep: 6.75. Time of Service: 17:45 Start Time: 17:45 Stop Time: 18:00 Care >50% of this visit spent in counseling/coordination care. [facility] Exam Vitals Vital Signs Date Time Temp Pulse Resp B/P Pulse Ox O2 Delivery O2 Flow Rate FiO2 12/03/16 21:21 18 12/03/16 18:58 82 12/03/16 18:45 100 12/03/16 17:03 98.2 165/91 Room Air 12/02/16 22:12 2.00 Physical examination performed by the hospitalist. Height (Feet): 5 Height (Inches): 11.00 Mental Status Exam Muscle Strength/Tone: Weak Dressing: Casual Grooming: Fair Attitude: Cooperative Motor Activity: Normal Eye Contact: Good Speech: Normal Volume: Normal Rhythm: Appropriate Rhythm Sensory: Alert Orientation: Oriented to person Mood: Neutral Affect: Stable Rate of Thoughts: Appropriate Rate Thought Organization: [place] Associations: Illogical Abstract Reasoning: Impaired, concrete Computation: Poor Computation Perception/Psychotic: Hx psychosis,not current Attention Span/Concentration: Normal Language: Naming Impaired Fund of Knowledge: Poor fund of knowledge Memory: Poor-immediate, Poor-recent Suicidal Ideation: None Homicidal Ideation: None Insight: Poor Judgment: Poor Impulse Control: Fair Laboratory Tests Test 12/03/16 06:48 Prothromb Time International Ratio 1.83 Turbidity < 20 Sodium Level 144MEQ/L Potassium Level 3.5MEQ/L Chloride Level 107MEQ/L Carbon Dioxide Level 29MEQ/L Anion Gap 8MEQ/L Blood Urea Nitrogen 17.0MG/DL Creatinine 0.8MG/DL Glomerular Filtration Rate Calc 93 BUN/Creatinine Ratio 21RATIO Glucose Level 82MG/DL Calculated Osmolality 278MOSM/KG Calcium Level 9.1MG/DL Phosphorus Level 2.6MG/DL Magnesium Level 1.3MG/DL Icterus Index < 2 Chemistry Specimen Hemolysis < 15 Assessment and Plan (1) 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 Plan: -Admit to [facility]. Obtain Vitamin B12 and folate. Observe patient in the unit. 11/21/16: Seroquel 12.5mg po qhs. Thiamine 100mg TID. 11/21/16: Cont Seroquel 12.5mg and also change PRN Seroquel to 12.5mg q6 prn agitation 11/22/16: Continue current care 11/24/16 Continue current care 11/25/16 Continue current care 11/26/16: Schedule Seroquel 12.5mg PO q in AM in addition to HS 11/27/16: Continue current care; plan to repeat SLUMS. 11/28/16: Increase Seroquel to 12.5mg PO q AM and 25mg PO q HS; monitor for improvement in thought blocking as well as signs of EPS. 11/29/16: Continue current care; thought blocking not evident today, no sign of increase in EPS with dose increase. 11/30/16 Continue current care 12/01/16 Continue current care 12/02/16 Continue current care 12/03/16: Discharge patient tomorrow. SW to schedule follow appointment with PCP to monitor K+ and Mg++ prior to discharge Cont. current psych. meds LIBBY PRICE MD Dec 03, 2016 22:50
[2016-12-03] MEDS ORDERED: THIA100T13 PO (23:10)
[2016-12-03] MEDS ORDERED: QUET25TA73 PO ×2 (23:10)
[2016-12-03] MEDS ORDERED: MAGN400T6 PO (23:10)
[2016-12-03] MEDS ORDERED: FURO40TA5 PO (23:10)
[2016-12-03] MEDS ORDERED: FURO20TA4 PO (23:10)
--- NOTE | 2016-12-03 23:12 | PDOCECFAO ---
Admission Orders Admission Orders Admit to: [facility] Allergies: Coded Allergies: No Known Allergies (Unverified , 11/12/16) Admitting Diagnosis Schizophrenia [place] & Other Psychotic Disorders Admitting Physician Igor Aquino MD Code Status Do Not Resuscitate Anticipated LOS: Greater than 30 days Wound/Incision Care: NA [facility] Certification I certify that SNF services are required to be given on an Inpatient basis because of the patients need for residential care on a continuing basis for the condition(s) for which he/she received inpatient hospital services prior to his/her transfer to the SNF. SNF inpatient care is necessary for the following reasons Not Applicable IGOR AQUINO MD Dec 03, 2016 23:12
[2016-12-04] VITALS: BP 142/84; PULSE 89; RESP 16; TEMP 98.6; O2SAT 96
[2016-12-04 05:32] LABS: INR 2.16 (0.76-1.04); PROTHROMBIN TIME 23.5 SEC (9.31-12.49)
[2016-12-04 05:34] LABS: ANION GAP 5 MEQ/L (5-15); BUN/CREATININE RATIO 24 RATIO (6-26); CALCIUM 9.2 MG/DL (8.4-10.2); CHLORIDE 107 MEQ/L (98-107); CO2 - CARBON DIOXIDE 30 MEQ/L (22-30); CREATININE 0.8 MG/DL (0.8-1.5); GLOMERULAR FILTRATION RATE 93; GLUCOSE 91 MG/DL (75-110); MAGNESIUM 1.5 MG/DL (1.6-2.3); POTASSIUM 3.5 MEQ/L (3.6-5); SODIUM 142 MEQ/L (134-144)
--- NOTE | 2016-12-04 06:47 | NUR ---
Summary: Patient went to bed after I came on shift after medications were given. Patient was up times two to urinate. Once he walked with assistance to toilet, and the next he urinated in the urinal next to his bed with assistance. 350 ML output. Patient was up several times during night. Seemed to be mumbling under his breathe, and tried to get out of bed several times, but was easily redirected. Patient woke at 6 am and states he is ready to be up and moving around. Patient was given a shower, which he tolerated well. He has mentioned several times that he is being discharged today. Patient is up in dayroom watching TV. Will continue to monitor.
[2016-12-04] MEDS: CILOSTAZOL 50 MG TABLET PO SCH (07:41)
--- NOTE | 2016-12-04 07:47 | NUR ---
WARFARIN CONSULT S: 76 y/o M on warfarin for afib; home dose is 5.5 mg daily. Goal INR 2-3. O: Date INR Warfarin Dose 11/12 5.68 HELD 11/13 5.72 HELD 11/14 5.07 HELD 11/15 5.38 HELD...VITAMIN K 1 MG PO GIVEN 11/16 3.39 HELD 11/17 1.55 3 mg 11/18 1.55 4 mg 11/19 2.31 1 mg 11/20 1.97 2 mg 11/21 1.94 2 mg 11/22 1.83 3 mg 11/23 1.61 5 mg 11/24 1.95 4 mg 11/25 2.51 3 mg 11/26 2.73 3 mg 11/27 2.88 2.5 mg 11/28 2.76 2.5 mg 11/29 1.91 3 mg 11/30 1.70 5 mg 12/01 1.55 5 mg 12/02 1.60 5 mg 12/03 1.83 5 mg 12/04 2.16 PLAN: 5 mg A/P: INR therapeutic. Will order warfarin 5 mg PO today. Will continue to monitor & make adjustments accordingly. Thank you for the consult. Donna Ramos, PharmD, BCPS
[2016-12-04] MEDS: POTASSIUM CHLORIDE 20 MEQ TABLET PO SCH (07:54)
[2016-12-04] MEDS: CARVEDILOL 25 MG TABLET PO SCH (07:54)
[2016-12-04] MEDS: ASPIRIN 81 MG CHEWABLE TABLET PO SCH (07:54)
[2016-12-04] MEDS: FUROSEMIDE 40 MG TABLET PO SCH (07:55)
[2016-12-04] MEDS: ESCITALOPRAM 10 MG TABLET PO SCH (07:55)
[2016-12-04] MEDS: PANTOPRAZOLE 40 MG TABLET PO SCH (07:56)
[2016-12-04] MEDS: MAGNESIUM OXIDE 400 MG TABLET PO SCH (07:56)
[2016-12-04] MEDS: THIAMINE 100 MG TABLET PO SCH (07:57)
[2016-12-04] MEDS: QUETIAPINE 25 MG TABLET PO SCH (07:57)
[2016-12-04 08:10] VITALS: BP 133/80; PULSE 97; RESP 14; TEMP 97.8; O2SAT 98
[2016-12-04] MEDS: TIMOLOL EYE BOTH EYES SCH (09:03)
[2016-12-04] MEDS: DORZOLAMIDE BOTH EYES SCH (09:03)
[2016-12-04] MEDS: TIMOLOL 0.5% EYE DROPS 5ml BOTH EYES SCH (09:04)
[2016-12-04] MEDS: FLUTICASONE NASAL SPRAY 50 MCG EA NOSTRIL SCH (09:04)
--- NOTE | 2016-12-04 09:11 | NUR ---
CM PT WILL D/C BACK TO [facility] TODAY PER DR PRICE. FACILITY WILL TRANSPORT AT 10:00AM. PT WARREN WESLEY IS AWARE OF D/C PLANS FOR TODAY. LUPILLO IS AWARE TO CONTACT CM IF NEEDS ARISE.
[2016-12-04 09:28] VITALS: O2SAT 99
[2016-12-04] MEDS: ALBUTEROL/IPRATROPIUM INHAL. 2.5mg-0.5mg/3ml Neb. AEROSOL SCH (09:29)
--- NOTE | 2016-12-04 10:23 | NUR ---
Discharge Patient is discharged from [facility] at [address] [facility] via facility transport. Patient had one outfit and no other personal belongings. Report called to LARA Galvan ([phone]); unit contact information given along with plans for follow-up care with PCP and MH professional as outlined in P[facility]. Labs (BMP, Mag, INR) to be drawn on Thursday 12/07. No pending labs on discharge
[2016-12-04] MEDS ORDERED: POTASSIUM CHLORIDE 20 MEQ TABLET PO ONE (12:00)
[2016-12-04] MEDS ORDERED: WARFARIN 5 MG TABLET PO ONE (12:00)
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
--- NOTE | 2016-12-05 12:07 | PDONTRACK ---
Right on Track Program Date of Discharge Dec 04, 2016 at 10:10 Scheduled Aspirin (Aspirin), 81 MG PO DAILY, (Reported) Atorvastatin Calcium (Atorvastatin Calcium), 40 MG PO HS, (Reported) Carvedilol (Coreg), 25 MG PO BIDWM Cilostazol (Cilostazol), 50 MG PO DAILY, (Reported) Dorzolamide HCl/Timolol Maleat (Cosopt Eye Drops), 1 DROP BOTH EYES DAILY, ( Reported) Escitalopram Oxalate (Lexapro), 10 MG PO DAILY, (Reported) Fluticasone Propionate (Fluticasone Prop 50 mcg/actuation Nasal [place]), 1 SPRAY EA NOSTRIL DAILY Furosemide (Furosemide), 40 MG PO DAILY Furosemide (Furosemide), 20 MG PO 15 Latanoprost (Latanoprost), 1 DROP BOTH EYES HS, (Reported) Magnesium Oxide (Magnesium Oxide), 800 MG PO DAILY Pantoprazole Sodium (Pantoprazole Sodium), 40 MG PO DAILY, (Reported) Polyethylene Glycol 3350 (Miralax), 17 G PO QOD, (Reported) Potassium Chloride (Potassium Chloride), 20 MEQ PO BID, (Reported) Quetiapine Fumarate (Quetiapine Fumarate), 12.5 MG PO DAILY Quetiapine Fumarate (Quetiapine Fumarate), 25 MG PO HS Thiamine (Thiamine HCl), 100 MG PO TID Timolol Maleate (Timolol Maleate), 1 DROP OP BID, (Reported) Scheduled PRN Acetaminophen (Tylenol), 325-650 MG PO Q5H PRN for DISCOMFORT Ipratropium/Albuterol Sulfate (Iprat-Albut 0.5-3(2.5) mg/3 ml), 3 ML AEROSOL Q2HR PRN for SHORTNESS OF AIR/WHEEZING Discontinued Medications Cholecalciferol (Vitamin D3) (Vitamin D), 1,000 UNIT PO DAILY, (Reported) Clindamycin HCl (Clindamycin HCl), 1 CAP PO TID Docusate Sodium (Docusate Sodium), 100 MG PO DAILY, (Reported) Furosemide (Furosemide), 20 MG PO 08,14 Ipratropium/Albuterol Sulfate (Iprat-Albut 0.5-3(2.5) mg/3 ml), 3 ML AEROSOL BID Magnesium Oxide (Magnesium Oxide), 400 MG PO BID, (Reported) Multivitamin (Multi-Day Vitamins), 1 TAB PO DAILY, (Reported) Vitamin B Complex (Vitamin B Complex), 1 TAB PO DAILY, (Reported) Date: Dec 05, 2016 Right on Track Program: 24 Hour Follow-Up Date of Discharge: Dec 04, 2016 Discharge Summary Received: Yes Care Plan Received: Yes Follow up: Follow Up Appt. Scheduled (Seen today by GENESIS) Education: Diagnosis Ed. Review Total LACE Score: 11 Discussed w/pt and caregiver: No Recommendations for follow-up Spoke with patient's nurse, Alysia at [facility]. Reviewed discharge instructions and discharge medications. No further questions. Spoke with GENESIS Jade with Dr. Finley, who evaluated patient this morning. Patient has received 2 weeks of clindamycin and this can be discharged today. She will continue to follow patient regularly, he is scheduled for an INR on 12/07/16. Problems: (1) Hypomagnesemia Status: Acute (2) Hypokalemia Status: Acute (3) Pulmonary edema Status: Acute (4) Hypophosphatemia Status: Resolved (5) Atrial fibrillation, chronic Status: Chronic (6) Aspiration pneumonia Status: Resolved (7) Schizophrenia, unspecified Status: Chronic (8) Alzheimer's dementia without behavioral disturbance Status: Chronic (9) Ambulatory dysfunction Status: Chronic (10) Hypertension Status: Chronic (11) ASHD (arteriosclerotic heart disease) Status: Chronic (12) Hyperlipidemia Status: Chronic (13) GERD (gastroesophageal reflux disease) Status: Chronic (14) CKD (chronic kidney disease) Status: Chronic (15) Parkinsonian tremor Status: Chronic (16) Cardiomegaly Status: Chronic (17) Alcohol use disorder, severe, in sustained remission, in controlled environment Status: Chronic Copies To 1: ANIBAL FINLEY MD, JULIE V APRN Dec 05, 2016 12:06
== END 2016-12-04 10:10 | DRG 56 ==
LOC: GEN 19:35
PROVIDERS: ADMIT Psychiatry & Neurology Psychiatry; ATTEND Psychiatry & Neurology Psychiatry
DX: G31.83 Neurocognitive disorder with Lewy bodies (principal); J69.0 Pneumonitis due to inhalation of food and vomit; J81.0 Acute pulmonary edema; F02.81 Dementia in other diseases classified elsewhere, unspecified severity, with behavioral disturbance; G30.9 Alzheimer's disease, unspecified; G20 Parkinson's disease; I12.9 Hypertensive chronic kidney disease with stage 1 through stage 4 chronic kidney disease, or unspecified chronic kidney disease; N18.9 Chronic kidney disease, unspecified; I25.10 Atherosclerotic heart disease of native coronary artery without angina pectoris; I48.2 Chronic atrial fibrillation; I51.7 Cardiomegaly; F10.21 Alcohol dependence, in remission; R26.89 Other abnormalities of gait and mobility; Z66 Do not resuscitate; E78.5 Hyperlipidemia, unspecified; K21.9 Gastro-esophageal reflux disease without esophagitis; E83.39 Other disorders of phosphorus metabolism; E87.6 Hypokalemia; Z79.01 Long term (current) use of anticoagulants; Z79.82 Long term (current) use of aspirin
CPT/HCPCS: 36415; 80048; 80053; 80061; 80069; 81003; 82607; 82746; 83036; 83735; 83880; 84100; 85007; 85025; 85027; 85610; 87486; 87581; 87633; 87798; 94640; 94664

== ENCOUNTER 2016-12-15 17:54 | Emergency (ER) | payer MEDICARE, OTHER ==
[~2016-12-15] VITALS: Ht 177.8 cm; Wt 80.1 kg
[~2016-12-15 17:54] MED LIST changes: -ACET-62 PO; -ACET325T51 PO; -CARV6.252 PO; -CHOL100047 PO; -CLIN300C86 PO; -DOCU-175 PO; -DONE23TA7 PO; -MULT-933 PO; -NYST15CR TOP; -OLAN20TA17 PO; +QUET25TA73 PO; +THIA100T13 PO; +TIMO5DRO7 BOTH EYES; -TIMO5DRO7 OP; -VITA1TAB21 PO; -WARF1TAB6 PO; -WARF5TAB6 PO
[2016-12-15 17:55] VITALS: Ht 177.8 cm; Wt 80.1 kg
--- OUTSIDE RECORDS SUMMARY | 2016-12-15 17:58 | XMS REPORT | Continuity of Care Document ---
Author Author [facility] Organization [facility] Address Unknown Phone Unavailable Allergies Active Description [...] Raghu Barfield MD 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 [place] CORONARY VESSEL 03/09/2013 Raghu Barfield MD 427.31 [...] Status Pt. Type Provider Facility Loc./Unit Complaint [id number] 03/09/2013 07:54:00 2012 14:57:00 DIS Inpatient Lico DUFFY, [facility] [id number] 03/02/2013 12:55:00 2012 12:55:00 DIS Outpatient Lico DUFFY, [facility] SHARI
--- OUTSIDE RECORDS SUMMARY | 2016-12-15 18:05 | XMS REPORT | Continuity of Care Document ---
Author Author [facility] Organization [facility] Address Unknown Phone Unavailable Allergies Active Description [...] Raghu Barfield MD 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 [place] CORONARY VESSEL 03/09/2013 Raghu Barfield MD 427.31 ATRIAL FIBRILLATION 03/09/2013 Raghu Barfield MD 428.0 CONGESTIVE HEART FAILURE NOS 03/09/2013 Raghu Barfield MD 585.9 CHRONIC KIDNEY DISEASE, UNSPECIFIED 03/09/2013 Raghu Barfield MD 715.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 03/09/2013 Raghu Barfield MD 719.46 JOINT PAIN-L/LEG 03/09/2013 Raghu Brafield MD V45.82 PERCUTANEOUS TRANSLUM CORON ANGIOPLASTY STATUS [...] Status Pt. Type Provider Facility Loc./Unit Complaint [id number] 03/09/2013 07:54:00 2012 14:57:00 DIS Inpatient Lico DUFFY, [facility] [id number] 03/02/2013 12:55:00 2012 12:55:00 DIS Outpatient Lico DUFFY, [facility] SHARI
--- NOTE | 2016-12-15 18:08 | ERPDOC ---
Departure Disposition Decision Date: Dec 15, 2016 Disposition Decision Time: 19:31 Disposition: 01 DISCHARGED HOME, SELF-CARE Impression Impression Impression: Primary Impression: Face lacerations Qualified Codes: S01.81XA - Laceration without foreign body of other part of head, initial encounter Additional Impression: Fall Qualified Codes: W19.XXXA - Unspecified fall, initial encounter Severity: Moderate Condition: Improved Seen By: Physician only Referrals: ANIBAL FINLEY MD (Family) Patient Instructions: Care For Your Stitches (ED), Laceration (ED), Steristrips (ED) Problems/Meds/Labs Reviewed?: Yes Medications reviewed and manag: Yes Additional Instructions: Keep wound dressing in place, clean, and dry for the next 24 hours. Thereafter wash the wound daily with mild soap and water, cover with a light coat of Vaseline, dry gauze, and dressing daily until healed. Have stitches removed in 6-8 days. Follow up care ordered?: Yes Mental Status: Alert HPI - Head Injury General Chief Complaint: Fall Stated Complaint: FALL Time Seen by Provider: 17:58 Source: EMS, care home records Exam Limitations: clinical condition, dementia HPI - Head Injury Initial Comments Patient had an unwitnessed fall in the care home, in his room today. Approximately one hour ago the patient fell, staff was not in the room but heard him fall, and was immediately at his side. Patient had fallen headfirst onto the floor, striking the floor, sustaining a superficial laceration to the left zygoma area, and a large stellate full thickness laceration to the left eyebrow. She was transferred by EMS for evaluation of both fall as well as head injury with laceration And has severe dementia with schizophrenia, and is essentially averbal. Occurred At: home Onset: Rapid Duration: 1 hr Severity: moderate Location: frontal 1 - Heart 4 cm stellate laceration, full-thickness 2 - Small 2 cm partial-thickness superficial skin tear Method of Injury: fell Loss of Consciousness: no loss of consciousness Associated Symptoms: DENIES: chest pain, cough, diaphoresis, fever/chills, headaches, loss of appetite, malaise, nausea/vomiting, rash, seizure, shortness of breath, syncope, weakness Hx of Similar Symptoms: Yes Allergies: Coded Allergies: No Known Allergies (Unverified , 11/12/16) Past History Patient Surgical History Unknown at this time and patient cannot provide history. Past Medical History Metabolic: hypercholesterolemia, hypertension Cardiac: A-fib, CAD, CHF Male: renal insufficiency Psychological: dementia, schizophrenia Surgical History Joint: knee Vaccines Hx Influenza Vaccination: Yes (06/2016) Hx Pneumococcal Vaccination: Yes (06/2016) Social History Smoking Status: Never smoker Does patient use chewing tobac: No Second Hand Exposure: No Substance Use Type: does not use Alcohol Intake: none, former alcohol drinker Marital Status: Housing: care home Advance Directives: Yes DNR Review of Systems Constitutional Constitutional: DENIES: appetite decrease, appetite increase, chills, dizziness , fever, weakness ENMT Ears: DENIES: pain Hearing: DENIES: hearing loss, tinnitus Balance: DENIES: vertigo Mouth/Throat: DENIES: change in swallowing, change in voice, hoarsness, painful swallowing, sore throat Cardiovascular Cardiac: DENIES: chest pain, dyspnea on exertion Rhythm/Rate: DENIES: irregular beat, palpitations, tachycardia Vascular: DENIES: pedal edema Pulmonary Respiratory: DENIES: cough, dyspnea, pleuritic chest pain GI Upper Abdomen: DENIES: dysphagia, heartburn/indigestion, nausea, pain, vomiting Lower Abdomen: DENIES: blood in stool, constipation, diarrhea, pain General: DENIES: burning, dysuria, frequency, pain, urgency Musculoskeletal General: DENIES: cramps, joint pain, joint swelling, pain, weakness Integumentary Comments Facial lacerations as described Neurological General: DENIES: headache, numbness, tingling, vertigo, weakness Psychiatric Psychiatric: DENIES: anxiety, depression, nervousness Physical Exam General General Nourishment: well nourished, well developed, appears stated age General Body Habitus: well groomed Vitals and Pain First Documented Vital Signs Date Time Temp Pulse Resp B/P Pulse Ox O2 Delivery O2 Flow Rate FiO2 12/15/16 17:55 98.2 97 22 163/83 97 Room Air Weight: Kilograms: 80.100 Height (feet): 5 Height (inches): 10.00 Triage Pain Scale: RN VS reviewed by Provider: Yes Normal Exams: Eyes: Pupils are PERRLA w/ EOMI, No scleral icterus, irritation, or foreign bodies noted Eyes (brief) Eyes Brief: found: EOMI, PERRL, not found: scleral icterus ENMT (brief) ENMT Brief: FOUND: TM clear, TM good light reflex, ear canals clear, mucosa moist, normal dentition, NOT FOUND: nasal erythema, nasal exudate, nasal swelling, pharnyx erythema, tonsillar deviation Comments Large 4-5 cm laceration over the left brow, intensive tissue contusion, full thickness, with multiple splits/stellate lacerations. Small 2 cm partial-thickness skin tear over the left, with 1 cm spreading ecchymosis surrounding the laceration. Neck (brief) Neck: FOUND: trachea midline, NOT FOUND: JVD, adenopathy, nuchal rigidity, spasm, tenderness, thyromegaly, tracheal deviation Respiratory (brief) Respiratory: FOUND: clear all sullivan, equal bilaterally, symmetrical, NOT FOUND : rales, tenderness, wheezes Cardiovascular (brief) Cardiac: FOUND: regular rate, regular rhythm, NOT FOUND: click, gallop, murmur , pedal edema Capillary Refill: <2 sec Pulses: all distal extremities, equal, strong Abdomen (brief) Abdominal Brief: FOUND: bowel normo active x4, soft, NOT FOUND: distended, hepatosplenomegaly, tender Lymphatic (brief) Lymphatic Brief: NOT FOUND: adenopathy, lymphedema Musculoskeletal (brief) Musculoskeletal Brief: NOT FOUND: deformity, loss of motion, spasm, tenderness Integumentary (brief) Integumentary Brief: FOUND: dry, pink, warm Neurologic (brief) Neurological Brief: FOUND: CN w/o gross def to obs, motor-no gross deficits, sensory-no gross deficits Comments No obvious focal deficits, however patient does not follow commands Psychiatric (brief) Psychiatric Brief: FOUND: alert, attentive, NOT FOUND: normal affect, oriented Procedures Procedures Performed Procedures Performed: Laceration Repair Laceration/Wound Repair Wound/Laceration Repair #1: Wound Location: face Wound Length (cm): 5 Depth, Shape: subcutaneous, stellate Explored: clean Irrigated: saline Prep: hibiclens Anesthesia: 0.5% Bupivicaine Volume Anesthetic (ccs): 6 Type of Block: local Wound Debrided: minimal Wound Revision?: No Repaired With: Sutures Suture Size: 4:0 Suture Type: prolene Number of Sutures: 9 Layer Closure?: No Wound/Laceration Repair #2: Wound Location: face Wound Length (cm): 2 Depth, Shape: subcutaneous, linear Explored: clean Irrigated: saline Prep: hibiclens Wound Debrided: minimal Wound Revision?: No Repaired With: Steri-strips Number of Sutures: 3 Progress Results/Orders Orders Procedure Category Date Status Time Bupivacaine 0.5% PHA 12/15/16 Complete (Marcaine 0.5%) 18:15 Ct Head W/O Contrast CT 12/15/[address] Cervical Spine W/O CT 12/15/16 Logged Contrast Irrigate/Clean Wound EDM 12/15/16 Transmitted 19:07 Dressing (Ed) EDM 12/15/16 Transmitted 19:07 Neomycin/Polymyxin/Bacitracin PHA 12/15/16 Complete (Neosporin 19:15 Medications Current ED Medications Bupivacaine HCl (Marcaine 0.5%) 150 mg O ONCE INFIL Last administered on t 18:17; Start 12/15/16 at 18:15; Stop 12/15/16 at 18:16; Status DC Neomycin/ Polymyxin/ Bacitracin (Neosporin) 1 applic O ONCE TOP ; Start at 19:15; Stop 12/15/16 at 19:16; Status DC Progress Progress CT head and C-spine - n Facial lacerations repaired, and dressed in the ER PENNY SHELBY MD Dec 15, 2016 18:08
[2016-12-15] MEDS ORDERED: BUPIVACAINE 0.5% (5mg/ml) 30ml INJ SDV INFIL ONE (18:15)
--- NOTE | 2016-12-15 18:16 | NUR ---
PROVIDER DR SHELBY AT BEDSIDE TO SUTURE
[2016-12-15] MEDS ORDERED: BISA10SU8 RECTALLY (18:20)
[2016-12-15] MEDS ORDERED: CARV25TA PO (18:22)
[2016-12-15] MEDS ORDERED: WARF6TAB23 PO (18:22)
[2016-12-15] MEDS ORDERED: DOCU100T PO (18:22)
[2016-12-15] MEDS ORDERED: FLUT16SP EA NOSTRIL (18:25)
[2016-12-15] MEDS ORDERED: FURO40TA5 PO (18:25)
[2016-12-15] MEDS ORDERED: FURO20TA4 PO (18:25)
[2016-12-15] MEDS ORDERED: MAGN500C4 PO (18:27)
[2016-12-15] MEDS ORDERED: POLY17PO6 PO (18:29)
[2016-12-15] MEDS ORDERED: QUET25TA73 PO ×2 (18:31)
[2016-12-15] MEDS ORDERED: ACET325T51 PO (18:33)
[2016-12-15] MEDS ORDERED: THIA100T13 PO (18:33)
[2016-12-15] MEDS ORDERED: CHOL100055 PO (18:34)
[2016-12-15] MEDS ORDERED: NEOMYCIN/POLYM/BACITR OINT PACKET TOP ONE (19:15)
--- NOTE | 2016-12-15 19:41 | NUR ---
REPORT REPORT GIVEN TO LUPE SANCHEZ AT [facility]
[2016-12-15 20:41] VITALS: BP 138/87; PULSE 90; RESP 19; TEMP 98.2; O2SAT 94
--- NOTE | 2016-12-15 20:41 | NUR ---
DEPART PATIENT TAKEN BY WHEELCHAIR TO RETIREMENT VAN. PAPERWORK SENT WITH DEBURRER MACHINE. PATIENT STABLE. PATIENT TRANSFERS TO WHEELCHAIR WITH 2 PERSON STANDBY ASSIST, TOLERATES ACTIVITY FAIR.
--- NOTE | 2016-12-16 08:52 | DI ---
Indication: ITS.REASON: fall, facial injury PROCEDURE: CT HEAD W/O CONTRAST: Encounter: Initial Comparison: November 14, 2016 Technique: Axial CT images through the head were performed without contrast. Iterative Reconstruction dose reducing technique was utilized. FINDINGS: Moderate generalized atrophy. The ventricles are stable. Trace amount of subarachnoid hemorrhage in the right parietal lobe.. There are scattered areas of low attenuation in the white matter which most likely represent changes of chronic microvascular ischemia. The CT attenuation of the brain parenchyma is otherwise normal within the cerebellum, brain stem, and cerebral hemispheres. The tympanic cavities and mastoid air cells are free of appreciable disease. There are no definite fractures of the skull base, calvarium, or visualized portion of the midface. Large left frontal scalp hematoma. IMPRESSION: Trace right parietal subarachnoid hemorrhage. There is a preliminary report by [facility]. The preliminary report does not mention the subarachnoid hemorrhage. This finding was called to the emergency department physician on duty Dr. Katie Parker at 0845 on December 16, 2016 .
--- NOTE | 2016-12-16 08:54 | DI ---
Indication: ITS.REASON: fall, hyperextension of neck PROCEDURE: CT CERVICAL SPINE W/O CONTRAST: Encounter: Initial Comparison: None Technique: Axial CT images through the cervical spine were performed without contrast. Coronal and sagittal reformatted images were also obtained. Automated Exposure Control and Iterative Reconstruction dose reducing techniques were utilized. FINDINGS: The alignment of the cervical spine is straightened. Multilevel moderate degenerative changes are present with areas of neural foraminal and central canal stenosis. There is no evidence of acute fracture or subluxation of the cervical spine. The atlantoaxial articulation, dens, and upper cervical spine demonstrate no subluxation. 2 cm low-attenuation right thyroid nodule. IMPRESSION: 1. No acute traumatic abnormality of the cervical spine. 2. Right thyroid nodule could be further evaluated with thyroid ultrasound. There is a preliminary report by [facility]. .
--- NOTE | 2016-12-16 09:00 | NUR ---
RADIOLOGY FOLLOW UP DR. WAGNER CALLED DR. Carrie MONTGOMERY AND INFORMED HER THAT PATIENT HAD A TINY SUBARACHNOID HEMMORRHAGE IN THE RT. PAIRTEAL AREA. DR. Carrie MONTGOMERY RECOMMENDS A REPEAT CT TOMORROW. CALLED LUPE AT [facility] AND ADVISED HER OF THIS.
--- NOTE | 2016-12-16 11:53 | NUR ---
UPDATE PHONE CALL FROM LUPE ISBELL (NURSE AT [facility]). FACILITY ADVISES THEY RECEIVED THE INFORMATION CALLED EARLIER ABOUT CT SCAN INFORMATION. PT'S DOCTOR UPDATED AND FAMILY STATES PT IS CONTINUED TO BE CONFUSED. ALSO NOTED MOBILE XRAY OF LT UPPER ARM DONE ON SITE/ [place] TODAY AND NEEDS FURTHER EVALUATION. DR. MONTGOMERY IN ER TODAY NOTED CT RESULTS ORIGINALLY, CALLED BY JACQUARD FIXER TO THE FACILITY. BASED ON THE INFORMATION OF THE PATIENT CT SCAN, CONFUSION, LT UPPER ARM CONCERNS DR. MONTGOMERY FELT IT APPROPRIATE THAT THE PT GO TO [place] BY [facility] FOR EVALUATION. INFORMATION SHARED WITH LUPE AND ALSO THE DAUGHTER OF THE PATIENT IN [place] [phone]. DAUGHTER HAS BEEN UPDATED AND AGREES WITH ALL INFORMATION NOTED ABOVE.
== END 2016-12-15 20:41 | disposition home or self-care (01) ==
LOC: ED 17:54
DX: S01.112A Laceration without foreign body of left eyelid and periocular area, initial encounter (principal); S01.412A Laceration without foreign body of left cheek and temporomandibular area, initial encounter; W19.XXXA Unspecified fall, initial encounter; Y93.9 Activity, unspecified; Y92.122 Bedroom in nursing home as the place of occurrence of the external cause; Y99.8 Other external cause status
CPT/HCPCS: 12013; 70450; 72125; 99284; A9270